=== PATIENT | male | born 1965 | race Caucasian/White ===

== ENCOUNTER → 2020-04-10 15:09 | Outpatient (CLI) | payer OTHER, SELFPAY ==
[2017-02-12 18:17] VITALS: BMI 32.8
--- NOTE | 2020-04-10 15:14 | RAD_ITS ---
STUDY: X-RAY - ABDOMEN/PELVIS REASON FOR EXAM: Male, 54 years old. abd discomfort, bloody stool TECHNIQUE: AP supine and upright views of the abdomen and pelvis. COMPARISON: None. FINDINGS: Normal visualized lung bases. There is an unremarkable bowel gas pattern. There is no demonstrated free abdominal air. The visualized liver, spleen and kidneys are grossly normal in size and morphology. Normal soft tissue structures. Normal visualized osseous structures. RAD/Abd Inc Decub and/or Erect IMPRESSION: Normal x-ray examination of the abdomen and pelvis. Electronically Signed: Michael Armendariz MD at 16:57 EST Tel , Service support ,
== END ==
LOC: MTLAB 15:12 → MTRAD 15:13
PROVIDERS: PCP Family Medicine; Referring Provider Family Medicine; Visit Provider Family Medicine
DX: K92.1 Melena (principal)
CPT/HCPCS: 74019

== ENCOUNTER → 2020-04-16 09:31 | Outpatient (CLI) | payer OTHER, SELFPAY ==
[2020-04-16 08:55] VITALS: BMI 32.9
[2020-04-16 10:36] LABS: Erythrocyte Sedimentation Rate 7 mm/hr (0-20)
[2020-04-16 10:39] LABS: Absolute Lymphocyte Count 1.46 X10^3/uL (0.83-4.51); Absolute Neutrophil Count 2.7 X10^3/uL (2.0-7.7); Basophil# 0.09 X10^3/uL; Basophil% 1.8 % (0-1); Eosinophils% 4.1 % (0-5); Hematocrit 46.7 % (40-54); Hemoglobin 15.2 g/dL (13.0-16.5); Lymphocyte # 1.46 X10^3/ul (4.0); Lymphocyte % 29.9 % (19-41); Mean Corp Hgb Conc 32.5 g/dL (32-36); Mean Corpuscular Volume 82.9 fL (80-94); Mean Platelet Vol. 10.2 fl (6.2-12.0); Monocyte# 0.45 X10^3/uL; Monocyte% 9.2 % (0-10); NRBC Flagged by Analyzer 0 % (0-5); Neutrophil # 2.66 X10^3/uL (2.7-7.7); Neutrophil % 54.4 % (47-70); Platelet Count 396 K/mm3 (150-450); RBC Distribution Width CV 12.8 % (11.6-14.6); RBC Distribution Width SD 38.7 fl (35.1-43.9); Red Blood Count 5.63 M/mm3 (4.6-6.2); White Blood Count 4.9 K/mm3 (4.4-11.0)
[2020-04-16 11:06] LABS: AST(SGOT) 23 U/L (15-37); Alanine Aminotransfer ALT/SGPT 46 U/L (16-61); Albumin, Serum 3.7 g/dL (3.2-5.0); Alkaline Phosphatase 87 U/L (45-117); Anion Gap 7 (5-15); BUN 11 mg/dL (7-18); BUN/Creat Ratio 9.5 RATIO (10-20); CRP < 2.90 mg/L (0.0-3.0); Chloride 103 mmol/L (98-107); Creatinine, Serum 1.16 mg/dL (0.70-1.30); EST Glomerular Filtration Rate 70 mL/min (>60); Est Glom Filt Rate - Afr Amer 84 mL/min (>60); Globulin 3.8 g/dL (2.2-4.2); Glucose 104 mg/dL (74-106); Protein, Total 7.5 g/dL (6.4-8.2); Sodium Level 138 mmol/L (136-145)
--- NOTE | 2020-04-16 14:38 | CT_ITS ---
STUDY: CT ABDOMEN AND PELVIS WITH CONTRAST REASON FOR EXAM: Male, 54 years old. PRESSURE BELOW UMBILICUS, ABD PAIN LT and gt; RT. RADIATION DOSAGE (If Supplied By Facility): CTDIvol = ( 17.07 ) mGy, DLP = ( 2251.06 ) mGycm TECHNIQUE: Transaxial images were obtained from the dome of the diaphragm to the symphysis pubis with oral contrast. Oral and amp; IV Gastrografin and amp; 100mL Isovue-300 was administered. Sagittal and coronal images were reconstructed. Individualized dose optimization techniques were used for this CT. COMPARISON: None. FINDINGS: Limited views of the lower chest show mild diffuse decreased density of the lung trevizo which could be subsegmental atelectasis or mild pulmonary edema. No gross effusions. There is decreased attenuation of the liver consistent with steatosis. Normal gallbladder and extrahepatic biliary system. Normal spleen. Normal pancreas. Normal bilateral adrenal glands. Normal right kidney. Left kidney has a 3 mm nonobstructing mid renal stone, otherwise normal left kidney. Normal visualized stomach. Normal small intestine. Nondistended colon. Sigmoid diverticulosis without diverticulitis. There is a 5 cm length of circumferential wall thickening in the distal sigmoid colon for which neoplasm cannot be excluded. This can be seen on axial image 109 and sagittal image 89. Colonoscopy is recommended. The appendix is visualized and appears normal. Normal abdominal aorta. Normal inferior vena cava. Normal retroperitoneum. Normal urinary bladder. There is enlargement of the prostate gland. There is a small umbilical hernia containing fat. Normal osseous structures. CT/Abdomen/Pelvis WITH Contrast IMPRESSION: 5 cm circumferentially thickened segment of distal sigmoid colon for which neoplasm is possible. Colonoscopy is recommended. Nonobstructing stone of the mid left kidney. Electronically Signed: Ruiz Lara MD at 18:08 EST , Service support ,
== END ==
PROVIDERS: PCP Family Medicine; Referring Provider Surgery; Visit Provider Surgery
DX: K56.609 Unspecified intestinal obstruction, unspecified as to partial versus complete obstruction (principal); R10.9 Unspecified abdominal pain
CPT/HCPCS: 36415; 74177; 80053; 85025; 85652; 86140; Q9967

== ENCOUNTER 2020-04-20 05:29 | Day surgery (SDC) | payer OTHER, SELFPAY ==
[2020-04-16 08:55] VITALS: BMI 32.9
[2020-04-20 05:49] VITALS: BP 143/80; PULSE 53; RESP 16; TEMP 36.5; O2SAT 97; BMI 31.8
[2020-04-20] MEDS: Lactated Ringers 1,000 ML 100 ML IV (05:55)
--- NOTE | 2020-04-20 06:19 | PCM.HP.BLA ---
Problem List (1) Abdominal pain Status: Acute Qualifiers: (2) Diarrhea Status: Acute Qualifiers: (3) Blood in stool Status: Acute History and Physical Date of Admission: 04/20/20 Intake Visit Reasons: CSCOPE/ BLOODY STOOL Chief Complaint: Blood in stool/diarrhea/abdominal pain Physicist Nuclear Required: No Accompanied by: Is patient in pain?: No Allergies lisinopril Allergy (Verified 04/16/20 08:58) Hives Medications Aspirin [Aspirin, Baby] 81 mg PO DAILY@0800 06/25/16 [History Confirmed 04/16/20] Hydrochlorothiazide [Hctz] 25 mg PO DAILY 06/25/16 [History Confirmed 04/16/20] amlodipine 5 mg tablet 10 mg PO DAILY tab 04/16/20 [History Confirmed 04/16/20] [facility] Medical History (Updated 04/16/20 @ 16:[address] Colten Rizvi MD) Blood in stool (Acute) Diarrhea (Acute) Abdominal pain (Acute) Hypertension (Chronic) Hemorrhoids (Acute) Surgical History (Updated 04/16/20 @ 08:54 by Daija Carrera) No history of previous surgery (Acute) Family History (Updated 04/16/20 @ 08:55 by Daija Carrera) Mother Hypertension High cholesterol Father High cholesterol Hypertension Social History (Updated 04/16/20 @ 16:[address] Colten Rizvi MD) Smoking Status: Never smoker HPI HPI HPI: EZ CARLISLE, is a 54 M who presents to the office today for surgical consultation regarding problems with diarrhea some intermittent blood per rectum and clots bloating crampy abdominal pain and left lower quadrant pain. The patient is referred by Dr. Ronnell Moss and a written copy my surgical consult recommendations will return to him. The patient thinks he had fever just on one occasion. He has been eating a normal diet. He has not lost weight. Both he and his Daxa have had COVID-19. That was several months ago. He does not believe that the current symptoms mimic that. He has had hypertension since age 28. His mother has had colon polyps. At the [facility] on June 25, 2016 I performed a colonoscopy for him. There was a diminutive sessile polyp in the mid sigmoid colon measuring only 5 mm. Mild sigmoid diverticulosis was identified. There is no active disease at that time. 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 He denies any previous hernia repairs. He has never had a cardiac stress test. He is able to climb a flight of stairs but does become dyspneic but he blames that upon his body weight. No history of myocardial infarction stroke diabetes or DVT HPI HPI HPI: EZ CARLISLE, is a 54 M who presents to the office today for ROS General General: Yes weight change; no appetite, fatigue, colon cancer, breast cancer or weakness HEENT HEENT: No difficulty swallowing, eye injury, eye surgery, swollen glands or hoarseness Endo Endocrine: No thyroid disease, diabetes mellitus, thyroid cancer, Hair loss, heat intolerance or cold intolerance Skin Skin: No rash or changing moles Breast Breast: No left breast lump, right breast lump, nipple discharge, breast pain, abnormal mammogram, abnormal US or breast enlargement Musc Musculoskeletal: No back problems, arthritis, rheumatoid arthritis, gout or joint pain Cardio Cardiovascular: Yes high blood pressure; no murmur, pacemaker, heart disease, atrial fibrillation, heart attack, heart stent, palpitations, shortness of breat with exertion or chest pain Psych Psychiatric: No depression, anxiety or hearing voices Resp Respiratory: No shortness of breath, No sleep apnea, No cough, No COPD, No asthma, No emphysema, No wheezing Gastro Gastrointestinal: Yes abdominal pain, No nausea or vomiting, Yes diarrhea, No constipation, Yes blood in stool, No acid reflux, Yes hemorrhoids, No ulcers, No gallbladder problem, No black,tarry stools Jorje Hematologic: No blood thinners, No blood disorders, No bleeding, No anemia, No blood clots Neuro Neurologic: No system reviewed and no additional complaints, except as docu, No as per HPI, No abnormal walking, No abnormal hearing, No abnormal movements, No abnormal speech, No behavioral changes, No burning sensations, No confusion, No seizure-like activity, No unsteadiness, No dizziness, No localized weakness, No frequent falls, No headache(s), No lack of coordination, No loss of vision, No memory loss, No numbness, No other visual disturbances, No radiating pain, No restless legs, No sensory deficit, No fainting, No tingling, No tremor(s), No weakness, No other Exam Const General: cooperative, healthy appearing, comfortable, no acute distress Nutritional Appearance: obese Orientation: alert, awake [facility] Head: normal to inspection Eyes General: appearance normal, both eyes and all related structures Neck Neck: normal visual inspection Carotids: normal carotid upstroke, no bruits Chest Breast Palpation: No nipple discharge Resp Effort & Inspection: normal respiratory effort Auscultation: clear to auscultation bilaterally Cardio Rate: regular rate Rhythm: regular rhythm Heart Sounds: no murmurs GI Inspection: normal to inspection Palpation: soft, no hepatosplenomegaly Auscultation: normal bowel sounds Other: Mild tenderness palpation left lower quadrant without mass rebound or guarding. Not pulsatile or expansile in the mid abdomen. Musc Cervical Spine: normal cervical lordosis Skin General: no rashes or lesions noted Neuro Cognition: normal cognition Extrem General: no calf tenderness Psych Affect: normal affect Assessment & Plan Problems 1. Generalized abdominal pain R10.84 2. Diarrhea, unspecified type R19.7 3. Blood in stool K92.1 Plan 54-year-old gentleman abdominal pain, change of bowel habits and diarrhea. Occasional blood per rectum. Bloating and cramping. June 2016 colonoscopy demonstrated a diminutive descending colon polyp and diverticulosis. His current presentation could represent low-grade diverticular disease. I recommend that we obtain laboratory analysis and a CT of the abdomen and pelvis. Pending that information the patient may very well require a diagnostic colonoscopy. He has had an opportunity to ask and have questions answered. He did have laboratory obtained today. It was not remarkable. There is no leukocytosis or anemia. No acute inflammation seen. The results of the CT are pending. I appreciate the opportunity of assisting with surgical care Copy: Dr. Ronnell Rizvi M.D., F.A.C.S. Orders Orders: Comprehensive Metabolic Profil Today R10.9 CRP Today R10.9 CBC W/Diff, Automated Today R10.9 Erythrocyte Sed Rate Today R10.9 Abdomen/Pelvis WITH Contrast Today K56.609, R10.9 Coding Level of Care Code 61316 Diagnoses Generalized abdominal pain R10.84 ??Abdominal location: generalized Diarrhea, unspecified type R19.7 ??Diarrhea type: unspecified type Blood in stool K92.[address] scan demonstrated apparent wall thickening of the very distal sigmoid colon. Laboratory was not remarkable. No evidence of leukocytosis or anemia. The patient presents for colonoscopy today with possible biopsy or polypectomy is indicated. Colten Rizvi M.D., F.A.C.S. Procedure Criteria Procedure Type: Elective COVID Risk Discussion: The surgeon/proceduralist and patient have discussed in detail the risk of exposure to and/or potential harm posed by the COVID-19 virus with having a surgery/procedure at this time versus the risk of delaying the surgery/procedure. It is not possible to know either the risk of delaying the surgery or procedure or chance of getting an infection with perfect accuracy, but a joint decision was made between the patient and the surgeon/proceduralist to proceed at this time with the scheduled surgery/procedure as indicated on the consent form.
--- NOTE | 2020-04-20 06:30 | COLBX_PTH ---
PATIENT: EZ CARLISLE LOC: EN U#:[id number] AGE/SX: 54/M ROOM: RE04/20/[address]: Dr. Colten Rizvi MD : 1965 BED: DIS: 04/20/2020 SPEC #: [id number] RECD: 04/20/20 09:59 STATUS: TRISTA ZARCO #: [id number] NICK: 04/20/20 06:[address]: Colten Rizvi DEPT: SURGICAL PATHOLOGY RECD BY: Kervin Hollingsworth ENTERED: 04/20/20 11:11 SP TYPE: COLON BX OTHR DR: Dr. Ronnell Moss MD Tissues: COLON BIOPSY Procedures: Surgery Specimen Level IV HEADER OPERATION: Colonoscopy PRE-OP DIAGNOSIS: Abdominal pain, diarrhea, blood in stool TISSUE SUBMITTED: Biopsy of colon mass at 12 cm MICROSCOPIC DIAGNOSIS Colonic mass at 12 cm, biopsy: Invasive adenocarcinoma. AM:alfredo 04/23/2020 MICROSCOPIC DESCRIPTION Slides are reviewed. GROSS DESCRIPTION Received in fixative is one container labeled with the patient's name and designated right colon mass at 12 cm, biopsy. The specimen consists of multiple irregular fragments of light nicole soft tissue that in aggregate measure 1 x 0.5 x 0.1 cm. The specimen is totally submitted in one cassette. / AM:alfredo 04/20/20 TC:0 CPT: 26609 ADDENDUM ADDENDUM ADDENDUM ADDENDUM ADDENDUM ADDENDUM ADDENDUM ADDENDUM ADDENDUM ADDENDUM 05/02/2020 10:26 ADDENDUM 05/02/2020 10:26 ADDENDUM 05/02/2020 10:26 ADDENDUM 05/02/2020 10:26 ADDENDUM 05/02/2020 10:26 This addendum is added to incorporate an outside pathology consultation report. The case was examined at [facility] (#[id number]) and the following diagnosis was rendered. Colon, 12 cm, mass, biopsy: Invasive adenocarcinoma. Please see complete above mentioned consultation report in EMR
[2020-04-20 07:03] VITALS: BP 111/86; BP 143/80; PULSE 62; RESP 16; TEMP 36.3; O2SAT 94
--- NOTE | 2020-04-20 07:07 | OP.COLON_ITS ---
Patient Name: Luis Kan Procedure Date: 04/20/2020 6:12 AM Date of : 1965 Age: 54 Procedure: Colonoscopy Indications: Rectal bleeding Providers: Colten Rizvi MD Referring MD: Ronnell Moss Md Medicines: See the Anesthesia note for documentation of the administered medications Patient Profile: Last Colonoscopy: June 2016. Complications: No immediate complications. Procedure: Pre-Anesthesia Assessment: - Prior to the procedure, a History and Physical was performed, and patient medications and allergies were reviewed. The patient's tolerance of previous anesthesia was also reviewed. The risks and benefits of the procedure and the sedation options and risks were discussed with the patient. All questions were answered, and informed consent was obtained. Prior Anticoagulants: The patient has taken no previous anticoagulant or antiplatelet agents. ASA Grade Assessment: II - A patient with mild systemic disease. After reviewing the risks and benefits, the patient was deemed in satisfactory condition to undergo the procedure. After I obtained informed consent, the scope was passed under direct vision. Throughout the procedure, the patient's blood pressure, pulse, and oxygen saturations were monitored continuously. The colonoscope was introduced through the anus and advanced to the cecum, identified by appendiceal orifice and ileocecal valve. The colonoscopy was performed without difficulty. The patient tolerated the procedure well. The quality of the bowel preparation was adequate to identify polyps. The ileocecal valve and the appendiceal orifice were photographed. Scope In: 6:30:40 AM Scope Withdrawal Time 0 hours 14 minutes 10 seconds Scope Out: 6:57:17 AM Total Procedure Duration Time 0 hours 26 minutes 37 seconds Findings: The digital rectal exam findings include non-thrombosed internal hemorrhoids and internal hemorrhoids that prolapse with straining, but spontaneously regress to the resting position (Grade II). Pertinent negatives include normal prostate (size, shape, and consistency). Multiple diverticula were found in the sigmoid colon and descending colon. A fungating partially obstructing large mass was found in the recto-sigmoid colon. The mass was partially circumferential (involving one-half of the lumen circumference). The mass measured five cm in length. Oozing was present. This was biopsied with a cold forceps for histology. The exam was otherwise without abnormality. Impression: - Non-thrombosed internal hemorrhoids and internal hemorrhoids that prolapse with straining, but spontaneously regress to the resting position (Grade II) found on digital rectal exam. - Diverticulosis in the sigmoid colon and in the descending colon. - Malignant partially obstructing tumor in the recto-sigmoid colon. 12cm measured from anorectal verge. Biopsied. Recommendation: - Discharge patient to home. - Resume previous diet. - Continue present medications. - Repeat colonoscopy in 1 year for surveillance. - Refer to a colo-rectal surgeon in 1 week. Procedure Code(s): --- Professional --- 08283, Colonoscopy, flexible; with biopsy, single or multiple Diagnosis Code(s): --- Professional --- K64.1, Second degree hemorrhoids C19, Malignant neoplasm of rectosigmoid junction K56.690, Other partial intestinal obstruction K62.5, Hemorrhage of anus and rectum K57.30, Diverticulosis of large intestine without perforation or abscess without bleeding CPT copyright 2017 [employer]. All rights reserved. The codes documented in this report are preliminary and upon automatic brine mixer operator review may be revised to meet current compliance requirements. Colten Rizvi MD 04/20/2020 7:05:50 AM This report has been signed electronically. Number of Addenda: 0 Note Initiated On: 04/20/2020 6:12 AM
--- NOTE | 2020-04-20 07:07 | OP.CCLET_ITS ---
04/20/2020 Ronnell Moss Md Re : Colonoscopy procedure for Luis Kan Dear Ajay This procedure was performed on Monday, April 20, 2020. My impressions and recommendations are as follows: Impressions : - Non-thrombosed internal hemorrhoids and internal hemorrhoids that prolapse with straining, but spontaneously regress to the resting position (Grade II) found on digital rectal exam. - Diverticulosis in the sigmoid colon and in the descending colon. - Malignant partially obstructing tumor in the recto-sigmoid colon. 12cm measured from anorectal verge. Biopsied. Recommendations : - Discharge patient to home. - Resume previous diet. - Continue present medications. - Repeat colonoscopy in 1 year for surveillance. - Refer to a colo-rectal surgeon in 1 week. My findings are described in the full procedure note, which is enclosed. If I can be of further assistance, please feel free to contact me at Doctor phone number(s): Work: . Sincerely, Colten Rizvi MD 04/20/2020 7:05:50 AM This report has been signed electronically.
[2020-04-20 07:08] VITALS: BP 111/83; BP 143/80; PULSE 57; RESP 16; O2SAT 93
[2020-04-20 07:13] VITALS: BP 108/86; BP 143/80; PULSE 55; RESP 16; O2SAT 94
[2020-04-20 07:18] VITALS: BP 114/84; BP 143/80; PULSE 50; RESP 16; TEMP 36.7; O2SAT 97
[2020-04-20 08:17] VITALS: BP 143/80
[2020-04-21 10:48] LABS: Carcinoembryonic Antigen 6.8 ng/mL (0.0-4.7)
== END 2020-04-20 08:18 | disposition home or self-care (01) ==
LOC: EN 05:29 → AC 05:30
PROVIDERS: PCP Family Medicine; Referring Provider Family Medicine; Visit Provider Surgery
PROC: 0DJD8ZZ Inspection of Lower Intestinal Tract, Via Natural or Artificial Opening Endoscopic (ICD-10-PCS; CPT 45378; principal; 2020-04-20 06:25)
DX: K64.1 Second degree hemorrhoids (principal); C19 Malignant neoplasm of rectosigmoid junction; K56.690 Other partial intestinal obstruction; K57.30 Diverticulosis of large intestine without perforation or abscess without bleeding; I10 Essential (primary) hypertension; Z79.82 Long term (current) use of aspirin; Z88.8 Allergy status to other drugs, medicaments and biological substances
CPT/HCPCS: 45380; 82378; 87426; 88305; J7120; J2405

== ENCOUNTER → 2020-05-03 16:37 | Outpatient (CLI) | payer OTHER, SELFPAY ==
[2020-04-26 09:24] VITALS: BMI 32.8
--- NOTE | 2020-05-03 16:51 | CT_ITS ---
STUDY: CT CHEST WITH CONTRAST REASON FOR EXAM: Male, 55 years old. RECTAL CANCER STAGING. NEW DX. HTN RADIATION DOSAGE (If Supplied By Facility): CTDIvol = ( 17.29 ) mGy, DLP = ( 672.69 ) mGycm TECHNIQUE: Transaxial imaging was performed following intravenous administration of IV 100mL Isovue-300. Individualized dose optimization techniques were used for this CT. COMPARISON: None. FINDINGS: There is mild diffuse interstitial thickening with some is changes and diffuse groundglass opacity consistent with COPD.. There is no demonstrated pleural abnormality. Heart is upper normal size and there appears to be coronary artery calcification Normal mediastinum. Normal hilar regions. Normal enhanced pulmonary arteries. Atherosclerotic changes of the aorta with borderline aneurysmal dilatation of the proximal ascending aorta measuring approximately 3.97 x 3.85 cm Dorsal spine demonstrates mild degenerative change. Mild nonspecific fatty infiltration of liver. CT/Chest WITH Contrast IMPRESSION: COPD and ASHD. No evidence for pulmonary metastasis or metastatic adenopathy. Findings as above Electronically Signed: Jimy Peres MD at 18:58 EST , Service support ,
== END ==
PROVIDERS: PCP Family Medicine; Referring Provider Internal Medicine Medical Oncology; Visit Provider Internal Medicine Medical Oncology
DX: C20 Malignant neoplasm of rectum (principal)
CPT/HCPCS: 71260; Q9967

== ENCOUNTER 2020-05-09 07:22 | Day surgery (SDC) | payer OTHER, SELFPAY ==
[2020-04-26 09:24] VITALS: BMI 32.8
[2020-05-07 08:21] VITALS: BMI 31.8
[2020-05-09] VITALS (8 sets, daily range): BP systolic 112–150; BP diastolic 82–94; PULSE 38–54; RESP 14–16; TEMP 36.3–36.6; O2SAT 93–100; BMI 30.9
--- NOTE | 2020-05-09 07:25 | EKG12_ITS ---
Test Reason : PRE-OP Blood Pressure : / mmHG Vent. Rate : 045 BPM Atrial Rate : 045 BPM P-R Int : 206 ms QRS Dur : 166 ms QT Int : 522 ms P-R-T Axes : 021 -33 -15 degrees QTc Int : 451 ms Sinus bradycardia Left axis deviation Right bundle branch block Abnormal ECG Confirmed by DAPHNEY WILKINSON, PRESTON ([id number]), avid editor JUAN MANUEL WEEKS ([id number]) on 05/11/2020 8:16:51 AM Referred By: Colten Rizvi Confirmed By:PRESTON SHELLEY MD
[2020-05-09] MEDS: Lactated Ringers 1,000 ML 100 ML IV (08:09)
--- NOTE | 2020-05-09 09:14 | PCM.HP.STD ---
Problem List (1) Rectal adenocarcinoma Status: Acute History of Present Illness Date of Admission: 05/09/20 The patient is a 55 year old M for port placement to assist with neoadjuvant therapy for recently diagnosed rectal cancer. Patient was having abdominal cramping and obstructive symptoms. CT scan and colonoscopy demonstrated biopsy-proven rectal cancer at 12 cm. He has been seen by Dr. Victoriano Lima at [facility] and he is also been seen locally by Dr. Elieser Dang. Neoadjuvant therapy is recommended and a port will facilitate that care. Past Medical History Past Medical History (Chronic Problems): Chronic Problems (Last Reviewed 05/07/20 @ 08:22 by Laura Rodriguez RN) Hypertension (Chronic) Medical History: Medical History (Last Reviewed 05/07/20 @ 08:22 by Laura Rodriguez RN) Blood in stool (Acute) K92.1 Diarrhea (Acute) R19.7 Abdominal pain (Acute) R10.9 Hypertension (Chronic) I10 Hemorrhoids K64.9 Allergies lisinopril Allergy (Severe, Verified 05/07/20 08:20) Hives Home Medications: Ambulatory Orders Medication Instructions Recorded Aspirin [Aspirin, Baby] 81 mg PO DAILY@0800 06/25/16 Hydrochlorothiazide [Hctz] 25 mg PO DAILY 06/25/16 amlodipine 5 mg tablet 10 mg PO DAILY tab 04/16/20 Magnesium Oxide [Magnesium] 500 mg PO DAILY 04/18/20 Surgical History: Surgical History (Last Reviewed 05/07/20 @ 08:22 by Laura Rodriguez RN) History of vasectomy Z98.52 Smoking Status: Never smoker Tobacco Use: Non-smoker Review of Systems Constitutional: Denies: Fever Cardiovascular: Denies: Chest Pain Gastrointestinal: Denies: Abdominal Pain VTE Information - Inpt Only VTE Present on Admission: No - Physical Exam Vitals/I&O's: Vital Signs Temp Pulse Resp BP Pulse Ox 97.5 F L 45 L 16 150/87 H 97 05/09/20 07:41 05/09/20 07:41 05/09/20 07:41 05/09/20 07:41 05/09/20 07:41 Oxygen Delivery Method Room Air Weight: 221 lb 12.56 oz Body Mass Index (BMI) 30.9 General: Alert, Oriented x3, Cooperative Oral: Moist Mucosa Neck: Supple Lungs: Clear to auscultation, Normal air movement Cardiovascular: Regular rate, Regular Rhythm Abdomen: Soft Extremities: No Calf Tenderness Psych/Mental Status: Normal Affect Microbiology Past 72 Hours 05/07/20 09:35 Interface Orders SARS-CoV-2 Antigen (Rapid) - Final Current Medications Lactated Ringer's () 1,000 mls @ 100 mls/hr IV .Q10H TAMIKO Last Admin: 05/09/20 08:09 Dose: 100 mls/hr Documented by: Assessment/Plan All Active Problems (Last Reviewed 05/07/20 @ 08:22 by Laura Rodriguez RN) Rectal adenocarcinoma (Acute) Blood in stool (Acute) Diarrhea (Acute) Abdominal pain (Acute) I plan to proceed with placement of a internal jugular port. I will attempt the right side and if not possible than the left. He is aware of the technique, benefit, risk and alternatives. We will proceed as noted. Colten Rizvi M.D., F.A.C.S. Procedure Criteria Procedure Type: Elective COVID Risk Discussion: The surgeon/proceduralist and patient have discussed in detail the risk of exposure to and/or potential harm posed by the COVID-19 virus with having a surgery/procedure at this time versus the risk of delaying the surgery/procedure. It is not possible to know either the risk of delaying the surgery or procedure or chance of getting an infection with perfect accuracy, but a joint decision was made between the patient and the surgeon/proceduralist to proceed at this time with the scheduled surgery/procedure as indicated on the consent form.
[2020-05-09] MEDS: Cefazolin 2 GM in 0.9% Normal Saline 100 ML IV (09:19)
--- NOTE | 2020-05-09 09:23 | DCINST_ITS ---
Discharge Diet: No Restrictions - P Discharge Activity: Return to Normal Activity, May Shower - Leave the bandage on for 2-3 days. When you remove the bandage, leave the steri-strips intact until they fall off. May shower in (days): 1 Additional Dressing/Incision Instructions:: Leave the bandage on for 2-3 days. When you remove the bandage, leave the steri-strips intact until they fall off. Allergies/Adverse Reactions: Allergies lisinopril Allergy (Severe, Verified 05/07/20 08:20) Hives Medications to take at Discharge Aspirin [Aspirin, Baby] 81 mg PO DAILY@0800 06/25/16 Hydrochlorothiazide [Hctz] 25 mg PO DAILY 06/25/16 amlodipine 5 mg tablet 10 mg PO DAILY tab 04/16/20 Magnesium Oxide [Magnesium] 500 mg PO DAILY 04/18/20 Primary Care Physician: Ronnell Moss MD [Primary Care Provider] - Test Results: Test results from this visit will be discussed in further detail at your follow- up appointment, if applicable. Please Follow Up With: Colten Rizvi MD - [phone] When: Office appt. if needed, please call
[2020-05-09] MEDS: Bupivacaine Mpf 0.5% 30 ML VIAL (09:50)
[2020-05-09] MEDS: Lidocaine 1% (30 ml sdv) 30 ML Vial (09:50)
--- NOTE | 2020-05-09 10:02 | OP.PCM_ITS ---
Problem List (1) Rectal adenocarcinoma Status: Acute Report of Operation Date of Procedure: 05/09/20 Pre-Operative Diagnosis: Adenocarcinoma of the rectum Post-Operative Diagnosis: Same Surgery/Procedure Performed:: Right internal jugular 6 German port placement. Reference [id number]. Lot number [id number]. Expiry date 02/19/2021 Description of Surgical Findings:: Timeout and informed consent was obtained. 55-year-old gentleman was taken to the operating room. He was placed supine on the table. He underwent monitored anesthesia care. Ancef 2 g were given intravenously. The right neck and chest were sterilely prepped and draped. Under ultrasound guidance 1% lidocaine mixed 50-50 with 0.5% Marcaine was used as a local anesthetic. Total 25 cc was used. Local was instilled. Under ultrasound guidance micropuncture needle was inserted in the right internal jugular vein followed by Seldinger wire. Local was instilled down upon the chest wall. Mid clavicular line second intercostal space local was instilled. A transverse incision was created. Electrocautery was used to make a subcutaneous pocket. The tubing was tunneled from the neck to the chest site. Then using 3 cc of Isovue contrast to help illuminate the tubing I position the tubing to be very close to the SVC atrial junction. The tubing was then irrigated. It was amputated secured to the port and then sec ured there with the attachment device. The port was placed in the pocket secured there with 2-0 silk. The port site was closed interrupted 3-0 Vicryl subdermal stitches. The neck was closed with interrupted 5-0 Vicryl subdermal stitch. The port was accessed. It aspirated easily. It was flushed with saline and then 2 cc of heparinized saline. Steri-Strips Telfa and OpSite dressings applied. Sponge and instrument and needle counts were reported to the surgeon to be correct. Specimens none. Drains none. Blood loss minimal. Colten Rizvi M.D., F.A.C.S. Type of Anesthesia:: Local MAC Anesthesiologist: Carlos Batista
--- NOTE | 2020-05-09 10:15 | RAD_ITS ---
STUDY: X-RAY CHEST REASON FOR EXAM: Male, 55 years old. POST OP PORT PLACEMENT TECHNIQUE: Single AP portable view of the chest. COMPARISON: Comparison is made with prior study dated 05/06/2014. FINDINGS: A right-sided portacatheter has been placed. The tip is in the proximal portion of the superior vena cava. The lungs are clear and expanded. There is no demonstrated pleural abnormality. Normal size heart. Normal mediastinum and willa. Normal visualized pulmonary arteries. There is atherosclerotic tortuosity of the aortic arch and descending thoracic aorta. Normal visualized thoracic spine. Normal visualized ribs, clavicles, and shoulders. There is no demonstrated abnormality of the visualized soft tissue structures of the upper abdomen. RAD/CXR for Line Placement IMPRESSION: The tip of the right portacatheter is in the proximal portion of the superior vena cava. Electronically Signed: Salty Montero MD at 10:33 EST , Service support ,
== END 2020-05-09 11:42 | disposition home or self-care (01) ==
LOC: SDC 07:22 → AC 07:23
PROVIDERS: PCP Family Medicine; Referring Provider Surgery; Visit Provider Surgery
PROC: (CPT 36561; principal; 2020-05-09 09:15)
DX: C20 Malignant neoplasm of rectum (principal); I10 Essential (primary) hypertension; Z79.82 Long term (current) use of aspirin; Z87.19 Personal history of other diseases of the digestive system; Z88.8 Allergy status to other drugs, medicaments and biological substances; Z98.52 Vasectomy status
CPT/HCPCS: 00532; 36561; 71045; 77001; 77295; 77300; 77307; 87426; 93005; C9803; J7120; J2405

== ENCOUNTER 2020-08-10 11:14 | Emergency (ER) | payer OTHER, SELFPAY ==
[2020-05-07 08:21] VITALS: BMI 31.8
[2020-08-08 09:48] VITALS: BMI 30.8
[2020-08-10 11:16] VITALS: BP 149/93; PULSE 75; RESP 16; TEMP 36.8; O2SAT 97; BMI 30.8
[2020-08-10 11:18] VITALS: BP 149/93; PULSE 75; RESP 16; TEMP 36.8; O2SAT 97
--- NOTE | 2020-08-10 11:32 | CT_ITS ---
STUDY: CT ABDOMEN AND PELVIS WITH CONTRAST REASON FOR EXAM: Male, 55 years old. Diffuse abdominal pain, nausea RADIATION DOSAGE (If Supplied By Facility): CTDIvol = ( 14.205 ) mGy, DLP = ( 1045.97 ) mGycm TECHNIQUE: Transaxial images were obtained from the dome of the diaphragm to the symphysis pubis with oral contrast. Oral and amp; IV Gastrografin and amp; 100mL Isovue-300 was administered. Sagittal and coronal images were reconstructed. Individualized dose optimization techniques were used for this CT. COMPARISON: None. FINDINGS: Lung bases show chronic interstitial changes with superimposed interstitial edema. The visualized portions of the heart are within normal limits. Normal liver. Normal gallbladder and extrahepatic biliary system. Normal spleen. Normal pancreas. Normal bilateral adrenal glands. Normal right kidney. Normal left kidney. There is a small hiatal hernia. Normal small intestine. There are multiple colonic diverticula consistent with diverticulosis. The appendix is visualized and appears normal. Appendix best seen on coronal recon images 63 through 71 Normal abdominal aorta. Normal inferior vena cava. Normal retroperitoneum. Normal urinary bladder. There are prostatic calcifications. Normal abdominal wall. Normal osseous structures. CT/Abdomen/Pelvis WITH Contrast IMPRESSION: Chronic interstitial changes in both lung bases with superimposed interstitial edema No suspicious solid organ abnormality Small hiatal hernia Diverticulosis Electronically Signed: Tyler Rasheed MD at 14:10 EDT , Service support ,
--- NOTE | 2020-08-10 11:33 | EX.ED.DYSGE1 ---
HPI History of Present Illness Chief Complaint: Abd Pain Informant: patient and spouse/S.O. Onset/Context/Timing Onset: Days (3 days) Context: Gradual Onset Timing: Waxes and wanes Current Severity: Moderate Maximum Severity: Moderate Narrative Narrative: Patient presents with a 3-day history of mid upper abdominal pain. Patient is currently on oral chemotherapy secondary to rectal cancer. His last dose was taken Thursday morning, august 06. He developed pain on the . Pain has been constant in the center portion of his abdomen. Pain is worse with eating or drinking. He is still having bowel movements. He denies any prior abdominal surgeries. [facility] Medical History Abdominal pain Blood in stool Diarrhea Hemorrhoids Hypertension Palmar plantar erythrodysaesthesia Home Medications aspirin 81 mg PO DAILY 06/25/16 [History Last Taken Unknown] hydrochlorothiazide 25 mg PO DAILY 06/25/16 [History Last Taken Unknown] amlodipine 5 mg tablet 10 mg PO DAILY tab 04/16/20 [History Last Taken Unknown] magnesium oxide 500 mg PO DAILY 04/18/20 [History Last Taken Unknown] lidocaine-prilocaine 1 applicatio TP DAILY PRN PRN 30 Days #1 tube 05/14/20 [Rx Last Taken Unknown] ondansetron 8 mg PO Q8H PRN PRN 10 Days #30 tab.rapdis 05/14/20 [Rx Last Taken Unknown] capecitabine [Xeloda] 2,000 mg PO BID 05/22/20 [History Last Taken Unknown] acetaminophen 500 mg PO DAILY 05/29/20 [History Last Taken Unknown] famotidine [Pepcid] 40 mg PO DAILY #30 tab 08/10/20 [Rx Last Taken Unknown] oxaliplatin 100 mg IV BOLUS 08/10/20 [History Last Taken Unknown] sucralfate [Carafate] 10 ml PO BID #200 ml 08/10/20 [Rx Last Taken Unknown] Allergy/AdvReac Type Severity Reaction Status Date / Time lisinopril Allergy Severe Hives Verified 08/08/20 09:43 Family History Mother High cholesterol Hypertension CVA (cerebral vascular accident) Colon polyps Father High cholesterol Hypertension Heart failure Afib Surgical History History of vasectomy Social History Smoking Status: Never smoker ROS ROS ED Constitutional Constitutional ED: Denies chills or fever(s) Eyes Eyes: Denies change in vision ENT ENT ED: Denies sore throat Cardiovascular Cardiovascular: Denies chest pain Respiratory/Chest Respiratory/Chest: Denies cough or dyspnea Gastrointestinal Gastrointestinal: Reports abdominal pain and nausea; Denies diarrhea or vomiting Genitourinary Genitourinary ED: Denies dysuria Musculoskeletal Musculoskeletal: Denies back pain Integumentary Denies rash Neurologic Neurologic: Denies headache(s) or weakness Psychiatric Psychiatric: Denies anxiety or depression Endocrine Endocrinology: Denies polydipsia or polyuria Allergic/Immunologic Allergic/Immunologic ED: Denies urticaria EXAM Physical Exam Const Vital Signs: 08/10/20 11:16 08/10/20 11:18 08/10/20 14:18 Temperature 98.2 F 98.2 F 98.3 F Temperature Source Temporal Temporal Oral Pulse Rate 75 75 55 L Respiratory Rate 16 16 16 Blood Pressure 149/93 H 149/93 H 151/96 H Blood Pressure Mean 111 111 114 Pulse Ox 97 97 97 Oxygen Delivery Method Room Air Room Air Room Air Positive well nourished and well developed General Appearance ED: well developed HEENT Reports normocephalic and head/scalp atraumatic Eyes PERRL and EOMs intact bilaterally Neck supple Chest Wall inspection of chest normal and palpation of chest normal Resp normal respiratory effort and clear to auscultation bilaterally Cardio regular rate and regular rhythm GI Auscultation: normoactive bowel sounds Palpation: soft and tender epigastric; Negative for guarding or rebound tenderness present Extremity normal to inspection Neuro oriented x3 and no sensory deficits noted Sensorium / Orientation: alert Motor Exam: strength 5/5 throughout Psych mental status grossly normal Skin no rashes or lesions noted MDM MDM MDM Narrative Medical decision making narrative: Patient initially given morphine and Zofran for pain. He is given IV fluids. Lab Data Attestation: I reviewed the patient's lab results. Labs: Laboratory Results - last 24 hr 08/10/20 08/10/20 12:10 12:10 WBC 2.6 L RBC 4.20 L Hgb 12.5 L Hct 36.1 L MCV 86.0 MCH 29.8 MCHC 34.6 RDW Std Deviation 48.7 H RDW Coeff of Jennie 16.7 H Plt Count 253 MPV 9.3 Immature Gran % (Auto) 0.800 Neut % (Auto) 58.1 Lymph % (Auto) 9.7 L [place] % (Auto) 28.7 H Eos % (Auto) 1.9 Baso % (Auto) 0.8 Absolute Neuts (auto) 1.5 L Absolute Lymphs (auto) 0.25 L Nucleated RBC % 0 Differential Comment Diff Path Review May foll Platelet Estimate ADEQUATE RBC Morphology NORM C+C Sodium 137 Potassium 3.2 L Chloride 106 Carbon Dioxide 25.0 Anion Gap 6 BUN 17 Creatinine 1.06 Estim Creat Clear Calc 81.30 Est GFR (MDRD) Af Amer 93 Est GFR (MDRD) Non-Af 77 BUN/Creatinine Ratio 16.0 Glucose 105 Calcium 8.5 Total Bilirubin 0.70 Direct Bilirubin 0.16 AST 15 ALT 26 Alkaline Phosphatase 61 Total Protein 6.4 Albumin 3.2 Globulin 3.2 Lipase 204 Radiography Diagnostic Testing: Radiology Impression Abdomen/Pelvis CT 08/10/20 11:32 IMPRESSION: Chronic interstitial changes in both lung bases with superimposed interstitial edema No suspicious solid organ abnormality Small hiatal hernia Diverticulosis Electronically Signed: Tyler Rasheed MD at 14:10 EDT , Service support , Treatment and Re-Evaluation Comments:: Patient did require second dose of Dilaudid for pain control. Test results discussed with patient and at bedside. He was given p.o. potassium replacement. I spoke with Dr. Dang, the patient's oncologist. He is also concerned that at this time we do not have a definitive cause of his pain. Patient has been seen by Dr. Colten Rizvi from surgery in the past. Dr. Dang recommended I speak with him about possibly setting up an EGD. Dr. Rizvi is out of town but I was able to speak Dr. Denney. He will see the patient in the office on Thursday. Patient will be discharged with a prescription for Carafate and Protonix. Return instructions have been provided. Discharge Plan Triage Chief Complaint: Abd Pain ED Provider: Mayela Pelayo Dx/Rx/DC Orders Clinical Impression: Abdominal pain Instructions: ED Unknown Causes of Abdominal ... Prescriptions: New famotidine [Pepcid] 40 mg tablet 40 mg PO DAILY Qty: 30 RF: 0 sucralfate [Carafate] 100 mg/mL suspension 10 ml PO BID Qty: 200 RF: 0 No Action aspirin 81 MG tablet,chewable 81 mg PO DAILY RF: 0 hydrochlorothiazide 25 MG tablet 25 mg PO DAILY RF: 0 amlodipine 5 mg tablet 10 mg PO DAILY RF: 0 magnesium oxide 500 MG capsule 500 mg PO DAILY RF: 0 ondansetron 8 MG tablet,disintegrating 8 mg PO Q8H PRN PRN (Reason: Nausea) 10 Days Qty: 30 RF: 3 lidocaine-prilocaine 30 GM cream 1 applicatio TP DAILY PRN PRN (Reason: Not Specified) 30 Days Qty: 1 RF: 2 capecitabine [Xeloda] 500 MG tablet 2,000 mg PO BID RF: 0 acetaminophen 500 MG tablet 500 mg PO DAILY RF: 0 oxaliplatin 100 mg IV BOLUS RF: 0 Primary Care Provider: Ronnell Moss Referrals: Nahun Denney MD [STAFF PHYSICIAN] - 3-5 Days Ronnell Moss MD [Primary Care Provider] - Disposition Disposition: Home, self care
[2020-08-10] MEDS: 0.9% Normal Saline 1,000 ML 1000 ML IV (12:16)
[2020-08-10] MEDS: Ondansetron 4 MG/2 ML Vial IV (12:18)
[2020-08-10] MEDS: Morphine 4 MG/ML Syringe IV (12:18)
[2020-08-10 12:28] LABS: Absolute Lymphocyte Count 0.25 X10^3/uL (0.83-4.51); Absolute Neutrophil Count 1.5 X10^3/uL (2.0-7.7); Basophil# 0.02 X10^3/uL; Basophil% 0.8 % (0-1); Eosinophil# 0.05 X10^3/uL; Eosinophils% 1.9 % (0-5); Hematocrit 36.1 % (40-54); Hemoglobin 12.5 g/dL (13.0-16.5); Lymphocyte # 0.25 X10^3/ul (0.83-4.51); Lymphocyte % 9.7 % (19-41); Mean Corp Hgb Conc 34.6 g/dL (32-36); Mean Corpuscular Hgb 29.8 pg (27.0-32.0); Mean Platelet Vol. 9.3 fl (6.2-12.0); Monocyte# 0.74 X10^3/uL; Monocyte% 28.7 % (0-10); NRBC Flagged by Analyzer 0 % (0-5); Neutrophil % 58.1 % (47-70); POSITIVE DIFFERENTIAL YES; Platelet Count 253 K/mm3 (150-450); RBC Distribution Width CV 16.7 % (11.6-14.6); RBC Distribution Width SD 48.7 fl (35.1-43.9); White Blood Count 2.6 K/mm3 (4.4-11.0)
[2020-08-10 12:35] LABS: Differential Indicated SCAN CRITERIA MET
[2020-08-10 12:41] LABS: AST(SGOT) 15 U/L (15-37); Alanine Aminotransfer ALT/SGPT 26 U/L (16-61); Albumin, Serum 3.2 g/dL (3.2-5.0); Alkaline Phosphatase 61 U/L (45-117); Anion Gap 6 (5-15); BUN 17 mg/dL (7-18); Bilirubin, Direct 0.16 mg/dL (0.00-0.30); Calcium,Total 8.5 mg/dL (8.5-10.1); Chloride 106 mmol/L (98-107); Creatinine, Serum 1.06 mg/dL (0.70-1.30); EST Glomerular Filtration Rate 77 mL/min (>60); Est Glom Filt Rate - Afr Amer 93 mL/min (>60); Globulin 3.2 g/dL (2.2-4.2); Glucose 105 mg/dL (74-106); Lipase 204 U/L (73-393); Potassium 3.2 mmol/L (3.5-5.1); Protein, Total 6.4 g/dL (6.4-8.2); Sodium Level 137 mmol/L (136-145)
[2020-08-10 12:58] LABS: Platelet Estimate ADEQUATE (ADEQ)
[2020-08-10 12:59] LABS: Red Cell Morphology NORM C+C NORMAL (NORM C&C)
[2020-08-10] MEDS: HYDROmorphone 0.5 MG/0.5 ML SYRINGE IV (14:13)
[2020-08-10 14:18] VITALS: BP 151/96; PULSE 55; PULSE 56; RESP 14; RESP 16; TEMP 36.8; O2SAT 97; O2SAT 98
[2020-08-10] MEDS: 0.9% Normal Saline 1,000 ML 150 ML IV (14:27)
[2020-08-10] MEDS: Potassium Chloride Oral Tablet 20 MEQ 40 MEQ PO (14:56)
[2020-08-10 15:56] VITALS: BP 137/97; PULSE 62; RESP 15; O2SAT 92
[2020-08-13 13:25] LABS: Pathologist Review Reviewed
== END 2020-08-10 15:59 | disposition home or self-care (01) ==
PROVIDERS: Emergency Provider Emergency Medicine; PCP Family Medicine
DX: R10.9 Unspecified abdominal pain (principal); K44.9 Diaphragmatic hernia without obstruction or gangrene; I10 Essential (primary) hypertension; C20 Malignant neoplasm of rectum; Z79.82 Long term (current) use of aspirin; Z79.899 Other long term (current) drug therapy
CPT/HCPCS: 36591; 74177; 80048; 80076; 83690; 85025; 96361; 96374; 96375; 99282; J7030; Q9967; A4216; J2405

== ENCOUNTER → 2020-09-21 14:31 | Outpatient (CLI) | payer OTHER, SELFPAY ==
[2020-05-07 08:21] VITALS: BMI 31.8
[2020-09-10 10:28] VITALS: BMI 31.5
== END ==
PROVIDERS: PCP Family Medicine; Visit Provider Nurse Practitioner Family
DX: Z00.00 Encounter for general adult medical examination without abnormal findings (principal)

== ENCOUNTER 2020-09-21 23:13 | Inpatient (IN) | payer OTHER, SELFPAY ==
[2020-05-07 08:21] VITALS: BMI 31.8
[2020-09-10 10:28] VITALS: BMI 31.5
[2020-09-21 23:13] VITALS: BP 134/85; PULSE 97; RESP 18; TEMP 36.1; O2SAT 99; BMI 30.8
--- NOTE | 2020-09-21 23:25 | EX.ED.DYSGE1 ---
HPI History of Present Illness Chief Complaint: General Illness Informant: patient and spouse/S.O. Onset/Context/Timing Onset: Days (3 days) Context: Gradual Onset Maximum Severity: Moderate Narrative Narrative: Patient presents with nausea and diarrhea for the past 3 days. This afternoon he developed cough and congestion. He had temperature up to 102.2 at home. Patient is currently on chemotherapy for rectal cancer. Last chemo was on September 10. At that time he was neutropenic. Patient was seen in the oncology office today for fluids. Stool sample revealed evidence of leuks but C. difficile was negative. [facility] Medical History Abdominal pain Blood in stool Constipation Diarrhea Hemorrhoids Hypertension Hypokalemia Neutropenia Palmar plantar erythrodysaesthesia Skin cancer of nose Home Medications aspirin 81 mg PO DAILY 06/25/16 [History Last Taken Unknown] hydrochlorothiazide 25 mg PO DAILY 06/25/16 [History Last Taken Unknown] amlodipine 5 mg tablet 10 mg PO DAILY tab 04/16/20 [History Last Taken Unknown] magnesium oxide 500 mg PO DAILY 04/18/20 [History Last Taken Unknown] lidocaine-prilocaine 1 applicatio TP DAILY PRN PRN 30 Days #1 tube 05/14/20 [Rx Last Taken Unknown] ondansetron 8 mg PO Q8H PRN PRN 10 Days #30 tab.rapdis 05/14/20 [Rx Last Taken Unknown] capecitabine [Xeloda] 2,000 mg PO BID 05/22/20 [History Last Taken Unknown] acetaminophen 500 mg PO DAILY 05/29/20 [History Last Taken Unknown] oxaliplatin 100 mg IV BOLUS 08/10/20 [History Last Taken Unknown] Allergy/AdvReac Type Severity Reaction Status Date / Time lisinopril Allergy Severe Hives Verified 09/21/20 23:19 Family History Mother High cholesterol Hypertension CVA (cerebral vascular accident) Colon polyps Father High cholesterol Hypertension Heart failure Afib Surgical History History of vasectomy Social History Smoking Status: Never smoker ROS ROS ED Constitutional Constitutional ED: Reports fever(s); Denies chills Eyes Eyes: Denies change in vision ENT ENT ED: Denies sore throat Cardiovascular Cardiovascular: Denies chest pain Respiratory/Chest Respiratory/Chest: Reports cough; Denies dyspnea or sputum Gastrointestinal Gastrointestinal: Reports abdominal pain, diarrhea, nausea and vomiting Genitourinary Genitourinary ED: Denies dysuria Musculoskeletal Musculoskeletal: Denies back pain Integumentary Denies rash Neurologic Neurologic: Denies headache(s) or weakness Psychiatric Psychiatric: Denies anxiety or depression Endocrine Endocrinology: Denies polydipsia or polyuria Allergic/Immunologic Allergic/Immunologic ED: Denies urticaria EXAM Physical Exam Const Vital Signs: 09/21/20 23:13 09/21/20 23:55 09/22/20 00:18 Temperature 97.0 F L 99.3 F H Temperature Source Temporal Oral Pulse Rate 97 84 Respiratory Rate 18 17 Respiratory Pattern Normal Blood Pressure 134/85 H 115/80 Blood Pressure Mean 101 91 Pulse Ox 99 99 Oxygen Delivery Method Room Air Room Air 09/22/20 01:01 Temperature 99.7 F H Temperature Source Oral Pulse Rate 64 Respiratory Rate 18 Respiratory Pattern Blood Pressure 135/85 H Blood Pressure Mean 101 Pulse Ox 97 Oxygen Delivery Method Room Air Positive well nourished and well developed General Appearance ED: well developed HEENT Reports normocephalic and head/scalp atraumatic Eyes PERRL and EOMs intact bilaterally Neck supple Chest Wall inspection of chest normal and palpation of chest normal Resp normal respiratory effort and clear to auscultation bilaterally Cardio regular rate and regular rhythm GI Auscultation: hyperactive bowel sounds Palpation: soft and tender other (Mild diffuse tenderness to palpation.); Negative for guarding or rebound tenderness present Back/Spine no CVA tenderness Extremity normal to inspection Neuro oriented x3 and no sensory deficits noted Sensorium / Orientation: alert Motor Exam: strength 5/5 throughout Psych mental status grossly normal Skin no rashes or lesions noted MDM MDM MDM Narrative Medical decision making narrative: Labs and cultures were obtained. Urinalysis obtained. Covid swab and chest x-ray are obtained. Patient is given a liter IV fluid. Lab Data Attestation: I reviewed the patient's lab results. Labs: Laboratory Results - last 24 hr 09/21/20 09/21/20 09/21/20 23:45 23:45 23:45 WBC 4.6 RBC 4.20 L Hgb 13.0 Hct 36.0 L MCV 85.7 MCH 31.0 MCHC 36.1 H RDW Std Deviation 47.7 H RDW Coeff of Jennie 15.9 H Plt Count 232 MPV 9.8 Immature Gran % (Auto) 0.200 Neut % (Auto) 61.4 Lymph % (Auto) 6.9 L [place] % (Auto) 29.8 H Eos % (Auto) 1.1 Baso % (Auto) 0.6 Absolute Neuts (auto) 2.8 Absolute Lymphs (auto) 0.32 L Nucleated RBC % 0 Sodium 134 L Potassium 2.5 L* Chloride 101 Carbon Dioxide 23.0 Anion Gap 10 BUN 12 Creatinine 1.04 Estim Creat Clear Calc 82.87 Est GFR (MDRD) Af Amer 95 Est GFR (MDRD) Non-Af 79 BUN/Creatinine Ratio 11.5 Glucose 123 H Lactic Acid 1.4 Calcium 7.6 L Total Bilirubin 0.80 AST 35 ALT 39 Alkaline Phosphatase 65 Total Protein 5.3 L Albumin 2.5 L Globulin 2.8 Albumin/Globulin Ratio 0.9 Urine Color Urine Clarity Urine pH Ur Specific [place] Urine Protein Urine Glucose (UA) Urine Ketones Urine Occult Blood Urine Nitrite Urine Bilirubin Urine Urobilinogen Ur Leukocyte Esterase Urine RBC Urine WBC Ur Squamous Epith Cells Amorphous Sediment Urine Bacteria Fine Granular Casts Urine Mucus 09/22/20 00:00 WBC RBC Hgb Hct MCV MCH MCHC RDW Std Deviation RDW Coeff of Jennie Plt Count MPV Immature Gran % (Auto) Neut % (Auto) Lymph % (Auto) [place] % (Auto) Eos % (Auto) Baso % (Auto) Absolute Neuts (auto) Absolute Lymphs (auto) Nucleated RBC % Sodium Potassium Chloride Carbon Dioxide Anion Gap BUN Creatinine Estim Creat Clear Calc Est GFR (MDRD) Af Amer Est GFR (MDRD) Non-Af BUN/Creatinine Ratio Glucose Lactic Acid Calcium Total Bilirubin AST ALT Alkaline Phosphatase Total Protein Albumin Globulin Albumin/Globulin Ratio Urine Color Yellow Urine Clarity Clear Urine pH 6.0 Ur Specific [place] 1.020 Urine Protein 15 H Urine Glucose (UA) Normal Urine Ketones Negative Urine Occult Blood 10 H Urine Nitrite Negative Urine Bilirubin Negative Urine Urobilinogen Normal Ur Leukocyte Esterase Negative Urine RBC 0-5 SEEN Urine WBC 0-5 SEEN Ur Squamous Epith Cells 0 SEEN Amorphous Sediment RARE Urine Bacteria RARE Fine Granular Casts 0-5 SEEN Urine Mucus 0 SEEN Radiography Chest X-Ray - ED: 1 View, Read by ED Physician, Normal, Heart, Lungs and Mediastinum Diagnostic Testing: Radiology Impression Chest X-Ray 09/22/20 00:00 IMPRESSION: No acute cardiopulmonary disease. No significant interval change. Electronically Signed: Reyna Garcia MD at 0:30 EDT , Service support , EKG Initial EKG: Attestation: I personally reviewed and interpreted this EKG as follows: Interpretation: Sinus Rhythm (Sinus at 64 with right bundle branch block.) Treatment and Re-Evaluation Comments:: Patient's chest x-ray is unremarkable per my interpretation. Radiology interpretation is reviewed. Lab work does not indicate evidence of neutropenia at this time. Potassium is low at 2.5. Renal function is otherwise normal. Patient is ordered 40 mEq of IV potassium replacement. He is discussed with hospitalist for admission. We will add magnesium and phosphorus levels as well as enteric stool pathogens as it does not appear this was done previously with the stool studies. Discharge Plan Triage Chief Complaint: General Illness ED Provider: Mayela Pelayo Dx/Rx/DC Orders Clinical Impression: Hypokalemia Primary Care Provider: Ronnell Moss Disposition Disposition: Acute Care Hospital [facility]
[2020-09-21] MEDS: 0.9% Normal Saline 1,000 ML 999 ML IV (23:54)
[2020-09-21 23:55] LABS: Absolute Lymphocyte Count 0.32 X10^3/uL (0.83-4.51); Absolute Neutrophil Count 2.8 X10^3/uL (2.0-7.7); Basophil# 0.03 X10^3/uL; Basophil% 0.6 % (0-1); Eosinophil# 0.05 X10^3/uL; Eosinophils% 1.1 % (0-5); Lymphocyte # 0.32 X10^3/ul (0.83-4.51); Lymphocyte % 6.9 % (19-41); Mean Corp Hgb Conc 36.1 g/dL (32-36); Mean Corpuscular Volume 85.7 fL (80-94); Mean Platelet Vol. 9.8 fl (6.2-12.0); Monocyte# 1.38 X10^3/uL; Monocyte% 29.8 % (0-10); NRBC Flagged by Analyzer 0 % (0-5); Neutrophil # 2.84 X10^3/uL (2.7-7.7); Neutrophil % 61.4 % (47-70); POSITIVE DIFFERENTIAL YES; Platelet Count 232 K/mm3 (150-450); RBC Distribution Width CV 15.9 % (11.6-14.6); RBC Distribution Width SD 47.7 fl (35.1-43.9); White Blood Count 4.6 K/mm3 (4.4-11.0)
[2020-09-21 23:58] LABS: Differential Indicated SCAN CRITERIA MET
[2020-09-22] VITALS (13 sets, daily range): BP systolic 115–135; BP diastolic 76–85; PULSE 60–84; RESP 14–18; TEMP 36.2–37.6; O2SAT 91–99; BMI 30.9
--- NOTE | 2020-09-22 | RAD_ITS ---
STUDY: X-RAY CHEST REASON FOR EXAM: Male, 55 years old. fever, cough TECHNIQUE: Single AP portable view of the chest. COMPARISON: 05/09/2020 FINDINGS: Right internal jugular approach port in stable position. There are superimposed monitor leads. The lungs are clear and expanded. There is no demonstrated pleural abnormality. Normal size heart. Normal mediastinum and willa. Normal visualized pulmonary arteries. Normal visualized aortic arch and descending thoracic aorta. Obscured thoracic spine. Normal visualized ribs, clavicles, and shoulders. There is no demonstrated abnormality of the visualized soft tissue structures of the upper abdomen. RAD/Chest 1 View (Portable) IMPRESSION: No acute cardiopulmonary disease. No significant interval change. Electronically Signed: Reyna Garcia MD at 0:30 EDT , Service support ,
[2020-09-22 00:07] LABS: Mucous, Urine 0 SEEN /hpf (<or=2+); Squamous Epithelial Cells - UA 0 SEEN /hpf (0-5)
[2020-09-22 00:09] LABS: Color, Urine Yellow (Yellow); Glucose, Dipstick Normal (Normal); Ketone-Dipstick Negative (Negative); Leukocyte Esterase-Dipstick Negative /ul (Negative); Nitrite-Dipstick Negative (Negative); Occult Blood-Urine 10 /ul (Negative); Protein-Dipstick 15 mg/dl (Negative); Urine Bilirubin Dipstick Negative (Negative); Urine Clarity Clear (Clear); Urine Urobilinogen Normal (Normal)
[2020-09-22 00:14] LABS: Lactic Acid 1.4 mmol/L (0.4-1.9)
[2020-09-22 00:40] LABS: Amorphous Sediment RARE; Bacteria RARE /hpf (None Seen); Fine Granular Cast- Urine 0-5 SEEN /lpf (0-5); Red Blood Cells-Urine 0-5 SEEN /hpf (0-5); White Blood Cells 0-5 SEEN /hpf (0-5)
[2020-09-22 00:53] LABS: ALB/GLOB Ratio 0.9 RATIO (0.9-2.4); AST(SGOT) 35 U/L (15-37); Alanine Aminotransfer ALT/SGPT 39 U/L (16-61); Albumin, Serum 2.5 g/dL (3.2-5.0); Alkaline Phosphatase 65 U/L (45-117); Anion Gap 10 (5-15); BUN 12 mg/dL (7-18); BUN/Creat Ratio 11.5 RATIO (10-20); Calcium,Total 7.6 mg/dL (8.5-10.1); Chloride 101 mmol/L (98-107); Creatinine, Serum 1.04 mg/dL (0.70-1.30); EST Glomerular Filtration Rate 79 mL/min (>60); Est Glom Filt Rate - Afr Amer 95 mL/min (>60); Estimated Creatinine Clearance 82.87 ml/min; Globulin 2.8 g/dL (2.2-4.2); Glucose 123 mg/dL (74-106); Potassium 2.5 mmol/L (3.5-5.1); Protein, Total 5.3 g/dL (6.4-8.2); Sodium Level 134 mmol/L (136-145)
--- NOTE | 2020-09-22 00:53 | EKG12_ITS ---
Test Reason : ABNORMAL LABS Blood Pressure : / mmHG Vent. Rate : 064 BPM Atrial Rate : 064 BPM P-R Int : 198 ms QRS Dur : 176 ms QT Int : 520 ms P-R-T Axes : 062 -26 -14 degrees QTc Int : 536 ms Normal sinus rhythm Right bundle branch block T wave abnormality, consider lateral ischemia Inferior LA, age undetermined, cannot be excluded Abnormal ECG Confirmed by DAPHNEY WILKINSON, PRESTON ([id number]), international editorial producer BARTOLO COLLAZO ([id number]) on 09/26/2020 1:36:53 PM Referred By: MARY LOU Confirmed By:PRESTON SHELLEY MD
--- NOTE | 2020-09-22 01:03 | HP.PCM.HOS_ITS ---
HPI - General General Date of Admission: 09/22/20 Date of Service: 09/22/20 Chief Complaint: Diarrhea, abdominal pain, F/Cough, recent chemotherapy HPI Narrative The patient is a 55 y/o M w/ PMHx: Rectal adenocarcinoma with ongoing chemoth erapy following w/ Dr. Dang (last chemotherapy on 09/10/20), HTN who presents to the [facility] ED on 09/22/20 with history of ongoing loose stools, described as pudding like nearly every 2 hours since his last chemotherapy even with maximum usage of antidiarrheal regimen with notable abdominal diffuse cramping with evaluation outpatient with stool leuk +, negative c-diff and currently pending ova and parasite but given ongoing diffuse diarrhea patient presented for evaluation. Upon evaluation he also had onset of fever, mild dry cough as well as congestion. He has had his COVID vaccinations and has no recent ill contacts. Work-up in the ED included T 99.7, heart rate 66, BP 127/84, respiratory rate 1 8, 97% on room air, CBC with WC 4.6, hemoglobin 13, platelet 232 with lymphopenia, CMP with sodium 134, potassium 2.5, glucose 123, lactic acid 1.4, urinalysis with elevated specific gravity 1.020 otherwise no obvious evidence of UTI, chest x-ray with no acute cardiopulmonary findings. In the ED patient ministered potassium supplementation as well as IV fluids. [facility] Medical History (Updated 09/22/20 @ 02:[address] Sandy Vu MD) Abdominal pain Blood in stool Constipation Diarrhea Hemorrhoids Hypertension Hypokalemia Neutropenia Palmar plantar erythrodysaesthesia Skin cancer of nose Home Medications aspirin 81 mg PO DAILY 06/25/16 [History Last Taken Unknown] hydrochlorothiazide 25 mg PO DAILY 06/25/16 [History Last Taken Unknown] amlodipine 5 mg tablet 10 mg PO DAILY tab 04/16/20 [History Last Taken Unknown] magnesium oxide 500 mg PO DAILY 04/18/20 [History Last Taken Unknown] lidocaine-prilocaine 1 applicatio TP DAILY PRN PRN 30 Days #1 tube 05/14/20 [Rx Last Taken Unknown] ondansetron 8 mg PO Q8H PRN PRN 10 Days #30 tab.rapdis 05/14/20 [Rx Last Taken Unknown] capecitabine [Xeloda] 2,000 mg PO BID 05/22/20 [History Last Taken Unknown] acetaminophen 500 mg PO DAILY 05/29/20 [History Last Taken Unknown] oxaliplatin 100 mg IV BOLUS 08/10/20 [History Last Taken Unknown] Allergy/AdvReac Type Severity Reaction Status Date / Time lisinopril Allergy Severe Hives Verified 09/21/20 23:19 Family History Mother High cholesterol Hypertension CVA (cerebral vascular accident) Colon polyps Father High cholesterol Hypertension Heart failure Afib Surgical History (Updated 09/22/20 @ 02:[address] Sandy Vu MD) History of vasectomy unable to obtain (ADDITIONAL Surgery: Port placement.) Social History (Updated 09/22/20 @ 02:[address] Sandy Vu MD) household members: spouse and family Smoking Status: Never smoker alcohol intake: current alcohol intake frequency: holidays/special occasions only substance use type: does not use ROS ROS Narrative Admission Review of Systems: CONSTITUTIONAL: No weight loss, chills, + fever, weakness or fatigue. HEENT: + Congestion. Eyes: No visual loss, blurred vision, double vision or yellow sclerae. Ears, Nose, Throat: No hearing loss, sneezing, runny nose or sore throat. SKIN: No rash or itching, lesions, wounds. CARDIOVASCULAR: No chest pain, chest pressure or chest discomfort, palpitations, edema, orthopnea, syncopal events. RESPIRATORY: + Cough. No shortness of breath, sputum, wheezing, hemoptysis. GASTROINTESTINAL: + Abdominal cramping/pain, diarrhea. No anorexia, nausea, vomiting, melena, BRBPR. GENITOURINARY: No dysuria, frequency, urgency or retention. NEUROLOGICAL: No headache, dizziness, syncope, paralysis, ataxia, numbness or tingling in the extremities, focal weakness, change in bowel or bladder control, seizure. MUSCULOSKELETAL: No muscle, back pain, joint pain or stiffness. HEMATOLOGIC: + anemia, bleeding or bruising. LYMPHATICS: No enlarged nodes. No history of splenectomy. PSYCHIATRIC: No history of depression or anxiety. ENDOCRINOLOGIC: No reports of sweating, cold or heat intolerance. No polyuria or polydipsia. ALLERGIES: No history of asthma, hives, eczema or rhinitis. Vital Signs Vital Signs Vital Signs: 09/21/20 23:13 09/21/20 23:55 09/22/20 00:18 Temperature 97.0 F L 99.3 F H Temperature Source Temporal Oral Pulse Rate 97 84 Respiratory Rate 18 17 Respiratory Pattern Normal Blood Pressure 134/85 H 115/80 Blood Pressure Mean 101 91 Pulse Ox 99 99 Oxygen Delivery Method Room Air Room Air Weight Weight: 215 lb Body Mass Index (BMI) 30.8 Physical Exam Narrative Physical Examination: General: Awake, alert, oriented x 3 and cooperative, seated upright in the ED bed in no apparent distress. Skin: Normal color, normal turgor, no icterus, no cyanosis. HEENT: AT/NC, EOMI, PERRLA, MMM, no carotid bruits or JVD noted. Lungs: Diminished bases, moderate effort, no evidence of any distress, no rales, ronchi or wheezing. Heart: Regular rate and rhythm; no gallop, rub audible. Abdomen: Soft, generalized tenderness to palpation with no specific rebound or guarding, mildly distended, significantly hyperactive diffuse bowel sounds, no obvious HSM. Extremities: No cyanosis, clubbing, or edema. Neurological: Patient awake, alert, oriented as noted, cognitive function intact; pupils equally reactive to light and accommodation, cranial nerves II- XII grossly normal, moving all 4 extremities, no focal deficits, strength mildly global decreased. Psychiatric: Affect appears fatigued, otherwise normal, no acute evidence of depressive or anxiety feelings. Results Lab / Micro Data Result Diagrams: 09/21/20 23:45 09/21/20 23:45 Labs: Laboratory Results - last 24 hr 09/21/20 09/21/20 09/21/20 23:45 23:45 23:45 WBC 4.6 RBC 4.20 L Hgb 13.0 Hct 36.0 L MCV 85.7 MCH 31.0 MCHC 36.1 H RDW Std Deviation 47.7 H RDW Coeff of Jennie 15.9 H Plt Count 232 MPV 9.8 Immature Gran % (Auto) 0.200 Neut % (Auto) 61.4 Lymph % (Auto) 6.9 L [place] % (Auto) 29.8 H Eos % (Auto) 1.1 Baso % (Auto) 0.6 Absolute Neuts (auto) 2.8 Absolute Lymphs (auto) 0.32 L Nucleated RBC % 0 Sodium 134 L Potassium 2.5 L* Chloride 101 Carbon Dioxide 23.0 Anion Gap 10 BUN 12 Creatinine 1.04 Estim Creat Clear Calc 82.87 Est GFR (MDRD) Af Amer 95 Est GFR (MDRD) Non-Af 79 BUN/Creatinine Ratio 11.5 Glucose 123 H Lactic Acid 1.4 Calcium 7.6 L Total Bilirubin 0.80 AST 35 ALT 39 Alkaline Phosphatase 65 Total Protein 5.3 L Albumin 2.5 L Globulin 2.8 Albumin/Globulin Ratio 0.9 Urine Color Urine Clarity Urine pH Ur Specific [place] Urine Protein Urine Glucose (UA) Urine Ketones Urine Occult Blood Urine Nitrite Urine Bilirubin Urine Urobilinogen Ur Leukocyte Esterase Urine RBC Urine WBC Ur Squamous Epith Cells Amorphous Sediment Urine Bacteria Fine Granular Casts Urine Mucus 09/22/20 00:00 WBC RBC Hgb Hct MCV MCH MCHC RDW Std Deviation RDW Coeff of Jennie Plt Count MPV Immature Gran % (Auto) Neut % (Auto) Lymph % (Auto) [place] % (Auto) Eos % (Auto) Baso % (Auto) Absolute Neuts (auto) Absolute Lymphs (auto) Nucleated RBC % Sodium Potassium Chloride Carbon Dioxide Anion Gap BUN Creatinine Estim Creat Clear Calc Est GFR (MDRD) Af Amer Est GFR (MDRD) Non-Af BUN/Creatinine Ratio Glucose Lactic Acid Calcium Total Bilirubin AST ALT Alkaline Phosphatase Total Protein Albumin Globulin Albumin/Globulin Ratio Urine Color Yellow Urine Clarity Clear Urine pH 6.0 Ur Specific [place] 1.020 Urine Protein 15 H Urine Glucose (UA) Normal Urine Ketones Negative Urine Occult Blood 10 H Urine Nitrite Negative Urine Bilirubin Negative Urine Urobilinogen Normal Ur Leukocyte Esterase Negative Urine RBC 0-5 SEEN Urine WBC 0-5 SEEN Ur Squamous Epith Cells 0 SEEN Amorphous Sediment RARE Urine Bacteria RARE Fine Granular Casts 0-5 SEEN Urine Mucus 0 SEEN Micro: Microbiology 09/22/20 00:24 SARS-CoV-2 Antigen (Rapid) - Final Mucosa - Nose Radiology Impression Chest X-Ray 09/22/20 00:00 IMPRESSION: No acute cardiopulmonary disease. No significant interval change. Electronically Signed: Reyna Garcia MD at 0:30 EDT , Service support , Assessment & Plan Assessment/Plan (1) Diarrhea: QUALIFIERS: Diarrhea type: unspecified type Qualified Code(s): R19.7 - Diarrhea, unspecified (2) Abdominal pain: QUALIFIERS: Abdominal location: generalized Qualified Code(s): R1 0.84 - Generalized abdominal pain (3) Hypokalemia: PLAN: The patient is a 55 y/o M w/ PMHx: Rectal adenocarcinoma with ongoing chemotherapy following w/ Dr. Dang (last chemotherapy on 09/10/20), HTN who presents to the [facility] ED on 09/22/20 with history of ongoing loose stools, described as pudding like nearly every 2 hours since his last chemotherapy even with maximum usage of antidiarrheal regimen with notable abdominal diffuse cramping with evaluation outpatient with stool leuk +, negative c-diff and currently pending ova and parasite but given ongoing diffuse diarrhea patient presented for evaluation. 1. Diarrhea, Abdominal Cramping/Pain, Cough, Congestion secondary to Possible Acute Viral Syndrome in the setting of chemotherapy: Will admit to PCU given notable electrolyte disturbances, continue hydration, recent negative c-diff, recent pending O+P, will obtain enteric pathogens, will obtain CT A/P with contrast oral and IV given history with repeat AM CBC. Will not start antibiotics at this time given unclear source pending stool studies as may be viral with no marked WBC elevation or L shift noted. Anti-emetics, pain regimen PRN. CXR without acute findings as noted, requested respiratory viral panel. 2. Hypokalemia: Admission K+ 2.5, magnesium level requested, supplementation IV given in the ED, repeat level in AM. 3. Rectal adenocarcinoma: CT scan and colonoscopy demonstrated biopsy-proven rectal cancer at 12 cm. Patient with ongoing chemotherapy, following with Dr. Dang, will obtain magnesium and phosphorus levels and replete if necessary. Discussed plan follow-up with Dr. Dang and patient and family members would prefer to follow-up with them outpatient. 4. Hypertension: Continue home regimen including Norvasc, holding lisinopril given notable hypokalemia, PRN hydralazine. 5. DVT prophylaxis: SCDs, Lovenox. Charges/Coding Visit Charges OBSV E&M: 82315 Initial observation care L3
[2020-09-22 01:18] LABS: Magnesium 1.7 mg/dL (1.6-2.6); Phosphorus 3.1 mg/dL (2.5-4.9)
--- NOTE | 2020-09-22 01:54 | CT_ITS ---
HISTORY: Abdominal pain, diarrhea, rectal cancer -- With IV and oral contrast EXAMINATION: CT Abdomen And Pelvis W/ Contrast Injection TECHNIQUE: Helically acquired images were obtained of the abdomen and pelvis following IV, oral and rectal contrast. A radiation dose optimization technique was used for this scan. IV Contrast dosage and agent: 100 mL [id number] Enteric contrast: Yes COMPARISON: Contrast-enhanced CT abdomen and pelvis from 08/10/20 FINDINGS: LOWER CHEST: Minimal basilar atelectasis. Cephalic approach central line tip at right atrium. Heart size within normal limits. LIVER: Mild fatty infiltration with no concerning lesion. GALLBLADDER AND BILIARY TREE: No calcified gallstones identified. There is no pericholecystic edema. No significant biliary ductal dilation. KIDNEYS AND URETERS: Normal renal size. No concerning lesion. Tiny 2 mm stone remains within interpolar left kidney. No ureteral stones identified. There is no perinephric inflammation or hydronephrosis. ADRENAL GLANDS: Non-enlarged. SPLEEN: Normal size without discrete mass. PANCREAS: No discrete mass or peripancreatic inflammation. BOWEL: Normal appendix inferior to cecum within right lower quadrant. No bowel obstruction. Several thickened loops of distal small bowel again noted within lower abdomen. There is also mild thickening of rectum and sigmoid colon. No bulky rectal mass appreciated. LYMPH NODES: No enlarged mesenteric or retroperitoneal lymph nodes. PERITONEUM: No abscess, free air or significant free fluid. VESSELS: Minimal atherosclerosis. URINARY BLADDER: Underdistended urinary bladder with possible mild circumferential wall thickening. REPRODUCTIVE ORGANS: Bilateral tubal ligation clips. ABDOMINAL WALL: No acute findings or significant hernia defect. BONES: Intact with no suspicious osseous lesion. CT/Abdomen/Pelvis WITH Contrast IMPRESSION: 1. Thickened distal large bowel and distal small bowel. Possible nonspecific enterocolitis, with or without tumor involvement. 2. Tiny nonobstructing left renal stone. 3. Mild hepatic steatosis. 4. Mild urinary bladder wall thickening versus underdistention. Correlate clinically and with urinalysis. Individualized dose optimization techniques were used for this CT. at 0739 Reported and signed by: Flavio Glover MD Electronically Signed: Flavio Glover MD at 7:37 EDT Tel , Service support ,
[2020-09-22] MEDS: Ondansetron 4 MG/2 ML Vial IV (02:39)
[2020-09-22] MEDS: 0.9% Normal Saline 1,000 ML 125 ML IV ×3 (03:15→18:14)
[2020-09-22 03:47] LABS: Lipase 406 U/L (73-393)
[2020-09-22 08:08] LABS: Absolute Lymphocyte Count 0.28 X10^3/uL (0.83-4.51); Absolute Neutrophil Count 1.9 X10^3/uL (2.0-7.7); Basophil# 0.02 X10^3/uL; Basophil% 0.6 % (0-1); Eosinophils% 2.9 % (0-5); Hematocrit 31.6 % (40-54); Hemoglobin 11.3 g/dL (13.0-16.5); Lymphocyte # 0.28 X10^3/ul (0.83-4.51); Mean Corp Hgb Conc 35.8 g/dL (32-36); Mean Corpuscular Volume 86.8 fL (80-94); Mean Platelet Vol. 10.4 fl (6.2-12.0); Monocyte# 1.16 X10^3/uL; Monocyte% 33.3 % (0-10); NRBC Flagged by Analyzer 0 % (0-5); Neutrophil # 1.91 X10^3/uL (2.7-7.7); Neutrophil % 54.9 % (47-70); POSITIVE DIFFERENTIAL YES; Platelet Count 193 K/mm3 (150-450); RBC Distribution Width CV 15.8 % (11.6-14.6); RBC Distribution Width SD 48.3 fl (35.1-43.9); Red Blood Count 3.64 M/mm3 (4.6-6.2); White Blood Count 3.5 K/mm3 (4.4-11.0)
[2020-09-22 08:13] LABS: Differential Indicated SCAN CRITERIA MET
[2020-09-22 08:39] LABS: AST(SGOT) 29 U/L (15-37); Alanine Aminotransfer ALT/SGPT 34 U/L (16-61); Albumin, Serum 2.1 g/dL (3.2-5.0); Alkaline Phosphatase 56 U/L (45-117); Anion Gap 8 (5-15); BUN 10 mg/dL (7-18); BUN/Creat Ratio 11.4 RATIO (10-20); Calcium,Total 7.1 mg/dL (8.5-10.1); Chloride 104 mmol/L (98-107); Creatinine, Serum 0.88 mg/dL (0.70-1.30); EST Glomerular Filtration Rate 96 mL/min (>60); Est Glom Filt Rate - Afr Amer 116 mL/min (>60); Estimated Creatinine Clearance 97.93 ml/min; Globulin 2.2 g/dL (2.2-4.2); Glucose 107 mg/dL (74-106); Potassium 2.6 mmol/L (3.5-5.1); Protein, Total 4.3 g/dL (6.4-8.2); Sodium Level 136 mmol/L (136-145)
[2020-09-22] MEDS: Famotidine 20 MG Tablet PO ×2 (10:08→23:04)
[2020-09-22] MEDS: Aspirin 81 MG TAB.CHEW PO (10:09)
[2020-09-22] MEDS: amLODIPine 10 MG Tablet PO (10:09)
[2020-09-22] MEDS: Enoxaparin 40 MG/0.4 ML Syringe SC (10:09)
[2020-09-22] MEDS: Potassium Chloride 10mEq/100mL 10 MEQ/100 ML IV.SOLN. 100 MEQ IV BOLUS ×4 (10:14→13:21)
--- NOTE | 2020-09-22 12:33 | CASEMGMT ---
YAHIR GONCALVES assessment: Face to Face with patient for initial transition planning/care coordination assessment. RN IVANNA introduced self and role at [facility], pt voices understanding and consents to assessment. Pt is sitting up in bed in no distress. Pt is A/Ox4 and answers all questions appropriately. Care providers, pharmacy, and demographics verified. Presentation: Pt received chemo 09/10, today c/o cough, fever, N/V/D Admitting dx: Hypokalemia, diarrhea PCP: Ajay Specialists: [place], onc Preferred Pharmacy: [facility] [place] Insurance: [employer] Prescription Benefit: [employer] Living Will/HPOA: Pt states does not have LW/HPOA and is aware that can be completed at [facility] during oncology treatments/appt's, voices understanding. LNOK: Daxa Beegle, Living Arrangements: Pt states lives with in 1 story home and states no concerns at home. Pt states is independent with ADL's. Transportation: Pt states drives self and states no transportation concerns. DME/HHC: Pt states no current DME and no need for any further DME. Pt states no hx of SNF or HHC in the past. Pt states no concerns with going home at time of discharge. 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 Pt states does not smoke cigarettes but does occasionally drink ETOH. Pt states no further concerns/needs. CM to follow for any further discharge planning/needs. Advised pt to ask for CM if any further questions/concerns/needs arise, voices understanding. Pt Goal: Home Plan[place] YAHIR GONCALVES
[2020-09-22] MEDS: Diphenoxylate/Atrop 1 Tablet 2 TABLET PO ×3 (13:24→23:04)
--- NOTE | 2020-09-22 18:04 | PN.HOSP_ITS ---
Subjective Subjective Patient was seen and examined today, he is still having liquid diarrhea, I talked with his who is in the room at the time my examination, I also talked with oncology today who stated that his oral chemotherapeutic medication was probably causing the diarrhea. He is no longer taking this medication. It was recommended that the patient be placed on Imodium-he had been taken Imodium at home so I placed him on Lomotil and also a low-dose of Bentyl. Patient's potassium was also low, he received supplemental potassium today and I will recheck his BMP in the morning. Objective Data Objective Data Vital Signs: Vital Signs Temp Pulse Resp BP Pulse Ox 98.1 F 67 14 121/78 H 92 09/22/20 16:18 09/22/20 16:18 09/22/20 16:18 09/22/20 16:18 09/22/20 16:18 Oxygen Delivery Method Room Air Weight: 97.6 kg Body Mass Index (BMI) 30.9 Intake & Output: Intake and Output for Last 24 Hours 09/20/20 09/21/20 09/22/20 23:59 23:59 23:59 Intake Total 2805.00 / 2805.00 Balance 2805.00 / 2805.00 Lab / Micro Data Result Diagrams: 09/22/20 07:55 09/22/20 07:55 Labs: Laboratory Results - last 24 hr 09/21/20 09/21/20 09/21/20 23:45 23:45 23:45 WBC 4.6 RBC 4.20 L Hgb 13.0 Hct 36.0 L MCV 85.7 MCH 31.0 MCHC 36.1 H RDW Std Deviation 47.7 H RDW Coeff of Jennie 15.9 H Plt Count 232 MPV 9.8 Immature Gran % (Auto) 0.200 Neut % (Auto) 61.4 Lymph % (Auto) 6.9 L [place] % (Auto) 29.8 H Eos % (Auto) 1.1 Baso % (Auto) 0.6 Absolute Neuts (auto) 2.8 Absolute Lymphs (auto) 0.32 L Nucleated RBC % [address] Review Sodium 134 L Potassium 2.5 L* Chloride 101 Carbon Dioxide 23.0 Anion Gap 10 BUN 12 Creatinine 1.04 Estim Creat Clear Calc 82.87 Est GFR (MDRD) Af Amer 95 Est GFR (MDRD) Non-Af 79 BUN/Creatinine Ratio 11.5 Glucose 123 H Lactic Acid 1.4 Calcium 7.6 L Phosphorus Magnesium Total Bilirubin 0.80 AST 35 ALT 39 Alkaline Phosphatase 65 Total Protein 5.3 L Albumin 2.5 L Globulin 2.8 Albumin/Globulin Ratio 0.9 Lipase Urine Color Urine Clarity Urine pH Ur Specific [place] Urine Protein Urine Glucose (UA) Urine Ketones Urine Occult Blood Urine Nitrite Urine Bilirubin Urine Urobilinogen Ur Leukocyte Esterase Urine RBC Urine WBC Ur Squamous Epith Cells Amorphous Sediment Urine Bacteria Fine Granular Casts Urine Mucus 09/21/20 09/22/20 09/22/20 23:45 00:00 00:00 WBC RBC Hgb Hct MCV MCH MCHC RDW Std Deviation RDW Coeff of Jennie Plt Count MPV Immature Gran % (Auto) Neut % (Auto) Lymph % (Auto) [place] % (Auto) Eos % (Auto) Baso % (Auto) Absolute Neuts (auto) Absolute Lymphs (auto) Nucleated RBC % Diff Path Review Sodium Potassium Chloride Carbon Dioxide Anion Gap BUN Creatinine Estim Creat Clear Calc Est GFR (MDRD) Af Amer Est GFR (MDRD) Non-Af BUN/Creatinine Ratio Glucose Lactic Acid Calcium Phosphorus 3.1 Magnesium 1.7 Total Bilirubin AST ALT Alkaline Phosphatase Total Protein Albumin Globulin Albumin/Globulin Ratio Lipase 406 H Urine Color Yellow Urine Clarity Clear Urine pH 6.0 Ur Specific [place] 1.020 Urine Protein 15 H Urine Glucose (UA) Normal Urine Ketones Negative Urine Occult Blood 10 H Urine Nitrite Negative Urine Bilirubin Negative Urine Urobilinogen Normal Ur Leukocyte Esterase Negative Urine RBC 0-5 SEEN Urine WBC 0-5 SEEN Ur Squamous Epith Cells 0 SEEN Amorphous Sediment RARE Urine Bacteria RARE Fine Granular Casts 0-5 SEEN Urine Mucus 0 SEEN 09/22/20 09/22/20 07:55 07:55 WBC 3.5 L RBC 3.64 L Hgb 11.3 L Hct 31.6 L MCV 86.8 MCH 31.0 MCHC 35.8 RDW Std Deviation 48.3 H RDW Coeff of Jennie 15.8 H Plt Count 193 MPV 10.4 Immature Gran % (Auto) 0.300 Neut % (Auto) 54.9 Lymph % (Auto) 8.0 L [place] % (Auto) 33.3 H Eos % (Auto) 2.9 Baso % (Auto) 0.6 Absolute Neuts (auto) 1.9 L Absolute Lymphs (auto) 0.28 L Nucleated RBC % 0 [address] Review May foll Sodium 136 Potassium 2.6 L* Chloride 104 Carbon Dioxide 24.0 Anion Gap 8 BUN 10 Creatinine 0.88 Estim Creat Clear Calc 97.93 Est GFR (MDRD) Af Amer 116 Est GFR (MDRD) Non-Af 96 BUN/Creatinine Ratio 11.4 Glucose 107 H Lactic Acid Calcium 7.1 L Phosphorus Magnesium Total Bilirubin 0.80 AST 29 ALT 34 Alkaline Phosphatase 56 Total Protein 4.3 L Albumin 2.1 L Globulin 2.2 Albumin/Globulin Ratio 1.0 Lipase Urine Color Urine Clarity Urine pH Ur Specific [place] Urine Protein Urine Glucose (UA) Urine Ketones Urine Occult Blood Urine Nitrite Urine Bilirubin Urine Urobilinogen Ur Leukocyte Esterase Urine RBC Urine WBC Ur Squamous Epith Cells Amorphous Sediment Urine Bacteria Fine Granular Casts Urine Mucus Micro: Microbiology 09/22/20 07:37 Mucosa - Nasopharyngeal Respiratory Panel (PCR) - Final 09/22/20 Unknown Stool Enteric Bacteriology - Final 09/22/20 00:24 Mucosa - Nose SARS-CoV-2 Antigen (Rapid) - Final Radiography Diagnostic Testing: Radiology Impression Chest X-Ray 09/22/20 00:00 IMPRESSION: No acute cardiopulmonary disease. No significant interval change. Electronically Signed: Reyna Garcia MD at 0:30 EDT , Service support , Abdomen/Pelvis CT 09/22/20 01:54 IMPRESSION: 1. Thickened distal large bowel and distal small bowel. Possible nonspecific enterocolitis, with or without tumor involvement. 2. Tiny nonobstructing left renal stone. 3. Mild hepatic steatosis. 4. Mild urinary bladder wall thickening versus underdistention. Correlate clinically and with urinalysis. Individualized dose optimization techniques were used for this CT. at 0739 Reported and signed by: Flavio Glover MD Electronically Signed: Flavio Glover MD at 7:37 EDT Tel , Service support , Physical Exam Const alert, oriented x3, no apparent distress and average body habitus HEENT head/scalp atraumatic and moist oral mucous membranes Head and Scalp: normocephalic Eyes PERRL, EOMs intact bilaterally and conjunctivae normal Neck no lymphadenopathy, supple and no JVD Resp normal respiratory effort, no retractions, no use of accessory muscles and clear to auscultation bilaterally Cardio regular rate, regular rhythm, S1 normal heart sound, S2 normal heart sound, no gallops and no clicks GI normal to inspection, nondistended, normoactive bowel sounds, soft to palpation, non-tender and non-distended Extremity normal to inspection and full ROM Neuro oriented x3, CN's II-XII intact bilaterally and no focal motor deficits Sensorium / Orientation: awake and alert Speech: speech normal Psych affect normal Assessment & Plan Assessment/Plan (1) Hypokalemia: PLAN: 1. Hypokalemia-secondary to diarrhea associated with chemotherapy- patient will receive potassium supplementation IV, BMP will be rechecked tomorrow #2 diarrhea-probably secondary to chemotherapy-patient will be given Lomotil and Bentyl #3 rectal carcinoma #4 leukopenia-secondary to chemotherapy #5 essential hypertension Charges/Coding Visit Charges Inpatient E&M: 33162 Init Hosp L3
[2020-09-22] MEDS: Dicyclomine 10 MG Capsule PO ×2 (18:12→23:04)
[2020-09-23] VITALS (9 sets, daily range): BP systolic 113–126; BP diastolic 61–82; PULSE 60–71; RESP 14–18; TEMP 36.7–37.3; O2SAT 92–97; BMI 30.9
[2020-09-23] MEDS: 0.9% Normal Saline 1,000 ML 125 ML IV ×3 (01:56→17:34)
[2020-09-23] MEDS: 0.9% Saline Lock 10 ML Syringe IV (04:57)
[2020-09-23 05:06] LABS: Absolute Lymphocyte Count 0.29 X10^3/uL (0.83-4.51); Absolute Neutrophil Count 1.3 X10^3/uL (2.0-7.7); Basophil# 0.02 X10^3/uL; Basophil% 0.7 % (0-1); Eosinophil# 0.14 X10^3/uL; Eosinophils% 5.2 % (0-5); Hematocrit 29.6 % (40-54); Hemoglobin 10.6 g/dL (13.0-16.5); Lymphocyte # 0.29 X10^3/ul (0.83-4.51); Lymphocyte % 10.8 % (19-41); Mean Corp Hgb Conc 35.8 g/dL (32-36); Mean Corpuscular Hgb 31.5 pg (27.0-32.0); Mean Corpuscular Volume 87.8 fL (80-94); Mean Platelet Vol. 8.9 fl (6.2-12.0); Monocyte# 0.89 X10^3/uL; Monocyte% 33.1 % (0-10); NRBC Flagged by Analyzer 0.7 % (0-5); Neutrophil # 1.32 X10^3/uL (2.7-7.7); Neutrophil % 49.1 % (47-70); POSITIVE DIFFERENTIAL YES; POSITIVE MORPHOLOGY YES; Platelet Count 190 K/mm3 (150-450); RBC Distribution Width CV 16.1 % (11.6-14.6); RBC Distribution Width SD 49.5 fl (35.1-43.9); Red Blood Count 3.37 M/mm3 (4.6-6.2); White Blood Count 2.7 K/mm3 (4.4-11.0)
[2020-09-23 05:15] LABS: Differential Indicated SCAN CRITERIA MET
[2020-09-23 05:33] LABS: ALB/GLOB Ratio 0.9 RATIO (0.9-2.4); AST(SGOT) 24 U/L (15-37); Alanine Aminotransfer ALT/SGPT 28 U/L (16-61); Albumin, Serum 1.8 g/dL (3.2-5.0); Alkaline Phosphatase 52 U/L (45-117); Anion Gap 7 (5-15); BUN 9 mg/dL (7-18); BUN/Creat Ratio 10.1 RATIO (10-20); Calcium,Total 6.8 mg/dL (8.5-10.1); Chloride 105 mmol/L (98-107); Creatinine, Serum 0.89 mg/dL (0.70-1.30); EST Glomerular Filtration Rate 94 mL/min (>60); Est Glom Filt Rate - Afr Amer 114 mL/min (>60); Estimated Creatinine Clearance 96.83 ml/min; Globulin 2.1 g/dL (2.2-4.2); Glucose 106 mg/dL (74-106); Potassium 2.6 mmol/L (3.5-5.1); Protein, Total 3.9 g/dL (6.4-8.2); Sodium Level 137 mmol/L (136-145)
[2020-09-23 05:37] LABS: Atypical Lymphocyte 1+ %
[2020-09-23] MEDS: Potassium Chloride 10mEq/100mL 10 MEQ/100 ML IV.SOLN. 100 MEQ IV BOLUS ×2 (06:33→07:38)
[2020-09-23] MEDS: Potassium Chloride Oral Tablet 20 MEQ 40 MEQ PO (06:34)
[2020-09-23] MEDS: Dicyclomine 10 MG Capsule PO (06:34)
[2020-09-23] MEDS: Acetaminophen 325 MG Tablet 650 MG PO ×3 (08:10→22:36)
[2020-09-23] MEDS: Famotidine 20 MG Tablet PO ×2 (09:28→22:37)
[2020-09-23] MEDS: Aspirin 81 MG TAB.CHEW PO (09:29)
[2020-09-23] MEDS: amLODIPine 10 MG Tablet PO (09:29)
[2020-09-23] MEDS: Diphenoxylate/Atrop 1 Tablet 2 TABLET PO ×4 (09:33→22:39)
--- NOTE | 2020-09-23 10:55 | EX.NTREPO ---
Medical Nutrition Therapy - History Nutrition Services has been consulted to:: Manage nutrient details of diet order Current diet/nutrition support order:: regular. ensure enlive 120mL 4x/day - Anthropometric Measurements Height:: 5 ft 10 in Weight:: 97.6 kg Body Mass Index (BMI):: 30.9 - Relevant Labs Relevant Labs:: WBC 2.7 K/mm3 (4.4-11.0) L 09/23/20 04:55 RBC 3.37 M/mm3 (4.6-6.2) L 09/23/20 04:55 Hgb 10.6 g/dL (13.0-16.5) L 09/23/20 04:55 Hct 29.6 % (40-54) L 09/23/20 04:55 MCHC 36.1 g/dL (32-36) H 09/21/20 23:45 RDW Std Deviation 49.5 fl (35.1-43.9) H 09/23/20 04:55 RDW Coeff of Jennie 16.1 % (11.6-14.6) H 09/23/20 04:55 Immature Gran % (Auto) 1.100 % (0.0-0.9) H 09/23/20 04:55 Lymph % (Auto) 10.8 % (19-41) L 09/23/20 04:55 [place] % (Auto) 33.1 % (0-10) H 09/23/20 04:55 Eos % (Auto) 5.2 % (0-5) H 09/23/20 04:55 Absolute Neuts (auto) 1.3 X10^3/uL (2.0-7.7) L 09/23/20 04:55 Absolute Lymphs (auto) 0.29 X10^3/uL (0.83-4.51) L 09/23/20 04:55 Sodium 134 mmol/L (136-145) L 09/21/20 23:45 Potassium 2.6 mmol/L (3.5-5.1) L* 09/23/20 04:55 Glucose 107 mg/dL (74-106) H 09/22/20 07:55 Calcium 6.8 mg/dL (8.5-10.1) L 09/23/20 04:55 Total Protein 3.9 g/dL (6.4-8.2) L 09/23/20 04:55 Albumin 1.8 g/dL (3.2-5.0) L 09/23/20 04:55 Globulin 2.1 g/dL (2.2-4.2) L 09/23/20 04:55 Lipase 406 U/L (73-393) H 09/22/20 00:00 - Assessment Food and Nutrient Intake: Pt w/ minimal PO intake since admission. States he had bites of toast this AM. Pt reports decreased appetite/limited PO intake since last chemotherapy treatment on 09/10/20. Reports unintentional wt loss over past ~2 weeks. States UBW ~215# and notes that wt was down to 210# at home- 5#/2.3% wt loss x 2 weeks is significant for acute malnutrition. - Nutrition Diagnosis: Intake Problem Inadequate Oral Intake Intake Problem - Etiology: related to decreased appetite and diarrhea after chemotherapy Intake Problem - Signs/Symptoms: as evidenced by estimated PO intake meeting <50% of nutritional needs x 2 weeks Status: Active Problem - Nutrition Diagnosis: Clinical Problem Acute Disease or Injury Related Malnutrition Clinical Problem - Etiology: severe, acute malnutrition r/t inadequate energy intake w/ decreased appetite and diarrhea after chemotherapy Clinical Problem - Signs/Symptoms: as evidenced by estimated PO intake meeting <50% of nutritional needs x 2 weeks, unintentional wt loss of 5#/2.3% x 2 weeks Status: Active Problem - Protein Calorie Malnutrition Evidence of Malnutrition Exists: Yes Severe Protein Calorie Malnutrition:: Acute Illness/Injury - Nutrition Intervention Nutrition Prescription: 9002-7155 calories/day (RMR x 1.2-1.3). 97-116 g protein/day (1-1.2 gm/kg). 2910mL fluid/day (30mL/kg) - Food / Nutrient Delivery Interventions Summary of nutrition intervention:: Provide oral nutrition supplement Nutrition support ordered as / adjusted to:: Continue regular diet as tolerated; will switch ONS from Ensure Enlive to Ensure Clear per pt preference. - MNT Monitoring Active Nutrition Patient: Yes Nutrition Status: Requires Follow Up 3-5 Days
--- NOTE | 2020-09-23 11:34 | PN.HOSP_ITS ---
Subjective Subjective Patient was seen and examined today, his potassium is still low, I wrote for oral supplementation today. Patient is still having diarrhea, he has had 4 episodes this morning which were liquid. I have changed his Lomotil to every 4 hours and placed him on an increased dose of Bentyl. Objective Data Objective Data Vital Signs: Vital Signs Temp Pulse Resp BP Pulse Ox 98.1 F 61 16 126/82 H 96 09/23/20 09:21 09/23/20 09:21 09/23/20 09:21 09/23/20 09:21 09/23/20 09:21 Oxygen Delivery Method Room Air Weight: 97.6 kg Body Mass Index (BMI) 30.9 Intake & Output: Intake and Output for Last 24 Hours 09/21/20 09/22/20 09/23/20 23:59 23:59 23:59 Intake Total 3886.25 / 3886.25 2218.75 / 2218.75 Balance 3886.25 / 3886.25 2218.75 / 2218.75 Lab / Micro Data Result Diagrams: 09/23/20 04:55 09/23/20 04:55 Labs: Laboratory Results - last 24 hr 09/23/20 09/23/20 04:55 04:55 WBC 2.7 L RBC 3.37 L Hgb 10.6 L Hct 29.6 L MCV 87.8 MCH 31.5 MCHC 35.8 RDW Std Deviation 49.5 H RDW Coeff of Jennie 16.1 H Plt Count 190 MPV 8.9 Immature Gran % (Auto) 1.100 H Neut % (Auto) 49.1 Lymph % (Auto) 10.8 L [place] % (Auto) 33.1 H Eos % (Auto) 5.2 H Baso % (Auto) 0.7 Absolute Neuts (auto) 1.3 L Absolute Lymphs (auto) 0.29 L Nucleated RBC % 0.7 Diff Path Review May foll Atypical Lymphocytes 1+ Sodium 137 Potassium 2.6 L* Chloride 105 Carbon Dioxide 25.0 Anion Gap 7 BUN 9 Creatinine 0.89 Estim Creat Clear Calc 96.83 Est GFR (MDRD) Af Amer 114 Est GFR (MDRD) Non-Af 94 BUN/Creatinine Ratio 10.1 Glucose 106 Calcium 6.8 L Total Bilirubin 0.60 AST 24 ALT 28 Alkaline Phosphatase 52 Total Protein 3.9 L Albumin 1.8 L Globulin 2.1 L Albumin/Globulin Ratio 0.9 Micro: Microbiology 09/22/20 00:00 Urine, Clean Catch Urine Culture - Preliminary Culture exhibits no growth. 09/22/20 07:37 Mucosa - Nasopharyngeal Respiratory Panel (PCR) - Final 09/22/20 Unknown Stool Enteric Bacteriology - Final 09/22/20 00:24 Mucosa - Nose SARS-CoV-2 Antigen (Rapid) - Final Physical Exam Const alert, oriented x3, no apparent distress and average body habitus Exam Limitations: no limitations HEENT head/scalp atraumatic, moist oral mucous membranes and oropharynx normal Head and Scalp: normocephalic Eyes PERRL and EOMs intact bilaterally Neck no lymphadenopathy and no JVD Resp normal respiratory effort, no retractions, no use of accessory muscles and clear to auscultation bilaterally Cardio regular rate, regular rhythm, S1 normal heart sound, S2 normal heart sound and no gallops GI normal to inspection, nondistended, normoactive bowel sounds, soft to palpation and non-tender Extremity normal to inspection Neuro oriented x3, CN's II-XII intact bilaterally and no sensory deficits noted Sensorium / Orientation: awake and alert Psych affect normal Assessment & Plan Assessment/Plan (1) Hypokalemia: PLAN: 1. Hypokalemia secondary to diarrhea from chemotherapy-patient will be given supplemental potassium orally today #2 chemotherapy associated diarrhea-patient will remain on IV fluids #3 rectal adenocarcinoma #4 leukopenia secondary to chemotherapy for rectal adenocarcinoma #5 essential hypertension Charges/Coding Visit Charges Inpatient E&M: 28881 Subs Hosp L2
[2020-09-23] MEDS: Potassium Chloride Oral Tablet 20 MEQ 60 MEQ PO (11:39)
[2020-09-23] MEDS: Ensure Clear 120 ML Liquid PO ×2 (11:41→22:36)
[2020-09-23] MEDS: Dicyclomine 10 MG Capsule 20 MG PO ×3 (11:44→23:11)
[2020-09-23 13:46] LABS: Anion Gap 8 (5-15); BUN 8 mg/dL (7-18); BUN/Creat Ratio 10.3 RATIO (10-20); Calcium,Total 6.9 mg/dL (8.5-10.1); Chloride 107 mmol/L (98-107); Creatinine, Serum 0.78 mg/dL (0.70-1.30); EST Glomerular Filtration Rate 110 mL/min (>60); Est Glom Filt Rate - Afr Amer 133 mL/min (>60); Estimated Creatinine Clearance 110.49 ml/min; Glucose 102 mg/dL (74-106); Potassium 2.7 mmol/L (3.5-5.1); Sodium Level 137 mmol/L (136-145)
[2020-09-23 21:16] LABS: Anion Gap 8 (5-15); BUN 9 mg/dL (7-18); BUN/Creat Ratio 11.5 RATIO (10-20); Calcium,Total 6.8 mg/dL (8.5-10.1); Chloride 108 mmol/L (98-107); Creatinine, Serum 0.78 mg/dL (0.70-1.30); EST Glomerular Filtration Rate 110 mL/min (>60); Est Glom Filt Rate - Afr Amer 133 mL/min (>60); Estimated Creatinine Clearance 110.49 ml/min; Glucose 115 mg/dL (74-106); Sodium Level 136 mmol/L (136-145)
[2020-09-24] VITALS (10 sets, daily range): BP systolic 111–125; BP diastolic 69–78; PULSE 62–92; RESP 16–18; TEMP 37.3–37.7; O2SAT 94–96
[2020-09-24] MEDS: Diphenoxylate/Atrop 1 Tablet 2 TABLET PO ×6 (02:43→21:15)
[2020-09-24] MEDS: Dicyclomine 10 MG Capsule 20 MG PO ×4 (05:58→23:28)
[2020-09-24] MEDS: 0.9% Saline Lock 10 ML Syringe IV (06:07)
[2020-09-24 07:12] LABS: Anion Gap 7 (5-15); BUN 8 mg/dL (7-18); BUN/Creat Ratio 10.6 RATIO (10-20); Calcium,Total 6.8 mg/dL (8.5-10.1); Chloride 108 mmol/L (98-107); Creatinine, Serum 0.75 mg/dL (0.70-1.30); EST Glomerular Filtration Rate 114 mL/min (>60); Est Glom Filt Rate - Afr Amer 138 mL/min (>60); Estimated Creatinine Clearance 114.91 ml/min; Glucose 102 mg/dL (74-106); Potassium 2.9 mmol/L (3.5-5.1); Sodium Level 136 mmol/L (136-145)
[2020-09-24] MEDS: Aspirin 81 MG TAB.CHEW PO (07:34)
[2020-09-24] MEDS: Acetaminophen 325 MG Tablet 650 MG PO ×4 (07:34→23:36)
[2020-09-24] MEDS: Ensure Clear 120 ML Liquid PO ×2 (09:17→13:34)
[2020-09-24] MEDS: Famotidine 20 MG Tablet PO ×2 (09:23→21:15)
[2020-09-24] MEDS: amLODIPine 10 MG Tablet PO (09:23)
--- NOTE | 2020-09-24 12:54 | PN.HOSP_ITS ---
Hospitalist Note SUbjective Patient seen and examined today. He had no complaints and said diarrhea was improving. He had had only one episode overnight. Review of systems is otherwise negative. O/E: Vitals: T-99.4F, PA-75, RR-18, saturating at 94% on room air O/E: Const alert, oriented x3, no apparent distress and average body habitus Exam Limitations: no limitations HEENT head/scalp atraumatic, moist oral mucous membranes and oropharynx normal Head and Scalp: normocephalic Eyes PERRL and EOMs intact bilaterally Neck no lymphadenopathy and no JVD Resp normal respiratory effort, no retractions, no use of accessory muscles and clear to auscultation bilaterally Cardio regular rate, regular rhythm, S1 normal heart sound, S2 normal heart sound and no gallops GI normal to inspection, nondistended, normoactive bowel sounds, soft to palpation and non-tender Extremity normal to inspection Neuro oriented x3, CN's II-XII intact bilaterally and no sensory deficits noted Sensorium / Orientation: awake and alert Psych affect normal Assessment and plan #Diarrhea * resolving * now on clear liquid diet; will advance as tolerated. * #Hypokalemia * K is 2.9 today. Will replace aggressively and trend * #Rectal adenocarcinoma: to follow up with oncology on outpatient basis. #Hypertension: on amlodipine DVT prophylaxis * lovenox Visit Charges Inpatient E&M: 45498 Subs Hosp L2
[2020-09-24 13:35] LABS: Magnesium 1.7 mg/dL (1.6-2.6)
[2020-09-24] MEDS: Potassium Chloride 10mEq/100mL 10 MEQ/100 ML IV.SOLN. 100 MEQ IV BOLUS ×4 (14:08→17:29)
[2020-09-24] MEDS: Octreotide 0.1 MG/ML ML 0.05 MG SC ×2 (16:45→21:14)
[2020-09-25] VITALS (11 sets, daily range): BP systolic 116–127; BP diastolic 68–78; PULSE 56–70; RESP 16; TEMP 36.8–37.9; O2SAT 94–98
[2020-09-25] MEDS: Diphenoxylate/Atrop 1 Tablet 2 TABLET PO ×6 (02:35→21:15)
[2020-09-25] MEDS: Octreotide 0.1 MG/ML ML 0.05 MG SC (05:35)
[2020-09-25] MEDS: Dicyclomine 10 MG Capsule 20 MG PO ×3 (05:35→18:00)
[2020-09-25] MEDS: 0.9% Saline Lock 10 ML Syringe IV (05:57)
[2020-09-25 06:07] LABS: Hematocrit 32.1 % (40-54); Hemoglobin 11.4 g/dL (13.0-16.5); Mean Corp Hgb Conc 35.5 g/dL (32-36); Mean Corpuscular Hgb 31.1 pg (27.0-32.0); Mean Corpuscular Volume 87.7 fL (80-94); Mean Platelet Vol. 9.7 fl (6.2-12.0); POSITIVE COUNT YES; POSITIVE DIFFERENTIAL YES; POSITIVE MORPHOLOGY YES; Platelet Count 269 K/mm3 (150-450); RBC Distribution Width SD 51.4 fl (35.1-43.9); Red Blood Count 3.66 M/mm3 (4.6-6.2); White Blood Count 4.7 K/mm3 (4.4-11.0)
[2020-09-25 06:10] LABS: Differential Indicated MANUAL DIFF
[2020-09-25 06:37] LABS: Lymphocyte 12 % (19-41); Metamyelocyte 3 % (0-1); Monocyte 22 % (0-10); Myelocyte 2 % (0-0); Neutrophil-Band 15 % (0-5); Neutrophil-Segmented 46 % (47-70)
[2020-09-25 06:39] LABS: Absolute Lymphocyte Count 0.57 X10^3/uL (0.83-4.51); Absolute Neutrophil Count 2.9 X10^3/uL (2.0-7.7); Anion Gap 8 (5-15); BUN 9 mg/dL (7-18); BUN/Creat Ratio 11.4 RATIO (10-20); Calcium,Total 6.9 mg/dL (8.5-10.1); Chloride 109 mmol/L (98-107); Creatinine, Serum 0.79 mg/dL (0.70-1.30); EST Glomerular Filtration Rate 108 mL/min (>60); Est Glom Filt Rate - Afr Amer 131 mL/min (>60); Estimated Creatinine Clearance 109.09 ml/min; Glucose 92 mg/dL (74-106); Platelet Estimate ADEQUATE (ADEQ); Red Cell Morphology NORM C+C NORMAL (NORM C&C); Sodium Level 137 mmol/L (136-145)
[2020-09-25] MEDS: amLODIPine 10 MG Tablet PO (09:25)
[2020-09-25] MEDS: Potassium Chloride 10mEq/100mL 10 MEQ/100 ML IV.SOLN. 100 MEQ IV BOLUS ×3 (09:25→11:53)
[2020-09-25] MEDS: Famotidine 20 MG Tablet PO ×2 (09:25→21:15)
[2020-09-25] MEDS: Aspirin 81 MG TAB.CHEW PO (09:25)
[2020-09-25 12:10] LABS: Pathologist Review Reviewed
[2020-09-25 12:16] LABS: Pathologist Review Reviewed
[2020-09-25 12:25] LABS: Pathologist Review Reviewed
--- NOTE | 2020-09-25 12:57 | PN.HOSP_ITS ---
Subjective Subjective Patient seen and examined. He had an uneventful night but had 1 large episode of diarrhea in the early hours of this morning. He does say he feels like eating today and ordered breakfast. Review of systems otherwise negative. He still remains hypokalemic with potassium of 3. Objective Data Objective Data Vital Signs: Vital Signs Temp Pulse Resp BP Pulse Ox 98.3 F 66 16 124/73 H 96 09/25/20 09:15 09/25/20 11:02 09/25/20 09:15 09/25/20 09:15 09/25/20 09:15 Oxygen Delivery Method Room Air Weight: 215 lb 2.738 oz Body Mass Index (BMI) 30.9 Intake & Output: Intake and Output for Last 24 Hours 09/23/20 09/24/20 09/25/20 23:59 23:59 23:59 Intake Total 4061.67 / 4061.67 4114.83 / 4354.83 2133.75 / 2133.75 Balance 4061.67 / 4061.67 4114.83 / 4354.83 2133.75 / 2133.75 Lab / Micro Data Result Diagrams: 09/25/20 06:00 09/25/20 06:00 Labs: Laboratory Results - last 24 hr 09/22/20 09/23/20 09/24/20 07:55 04:55 06:15 WBC RBC Hgb Hct MCV MCH MCHC RDW Std Deviation RDW Coeff of Jennie Plt Count MPV Neut % (Auto) Absolute Neuts (auto) Absolute Lymphs (auto) Neutrophils % (Manual) Band Neutrophils % Lymphocytes % (Manual) Monocytes % (Manual) Metamyelocytes % Myelocytes % Diff Path Review Reviewed Reviewed Platelet Estimate RBC Morphology Sodium Potassium Chloride Carbon Dioxide Anion Gap BUN Creatinine Estim Creat Clear Calc Est GFR (MDRD) Af Amer Est GFR (MDRD) Non-Af BUN/Creatinine Ratio Glucose Calcium Magnesium 1.7 09/25/20 09/25/20 06:00 06:00 WBC 4.7 RBC 3.66 L Hgb 11.4 L Hct 32.1 L MCV 87.7 MCH 31.1 MCHC 35.5 RDW Std Deviation 51.4 H RDW Coeff of Jennie 17.0 H Plt Count 269 MPV 9.7 Neut % (Auto) Not Reportable Absolute Neuts (auto) 2.9 Absolute Lymphs (auto) 0.57 L Neutrophils % (Manual) 46 L Band Neutrophils % 15 H Lymphocytes % (Manual) 12 L Monocytes % (Manual) 22 H Metamyelocytes % 3 H Myelocytes % 2 H Diff Path Review Reviewed Platelet Estimate ADEQUATE RBC Morphology NORM C+C Sodium 137 Potassium 3.0 L Chloride 109 H Carbon Dioxide 20.0 L Anion Gap 8 BUN 9 Creatinine 0.79 Estim Creat Clear Calc 109.09 Est GFR (MDRD) Af Amer 131 Est GFR (MDRD) Non-Af 108 BUN/Creatinine Ratio 11.4 Glucose 92 Calcium 6.9 L Magnesium 2.0 Micro: Microbiology 09/22/20 00:00 Urine, Clean Catch Urine Culture - Final Culture exhibits no growth. 09/22/20 07:37 Mucosa - Nasopharyngeal Respiratory Panel (PCR) - Final 09/22/20 Unknown Stool Enteric Bacteriology - Final 09/22/20 00:24 Mucosa - Nose SARS-CoV-2 Antigen (Rapid) - Final Physical Exam Const alert, oriented x3, no apparent distress and average body habitus Exam Limitations: no limitations HEENT head/scalp atraumatic and oropharynx normal Head and Scalp: normocephalic Mouth: dry mucous membranes Eyes PERRL, EOMs intact bilaterally and conjunctivae normal Neck no lymphadenopathy, supple and no JVD Resp normal respiratory effort, no retractions, no use of accessory muscles and clear to auscultation bilaterally Cardio regular rate, regular rhythm, S1 normal heart sound, S2 normal heart sound, no gallops and no clicks GI normal to inspection, nondistended, normoactive bowel sounds, soft to palpation, non-tender and non-distended Extremity normal to inspection and full ROM Peripheral Pulses: Yes pulses 2+ throughout Neuro oriented x3, CN's II-XII intact bilaterally, no focal motor deficits and no sensory deficits noted Sensorium / Orientation: awake and alert Speech: speech normal Psych affect normal Assessment & Plan Assessment/Plan (1) Hypokalemia: PLAN: #Diarrhea * appears to be chemotherapy related, namely to xeloda * Did have another episode of diarrhea this morning. I did speak to his oncologist Dr. Wills yesterday about his diarrhea and he agrees that is likely all due to his chemo medication. * Patient was started on octreotide yesterday per oncology recommendations. We will continue today to see if it helps with diarrhea. * on clear liquid diet; advance as tolerated * on lomotil and bentyl. Stool for enteric pathogen and ova and parasites was negative. * #Hypokalemia: K is 3 today. Will replace and monitor #History of rectal adenocarcinoma: * Xeloda currently held as this was thought to be the cause of his diarrhea. * Follow-up with oncology on outpatient basis. * He is s/p radiation. * #Hypertension: on amlodipine DVT prophylaxis; lovenox Charges/Coding Visit Charges Inpatient E&M: 52670 Subs Hosp L2
[2020-09-25] MEDS: Acetaminophen 325 MG Tablet 650 MG PO ×2 (14:53→19:46)
[2020-09-25] MEDS: Octreotide 0.1 MG/ML ML SC ×2 (16:12→21:10)
[2020-09-26] VITALS (9 sets, daily range): BP systolic 111–115; BP diastolic 47–70; PULSE 50–69; RESP 16–18; TEMP 36.4–37.3; O2SAT 92–100
[2020-09-26] MEDS: Dicyclomine 10 MG Capsule 20 MG PO ×4 (00:16→18:31)
[2020-09-26] MEDS: Menthol/Lanolin/Calamine/Znox 113 GM Tube 1 APPLIC TOPICAL (00:20)
[2020-09-26] MEDS: Acetaminophen 325 MG Tablet 650 MG PO ×2 (00:22→06:24)
[2020-09-26] MEDS: Diphenoxylate/Atrop 1 Tablet 2 TABLET PO ×4 (02:27→17:13)
[2020-09-26] MEDS: Octreotide 0.1 MG/ML ML SC ×2 (06:26→15:13)
[2020-09-26] MEDS: 0.9% Saline Lock 10 ML Syringe IV ×2 (06:28→12:48)
[2020-09-26 06:41] LABS: Absolute Lymphocyte Count 0.33 X10^3/uL (0.83-4.51); Basophil# 0.04 X10^3/uL; Eosinophil# 0.24 X10^3/uL; Eosinophils% 6.2 % (0-5); Hematocrit 30.5 % (40-54); Hemoglobin 10.6 g/dL (13.0-16.5); Lymphocyte # 0.33 X10^3/ul (0.83-4.51); Lymphocyte % 8.6 % (19-41); Mean Corp Hgb Conc 34.8 g/dL (32-36); Mean Corpuscular Hgb 30.5 pg (27.0-32.0); Mean Corpuscular Volume 87.6 fL (80-94); Mean Platelet Vol. 9.6 fl (6.2-12.0); Monocyte# 1.16 X10^3/uL; Monocyte% 30.1 % (0-10); NRBC Flagged by Analyzer 0.5 % (0-5); Neutrophil # 1.99 X10^3/uL (2.7-7.7); Neutrophil % 51.8 % (47-70); POSITIVE DIFFERENTIAL YES; POSITIVE MORPHOLOGY YES; Platelet Count 299 K/mm3 (150-450); RBC Distribution Width CV 17.4 % (11.6-14.6); RBC Distribution Width SD 52.7 fl (35.1-43.9); Red Blood Count 3.48 M/mm3 (4.6-6.2); White Blood Count 3.9 K/mm3 (4.4-11.0)
[2020-09-26 06:46] LABS: Differential Indicated SCAN CRITERIA MET
[2020-09-26 07:02] LABS: Anisocytosis 1+; Differential Comment SCANNED; Macrocytosis RARE; Microcytosis 1+; Polychromasia RARE
[2020-09-26 07:40] LABS: Anion Gap 8 (5-15); BUN 7 mg/dL (7-18); BUN/Creat Ratio 9.9 RATIO (10-20); Calcium,Total 6.9 mg/dL (8.5-10.1); Chloride 110 mmol/L (98-107); EST Glomerular Filtration Rate 123 mL/min (>60); Est Glom Filt Rate - Afr Amer 149 mL/min (>60); Estimated Creatinine Clearance 123.12 ml/min; Glucose 93 mg/dL (74-106); Sodium Level 139 mmol/L (136-145)
--- NOTE | 2020-09-26 09:19 | EKG12_ITS ---
Test Reason : Blood Pressure : / mmHG Vent. Rate : 052 BPM Atrial Rate : 052 BPM P-R Int : 198 ms QRS Dur : 116 ms QT Int : 466 ms P-R-T Axes : 015 -24 -31 degrees QTc Int : 433 ms Sinus bradycardia with occasional Premature ventricular complexes with ventricular escape complexes Low voltage QRS Nonspecific ST and T wave abnormality Abnormal ECG When compared with ECG of 22-SEP-2020 01:08, MANUAL COMPARISON REQUIRED, DATA IS UNCONFIRMED Confirmed by EILEEN WILKINSON, SAUL ([id number]), continuity editor JUAN MANUEL WEEKS ([id number]) on 10/02/2020 7:45:12 AM Referred By: NICHOLAS Confirmed By:SAUL ARELLANO MD
[2020-09-26 09:36] LABS: Magnesium 2.2 mg/dL (1.6-2.6)
--- NOTE | 2020-09-26 10:01 | ECHOCS_ITS ---
Reason For Study: ABNORMAL EKG Procedure This was a 2D Doppler, Color Flow transthoracic echocardiogram. The study was technically difficult. Exam performed portable in patient room. Left Ventricle Normal LV size. Left ventricular systolic function is normal. The estimated ejection fraction is 60 %. Stage 2 diastolic dysfunction. No regional wall motion abnormalities noted. Right Ventricle Normal RV size. Normal systolic function. Atria Normal left atrium. Normal right atrium. Mitral Valve Normal mitral valve. Tricuspid Valve Normal tricuspid valve. Mild (1+) tricuspid valve insufficiency. Pulmonary artery systolic pressure is 25 mmHg. Aortic Valve Normal aortic valve. Trisinus/trileaflet aortic valve. Pulmonic Valve Normal pulmonic valve. Trivial pulmonic valve insufficiency. Great Vessels Normal aortic root. The pulmonary artery is normal size. Normal inferior vena cava. Pericardium/Pleural No pericardial effusion. Medication Performed a rapid injection of agitated mix of 9 cc saline and 1cc air to assess for atrial septal defect. Diluted definity 3ml given slow IV push to enhance endocardial definition. MMode/2D Measurements & Calculations LVIDd: 5.3 cm IVSd: 1.0 cm Ao root diam: 3.8 cm LVIDs: 3.5 cm LVPWd: 1.0 cm RVDd: 3.8 cm FS: 33.2 % LAV(MOD-bp): 67.0 ml LVAd ap4: 40.7 cm2 SV(MOD-sp4): 94.0 ml LAV(MOD-bp) Indexed: 31.1 ml/m2 LVLd ap4: 9.0 cm LAV(MOD-sp2): 70.9 ml EDV(MOD-sp4): 148.9 ml LAV(MOD-sp4): 58.2 ml EDV(sp4-el): 156.5 ml LVAs ap4: 20.3 cm2 LVLs ap4: 6.8 cm ESV(MOD-sp4): 54.9 ml ESV(sp4-el): 51.7 ml EF(MOD-sp4): 63.2 % EF(sp4-el): 67.0 % SV(sp4-el): 104.8 ml LA A4 area: 21.7 cm2 LA dimension(2D): 4.1 cm RA A4 area: 19.1 cm2 Time Measurements MV dec time: 0.16 sec Doppler Measurements & Calculations MV E max eliazar: 82.2 cm/sec Lat Peak E' Eliazar: 16.4 cm/sec Med Peak E' Eliazar: 10.9 cm/sec MV A max eliazar: 54.5 cm/sec E/E' lat: 5.0 E/E' med: 7.6 MV E/A: 1.5 Ao V2 max: 146.3 cm/sec LV V1 max: 137.6 cm/sec PA V2 max: 118.5 cm/sec Ao max P.6 mmHg LV V1 max P.6 mmHg TR max eliazar: 224.6 cm/sec TR max P.2 mmHg ECHO/Echo Complete W/ Contrast Interpretation Summary Normal LV size. Left ventricular systolic function is normal. The estimated ejection fraction is 60 %. Stage 2 diastolic dysfunction. Pulmonary artery systolic pressure is 25 mmHg. Contrast injection was performed. Ordering Physician: Taryn Cervantes Referring Physician: SOPHIE MCLAIN Performed By: Josefina Miller RDCS
[2020-09-26 10:27] LABS: Troponin-I HS 5.6 pg/mL (3.0-78.5)
[2020-09-26] MEDS: Potassium Chloride 10mEq/100mL 10 MEQ/100 ML IV.SOLN. 100 MEQ IV BOLUS ×4 (10:32→15:03)
[2020-09-26] MEDS: Potassium Chloride Oral Tablet 20 MEQ 60 MEQ PO (10:34)
[2020-09-26] MEDS: Famotidine 20 MG Tablet PO (12:13)
[2020-09-26] MEDS: Aspirin 81 MG TAB.CHEW PO (12:13)
[2020-09-26] MEDS: amLODIPine 10 MG Tablet PO (12:13)
[2020-09-26 12:16] LABS: Pathologist Review Reviewed
[2020-09-26 13:16] LABS: Troponin-I HS 5.5 pg/mL (3.0-78.5)
--- NOTE | 2020-09-26 14:17 | PCM.DC.SUM ---
Providers Date of Admission: 09/22/20 Primary Care Physician: Dr. Ronnell Moss MD Reason For Visit: HYPOKALEMIA, FUO, DIARRHEA Diagnosis Discharge Diagnosis (1) Hypokalemia: Status: Acute Code(s): E87.6 - Hypokalemia Medications at Discharge Home Medications aspirin 81 mg PO DAILY 06/25/16 hydrochlorothiazide 25 mg PO DAILY 06/25/16 amlodipine 5 mg tablet 10 mg PO DAILY tab 04/16/20 magnesium oxide 500 mg PO DAILY 04/18/20 lidocaine-prilocaine 1 applicatio TP DAILY PRN PRN 30 Days #1 tube 05/14/20 ondansetron 8 mg PO Q8H PRN PRN 10 Days #30 tab.rapdis 05/14/20 acetaminophen 500 mg PO DAILY 05/29/20 oxaliplatin 100 mg IV BOLUS 08/10/20 bismuth subsalicylate [Pepto-Bismol] 2 tab PO Q30M PRN #30 tab 09/26/20 dicyclomine 20 mg PO Q6 #30 cap 09/26/20 diphenoxylate-atropine 2 tab PO Q4 #30 tab 09/26/20 octreotide acetate [Sandostatin] 50 mcg SUBCUT Q8H #10 ml 09/26/20 Hospital Course Operations None Procedures 2-D Echocardiogram Summary of Care Provided Minutes Spent on Discharge: 45 Hospital Course: Patient is a 55-year-old male with a past medical history as outlined which includes rectal adenocarcinoma undergoing chemotherapy with his last chemotherapy being 09/10/2020. He was admitted through the ED on 09/22/2020 with a complaint of diarrhea. He had been using his antidiarrheal medication at home. Stool done on outpatient basis showed positive leukocytes and C. difficile was negative and ova and parasites were pending at time he came in. He had associated diffuse abdominal cramping. He also complained of some mild fever and cough as well as congestion. He had had his Covid shots done. He was also found to be hypokalemic. He was admitted and managed for diarrhea which was thought to be due to his chemotherapy namely Xeloda as well as hypokalemia. Patient was hydrated with IV fluids and potassium was replaced aggressively. Stool for enteric pathogen was negative. Patient kept on having diarrhea so I did speak to his oncologist who thought was also due to Xeloda and recommended use of Sandostatin to help with the diarrhea. Patient gradually improved and diarrhea improved to about once or twice daily. Potassium still remains low and was 3 at time of discharge. On day of discharge, patient was noted to have some PVCs. EKG and 2D echo was ordered. EKG done showed sinus bradycardia with PVCs a previous EKG done in the record showed left bundle branch block with PVCs. 2D echo was ordered and result was pending at time of discharge. Patienet seen and examined prior to discharge. He had no complaints and felt well. Review of systems otherwise negative. Labs and vitals reviewed. Her medication reviewed and reconciled. Diarrhea had improved. Physical Exam Const alert, oriented x3, no apparent distress and average body habitus General Appearance: cooperative and comfortable Exam Limitations: no limitations HEENT normocephalic, head/scalp atraumatic and oropharynx normal Eyes PERRL, EOMs intact bilaterally and conjunctivae normal Neck no lymphadenopathy, supple and no JVD Resp normal respiratory effort, no retractions, no use of accessory muscles and clear to auscultation bilaterally Cardio regular rate, regular rhythm, S1 normal heart sound, S2 normal heart sound, no gallops and no clicks GI normal to inspection, nondistended, normoactive bowel sounds, soft to palpation, non-tender and non-distended Extremity normal to inspection and full ROM Skin no rashes or lesions noted Neuro oriented x3, CN's II-XII intact bilaterally, no focal motor deficits and no sensory deficits noted Sensorium / Orientation: awake and alert Speech: speech normal Psych affect normal Weight / BMI Weight Weight: 215 lb 2.738 oz Body Mass Index (BMI) 30.9 ABG / Lab / Microbiology Data Result Diagrams: 09/26/20 06:30 09/26/20 06:30 Laboratory: Laboratory Results - last 24 hr 09/26/20 09/26/20 09/26/20 06:30 06:30 06:30 WBC 3.9 L RBC 3.48 L Hgb 10.6 L Hct 30.5 L MCV 87.6 MCH 30.5 MCHC 34.8 RDW Std Deviation 52.7 H RDW Coeff of Jennie 17.4 H Plt Count 299 MPV 9.6 Immature Gran % (Auto) 2.300 H Neut % (Auto) 51.8 Lymph % (Auto) 8.6 L [place] % (Auto) 30.1 H Eos % (Auto) 6.2 H Baso % (Auto) 1.0 Absolute Neuts (auto) 2.0 Absolute Lymphs (auto) 0.33 L Nucleated RBC % 0.5 Differential Comment SCANNED Diff Path Review Reviewed Polychromasia RARE Anisocytosis 1+ Microcytosis 1+ Macrocytosis RARE Sodium 139 Potassium 3.0 L Chloride 110 H Carbon Dioxide 21.0 Anion Gap 8 BUN 7 Creatinine 0.70 Estim Creat Clear Calc 123.12 Est GFR (MDRD) Af Amer 149 Est GFR (MDRD) Non-Af 123 BUN/Creatinine Ratio 9.9 L Glucose 93 Calcium 6.9 L Magnesium 2.2 Troponin I High Sens 09/26/20 09/26/20 09:45 12:40 WBC RBC Hgb Hct MCV MCH MCHC RDW Std Deviation RDW Coeff of Jennie Plt Count MPV Immature Gran % (Auto) Neut % (Auto) Lymph % (Auto) [place] % (Auto) Eos % (Auto) Baso % (Auto) Absolute Neuts (auto) Absolute Lymphs (auto) Nucleated RBC % Differential Comment Diff Path Review Polychromasia Anisocytosis Microcytosis Macrocytosis Sodium Potassium Chloride Carbon Dioxide Anion Gap BUN Creatinine Estim Creat Clear Calc Est GFR (MDRD) Af Amer Est GFR (MDRD) Non-Af BUN/Creatinine Ratio Glucose Calcium Magnesium Troponin I High Sens 5.6 5.5 Microbiology: Microbiology 09/22/20 00:00 Urine, Clean Catch Urine Culture - Final Culture exhibits no growth. 09/22/20 07:37 Mucosa - Nasopharyngeal Respiratory Panel (PCR) - Final 09/22/20 Unknown Stool Enteric Bacteriology - Final 09/22/20 00:24 Mucosa - Nose SARS-CoV-2 Antigen (Rapid) - Final D/C Instructions Discharge Diet: 2000 mg Sodium Diet Discharge Activity: Return to Normal Activity Weight Bearing Status: Weight bearing as tolerated Call your doctor if you observe: Fever of 101 or Higher, Shortness of breath, Swelling in the ankles and - (worsening diarrhea) Meaningful Use Info Meaningful Use Diagnoses (Choose all that apply): None applicable Discharge Plan Admission Admit Date/Time: 09/22/20 10:31 Primary Reason for Your Visit: diarrhea, hypokalemia Attending Provider: Taryn Cervantes Primary Care Provider: Ronnell Moss Instructions Patient Instructions: Treating Diarrhea, Self-Care for Vomiting and Diarrhea Discharge Orders/Prescriptions Prescriptions: New diphenoxylate-atropine 2.5-0.025 mg Tablet 2 tab PO Q4 Qty: 30 RF: 1 dicyclomine 10 mg Capsule 20 mg PO Q6 Qty: 30 RF: 1 Pepto-Bismol 262 mg tablet 2 tab PO Q30M PRN (Reason: diarrhea) Qty: 30 RF: 0 octreotide acetate [Sandostatin] 50 mcg/mL solution 50 mcg subcut Q8H Qty: 10 RF: 0 Continued aspirin 81 MG tablet,chewable 81 mg PO DAILY RF: 0 hydrochlorothiazide 25 MG tablet 25 mg PO DAILY RF: 0 amlodipine 5 mg tablet 10 mg PO DAILY RF: 0 magnesium oxide 500 MG capsule 500 mg PO DAILY RF: 0 ondansetron 8 MG tablet,disintegrating 8 mg PO Q8H PRN PRN (Reason: Nausea) 10 Days Qty: 30 RF: 3 lidocaine-prilocaine 30 GM cream 1 applicatio TP DAILY PRN PRN (Reason: Not Specified) 30 Days Qty: 1 RF: 2 acetaminophen 500 MG tablet 500 mg PO DAILY RF: 0 oxaliplatin 100 mg IV BOLUS RF: 0 Discontinued capecitabine [Xeloda] 500 MG tablet 2,000 mg PO BID RF: 0 Referrals / Follow Up: Elieser Dang MD [NON-STAFF] - 10/01/20 9:00 am Ronnell Moss MD [Primary Care Provider] - 09/28/20 4:00 pm (Appointment is with Felicia Montero N.P) Disposition Disposition (needs filled in before D/C Order can be placed): Home, Self Care Charges/Coding Visit Charges Inpatient E&M: 97698 Disch Hosp
--- NOTE | 2020-09-26 15:42 | PHA.DC.MR ---
Pharmacy Service has performed discharge medication reconciliation for this patient. The patient's discharge medication list was reviewed for discrepancies and discrepancies were resolved. Home Medications aspirin 81 mg PO DAILY 06/25/16 hydrochlorothiazide 25 mg PO DAILY 06/25/16 amlodipine 5 mg tablet 10 mg PO DAILY tab 04/16/20 magnesium oxide 500 mg PO DAILY 04/18/20 lidocaine-prilocaine 1 applicatio TP DAILY PRN PRN 30 Days #1 tube 05/14/20 ondansetron 8 mg PO Q8H PRN PRN 10 Days #30 tab.rapdis 05/14/20 acetaminophen 500 mg PO DAILY 05/29/20 oxaliplatin 100 mg IV BOLUS 08/10/20 bismuth subsalicylate [Pepto-Bismol] 2 tab PO Q30M PRN #30 tab 09/26/20 dicyclomine 20 mg PO Q6 #30 cap 09/26/20 diphenoxylate-atropine 2 tab PO Q4 #30 tab 09/26/20 octreotide acetate [Sandostatin] 50 mcg SUBCUT Q8H #10 ml 09/26/20
--- NOTE | 2020-09-26 15:54 | CASEMGMT ---
Per Barrie in [facility] pharmacy, Octreotide needs a prior auth or it is $42. This YAHIR GONCALVES attempted to get prior auth and it was over-ridden by Sandy for a month's supply but can only be dispensed thru a contracted pharmacy, [facility] or [facility], but then pt would not get med for several days so pt/ decide to just pay the $42. Pt/ voice no further questions/concerns/needs. SStaten YAHIR GONCALVES
--- NOTE | 2020-09-27 13:38 | CASEMGMT ---
RN CM Discharge F/U Phone Call LACE: 13 Strata: 3 Discharge date: 09/26/20 Call date: 09/27/20 Call time: [phone] Attempted to reach pt without success, message left for pt to call this RN CM if/when able. SStaten RN CM Admission dx: Hypokalemia, diarrhea
== END 2020-09-26 19:07 | disposition home or self-care (01) | DRG 394 ==
LOC: ED 23:41 → PCU 09-22 01:13
PROVIDERS: Internal Medicine; Admitting Provider Family Medicine; Emergency Provider Emergency Medicine; PCP Family Medicine; Visit Provider Student in an Organized Health Care Education/Training Program
DX: K52.1 Toxic gastroenteritis and colitis (principal); C20 Malignant neoplasm of rectum; E87.6 Hypokalemia; I10 Essential (primary) hypertension; Z79.899 Other long term (current) drug therapy; T45.1X5A Adverse effect of antineoplastic and immunosuppressive drugs, initial encounter; D70.1 Agranulocytosis secondary to cancer chemotherapy
CPT/HCPCS: 71045; 74177; 80048; 80053; 81001; 83605; 83690; 83735; 84100; 84484; 85025; 87040; 87086; 87426; 87506; 87633; 93005; 93306; 97803; 99284; J7030; Q9957; Q9967; A4216; C8929; J0610; J2354; J2405; J3490

== ENCOUNTER → 2021-02-25 08:24 | Outpatient (CLI) | payer OTHER, SELFPAY ==
[2020-05-07 08:21] VITALS: BMI 31.8
--- NOTE | 2021-02-25 08:28 | CT_ITS ---
STUDY: CT ABDOMEN AND PELVIS WITH CONTRAST REASON FOR EXAM: Male, 55 years old. SURVEILLANCE OF RECTAL CANCER. Prior radiation and chemotherapy. Surgical intervention. RADIATION DOSAGE (If Supplied By Facility): CTDIvol = ( 13.72 ) mGy, DLP = ( 1083.64 ) mGycm TECHNIQUE: Transaxial images were obtained from the dome of the diaphragm to the symphysis pubis with oral contrast. Oral and amp; IV Readi-CAT and amp; 100mL Isovue-300 was administered. Sagittal and coronal images were reconstructed. Individualized dose optimization techniques were used for this CT. COMPARISON: Comparison is made with prior study dated 09/22/2020. FINDINGS: Stable mild increased markings at the lung bases suggestive of linear atelectasis and/or scarring. A dual-chamber pacemaker is seen. There is decreased attenuation of the liver consistent with steatosis. Normal gallbladder and extrahepatic biliary system. Normal spleen. Normal pancreas. Normal bilateral adrenal glands. Normal right kidney. Normal left kidney. Normal visualized stomach. Normal small intestine. There are multiple colonic diverticula consistent with diverticulosis. Surgical anastomosis seen at the level of the rectum. Fecal material is seen throughout the colon. The appendix is visualized and appears normal. Normal abdominal aorta. Normal inferior vena cava. Normal retroperitoneum. Diffuse bladder wall thickening. Prostatic enlargement. Post surgical changes are seen at the level of the umbilicus. There are degenerative changes of the visualized lumbar spine. CT/Abdomen/Pelvis WITH Contrast IMPRESSION: Anastomosis seen in the region of the rectum. Moderate amount of fecal material is seen in the colon. Diffuse fatty infiltration of the liver. Diffuse bladder wall thickening. Electronically Signed: Salty Montero MD at 14:36 EST , Service support ,
[2021-02-25 08:40] LABS: EGFR FINGERSTICK > 60.0000 mL/min (>60)
[2021-02-25] MEDS: 0.9% Saline Lock 10 ML Syringe IV (08:52)
== END ==
PROVIDERS: PCP Family Medicine; Referring Provider Internal Medicine Medical Oncology; Visit Provider Internal Medicine Medical Oncology
DX: C20 Malignant neoplasm of rectum (principal)
CPT/HCPCS: 74177; Q9967; A4216

== ENCOUNTER 2021-04-19 07:07 | Day surgery (SDC) | payer OTHER, SELFPAY ==
[2020-05-07 08:21] VITALS: BMI 31.8
[2021-04-19 07:31] VITALS: BP 134/78; PULSE 53; RESP 16; TEMP 36.6; O2SAT 98; BMI 32.9
--- NOTE | 2021-04-19 07:37 | HP.PCM_ITS ---
History and Physical Date of Admission: 04/19/21 Intake Visit Reasons: COLONOSCOPY, DUE ONCE A YEAR Chief Complaint: c-scope Form Carpenter Required: No Is patient in pain?: No Allergies lisinopril Allergy (Severe, Verified 04/09/21 14:49) Hives Medications aspirin 81 mg PO DAILY 06/25/16 [History Confirmed 04/09/21] hydrochlorothiazide 25 mg PO DAILY 06/25/16 [History Confirmed 04/09/21] amlodipine 5 mg tablet 10 mg PO DAILY tab 04/16/20 [History Confirmed 04/09/21] magnesium oxide 500 mg PO DAILY 04/18/20 [History Confirmed 04/09/21] lidocaine-prilocaine 1 applicatio TP DAILY PRN PRN 30 Days #1 tube 05/14/20 [Rx Confirmed 04/09/21] ondansetron 8 mg PO Q8H PRN PRN 10 Days #30 tab.rapdis 05/14/20 [Rx Confirmed 04/09/21] oxaliplatin 100 mg IV BOLUS 08/10/20 [History Confirmed 04/09/21] bismuth subsalicylate [Pepto-Bismol] 2 tab PO Q30M PRN #30 tab 09/26/20 [Rx Confirmed 04/09/21] dicyclomine 20 mg PO Q6 #30 cap 09/26/20 [Rx Confirmed 04/09/21] diphenoxylate-atropine 2 tab PO Q4 #30 tab 09/26/20 [Rx Confirmed 04/09/21] octreotide acetate [Sandostatin] 50 mcg SUBCUT Q8H #10 ml 09/26/20 [Rx Confirmed 04/09/21] acetaminophen 500 mg tablet 500 mg PO DAILY PRN 02/28/21 [History Confirmed 04/09/21] lactobacillus combo no.11 15 billion cell sprinkle capsule 1 cap PO DAILY 02/28/21 [History Confirmed 04/09/21] psyllium seed (sugar) oral powder 1 tbsp PO DAILY 02/28/21 [History Confirmed 04/09/21] PFSH Medical History Abdominal pain Blood in stool Constipation Diarrhea Hemorrhoids Hypertension Hypokalemia Neutropenia Palmar plantar erythrodysaesthesia Skin cancer of nose Surgical History History of low anterior resection of rectum History of vasectomy Family History Mother High cholesterol Hypertension CVA (cerebral vascular accident) Colon polyps Father High cholesterol Hypertension Heart failure Afib Social History household members: spouse and family Smoking Status: Never smoker alcohol intake: current alcohol intake frequency: holidays/special occasions only substance use type: does not use HPI HPI HPI: EZ CARLISLE, is a 55 M who presents to the office today for surgical follow-up regarding a previous history of rectal cancer. The patient had definitive resection performed by Dr. Victoriano Lima in the patient's local weed burner oncologist as Dr. Elieser Dang. Dr. Chandler Richey is the local radiation oncologist. Received DANIELA-currently getting CAPOX, C3 was on 09/10/2020. Had persistent diarrhea due to enterocolitis so C4 was abandoned. Needed Octreotide to stop diarrhea. Had LAR and ileostomy on 10/24/2020 at [facility]. Reversal of ileostomy was done at [facility]. As of February 28, 2021 white blood cell count 4.2 with a hemoglobin 13.5 and hematocrit 39.7 and platelet count of 358,000. BUN 17 creatinine 1.08. CEA levels. April 20, 2020 6.8 and May 22, 2020 8.8 in July 24, 1999 2110 and November 27, 2020 5.8 and on February 28, 2021 6.9 02/25/2021 CT a/p reviewed. CT/Abdomen/Pelvis WITH Contrast IMPRESSION: Anastomosis seen in the region of the rectum. Moderate amount of fecal material is seen in the colon. Diffuse fatty infiltration of the liver. Diffuse bladder wall thickening. Electronically Signed: Salty Montero MD at 14:36 EST I have personally reviewed the CT scan. The patient has history of a right lower quadrant diverting ileostomy. That fascial site appears to be intact. The extraction site based upon the umbilicus through a vertical incision however demonstrates a ventral incisional hernia on the CT imaging. The patient states that he has been having some intermittent discomfort and firmness in the right periumbilical area. ROS General General: No weight change, appetite, fatigue, colon cancer or breast cancer HEENT HEENT: No difficulty swallowing, eye injury, eye surgery, swollen glands or hoarseness Endo Endocrine: No thyroid disease, diabetes mellitus, thyroid cancer, Hair loss, heat intolerance or cold intolerance Skin Skin: No rash or changing moles Breast Breast: No left breast lump, right breast lump, nipple discharge, breast pain, abnormal mammogram, abnormal US or breast enlargement [facility] [place]culoskeletal: No back problems, arthritis, rheumatoid arthritis, gout or joint pain Cardio Cardiovascular: Yes high blood pressure; No murmur, pacemaker, heart disease, atrial fibrillation, heart attack, heart stent, palpitations, shortness of breat with exertion or chest pain Psych Psychiatric: No depression, anxiety or hearing voices Resp Respiratory: No shortness of breath, No sleep apnea, No cough, No COPD, No asthma, No emphysema and No wheezing Gastro Gastrointestinal: No abdominal pain, No nausea or vomiting, No diarrhea, Yes constipation, No blood in stool, No acid reflux, No hemorrhoids, No ulcers, No gallbladder problem and No black,tarry stools Jorje Hematologic: No blood thinners, No blood disorders, No bleeding, No anemia and Yes blood clots Exam Const General: cooperative, comfortable and no acute distress Nutritional Appearance: overweight Orientation: alert and awake HENAZ Head: normal to inspection Eyes General: appearance normal, both eyes and all related structures Neck Neck: normal visual inspection Resp Effort & Inspection: normal respiratory effort Auscultation: clear to auscultation bilaterally Cardio Rate: regular rate Rhythm: regular rhythm GI Palpation: soft and no hepatosplenomegaly Other: Slightly hypertrophic scar right lower quadrant diverting ileostomy site. Otherwise well-healed laparoscopic port sites. Vertical incision based upon the umbilicus with a ventral incisional hernia and bulging tissue based upon the superior aspect of that vertical incision. Currently reducible[place] [facility] [place]ervical Spine: normal cervical lordosis Skin General: no rashes or lesions noted Neuro General: patient alert and patient awake Extrem General: no calf tenderness Psych Appearance: grossly normal Assessment and Plan Assessment and Plan (1) History of rectal cancer: Status: Acute (2) Ventral incisional hernia without obstruction or gangrene: Status: Acute Plan - Dr. Colten Rizvi MD: 55-year-old gentleman. He has some variable CEA levels with repeat testing next month prior to his appointment with Dr. Victoriano Lima. I propose for the patient colonoscopy with possible biopsy or polypectomy as indicated. He is aware of technique, benefit, risk and alternatives. We will try to accomplish so this information can be available to Dr. Victoriano Lima as well. The patient has a ventral incisional hernia that is currently reducible based at the umbilicus. On CT imaging there is small bowel that is not Herb into that area. If the patient passes his colorectal surgery and hematologic oncologic care April 2021 then I would propose for the patient an elective repair of th is area. I would anticipate an open with possible conversion to a laparoscopic hybrid approach. He has had an opportunity to ask and have questions answered. He appears to have made very nice recovery from his chemoradiation and surgical intervention. Copy: Dr. Victoriano Lima and Dr. Johann Ramirez and Dr. Elieser Dang I have re-examined the patient. There are no clinical changes since date of herb lara
[2021-04-19] MEDS: Lactated Ringers 1,000 ML 15 ML IV (07:39)
[2021-04-19 08:25] VITALS: BP 134/78; BP 85/46; PULSE 65; RESP 16; TEMP 36.4; O2SAT 95
--- NOTE | 2021-04-19 08:28 | OP.COLON_ITS ---
Patient Name: Luis Kan Procedure Date: 04/19/2021 7:40 AM Date of : 1965 Age: 55 Procedure: Colonoscopy Indications: High risk colon cancer surveillance: Personal history of colon cancer Providers: Colten Rizvi MD Referring MD: Colten Rizvi MD Medicines: See the Anesthesia note for documentation of the administered medications Patient Profile: Last Colonoscopy: 1 year ago. Complications: No immediate complications. Procedure: Pre-Anesthesia Assessment: - Prior to the procedure, a History and Physical was performed, and patient medications and allergies were reviewed. The patient's tolerance of previous anesthesia was also reviewed. The risks and benefits of the procedure and the sedation options and risks were discussed with the patient. All questions were answered, and informed consent was obtained. Prior Anticoagulants: The patient has taken no previous anticoagulant or antiplatelet agents. ASA Grade Assessment: II - A patient with mild systemic disease. After reviewing the risks and benefits, the patient was deemed in satisfactory condition to undergo the procedure. After I obtained informed consent, the scope was passed under direct vision. Throughout the procedure, the patient's blood pressure, pulse, and oxygen saturations were monitored continuously. The colonoscope was introduced through the anus and advanced to the cecum, identified by appendiceal orifice and ileocecal valve. The colonoscopy was performed without difficulty. The patient tolerated the procedure well. The quality of the bowel preparation was good. The ileocecal valve and the appendiceal orifice were photographed. Scope In: 8:01:20 AM Scope Withdrawal Time 0 hours 10 minutes 1 second Scope Out: 8:19:20 AM Total Procedure Duration Time 0 hours 18 minutes 0 seconds Findings: The digital rectal exam findings include non-thrombosed internal hemorrhoids, internal hemorrhoids that prolapse with straining, but spontaneously regress to the resting position (Grade II) and enlarged prostate. There was evidence of a prior end-to-side colo-rectal anastomosis in the distal rectum. This was patent and was characterized by congestion and an intact staple line. The exam was otherwise without abnormality. Impression: - Non-thrombosed internal hemorrhoids, internal hemorrhoids that prolapse with straining, but spontaneously regress to the resting position (Grade II) and enlarged prostate found on digital rectal exam. - Patent end-to-side colo-rectal anastomosis, characterized by congestion and an intact staple line. - The examination was otherwise normal. - No specimens collected. Recommendation: - Discharge patient to home. - Resume previous diet. - Continue present medications. - Repeat colonoscopy in 1 year for surveillance. Procedure Code(s): --- Professional --- 82745, Colonoscopy, flexible; diagnostic, including collection of specimen(s) by brushing or washing, when performed (separate procedure) Diagnosis Code(s): --- Professional --- Z85.038, Personal history of other malignant neoplasm of large intestine Z98.0, Intestinal bypass and anastomosis status K64.1, Second degree hemorrhoids N40.0, Benign prostatic hyperplasia without lower urinary tract symptoms CPT copyright 2017 [employer]. All rights reserved. The codes documented in this report are preliminary and upon sales engineering manager review may be revised to meet current compliance requirements. Colten Rizvi MD 04/19/2021 8:26:34 AM This report has been signed electronically. Number of Addenda: 0 Note Initiated On: 04/19/2021 7:40 AM
--- NOTE | 2021-04-19 08:28 | OP.CCLET_ITS ---
04/19/2021 Elieser Dang MD [address] [place] [address] Re : Colonoscopy procedure for Luis Kan Dear Dr. Dang This procedure was performed on Monday, April 19, 2021. My impressions and recommendations are as follows: Impressions : - Non-thrombosed internal hemorrhoids, internal hemorrhoids that prolapse with straining, but spontaneously regress to the resting position (Grade II) and enlarged prostate found on digital rectal exam. - Patent end-to-side colo-rectal anastomosis, characterized by congestion and an intact staple line. - The examination was otherwise normal. - No specimens collected. Recommendations : - Discharge patient to home. - Resume previous diet. - Continue present medications. - Repeat colonoscopy in 1 year for surveillance. My findings are described in the full procedure note, which is enclosed. If I can be of further assistance, please feel free to contact me at Doctor phone number(s): Work: . Sincerely, Colten Rizvi MD 04/19/2021 8:26:34 AM This report has been signed electronically.
[2021-04-19 08:30] VITALS: BP 111/75; BP 134/78; PULSE 60; RESP 16; O2SAT 91
[2021-04-19 08:35] VITALS: BP 112/76; BP 134/78; PULSE 56; RESP 15; O2SAT 93
[2021-04-19 08:40] VITALS: BP 112/82; BP 134/78; PULSE 53; RESP 15; TEMP 36.5; O2SAT 94
[2021-04-19 08:58] VITALS: BP 134/78
== END 2021-04-19 23:59 | disposition home or self-care (01) ==
LOC: EN 07:08 → AC 07:08
PROVIDERS: PCP Family Medicine; Referring Provider Surgery; Visit Provider Surgery
PROC: 0DJD8ZZ Inspection of Lower Intestinal Tract, Via Natural or Artificial Opening Endoscopic (ICD-10-PCS; CPT 45378; principal; 2021-04-19 07:55)
DX: Z12.11 Encounter for screening for malignant neoplasm of colon (principal); K64.1 Second degree hemorrhoids; K43.2 Incisional hernia without obstruction or gangrene; N40.0 Benign prostatic hyperplasia without lower urinary tract symptoms; I10 Essential (primary) hypertension; F17.220 Nicotine dependence, chewing tobacco, uncomplicated; Z79.82 Long term (current) use of aspirin; Z79.899 Other long term (current) drug therapy; Z85.038 Personal history of other malignant neoplasm of large intestine; Z98.0 Intestinal bypass and anastomosis status; Z20.822 Contact with and (suspected) exposure to COVID-19
CPT/HCPCS: 45378; 87426; C9803; J7120; J2405

== ENCOUNTER 2021-07-08 11:02 | Observation (INO) | payer OTHER, SELFPAY ==
[2020-05-07 08:21] VITALS: BMI 31.8
--- NOTE | 2021-07-05 12:32 | EKG12_ITS ---
Test Reason : PREOP Blood Pressure : / mmHG Vent. Rate : 052 BPM Atrial Rate : 052 BPM P-R Int : 196 ms QRS Dur : 162 ms QT Int : 502 ms P-R-T Axes : 032 -42 006 degrees QTc Int : 466 ms Sinus bradycardia with occasional Premature ventricular complexes Left axis deviation Right bundle branch block Abnormal ECG Confirmed by LUACS WILKINSON, MIRANDA ([id number]), news editor JUAN MANUEL WEEKS ([id number]) on 07/08/2021 1:44:37 PM Referred By: Colten Rizvi Confirmed By:CHIN ZAVALA MD
[2021-07-05 13:19] LABS: Hemoglobin 13.8 g/dL (13.0-16.5); Mean Corp Hgb Conc 34.5 g/dL (32-36); Mean Corpuscular Hgb 28.6 pg (27.0-32.0); Mean Corpuscular Volume 82.8 fL (80-94); Mean Platelet Vol. 9.7 fl (6.2-12.0); Platelet Count 293 K/mm3 (150-450); RBC Distribution Width CV 13.2 % (11.6-14.6); RBC Distribution Width SD 39.8 fl (35.1-43.9); Red Blood Count 4.83 M/mm3 (4.6-6.2); White Blood Count 3.6 K/mm3 (4.4-11.0)
[2021-07-05 13:36] LABS: Anion Gap 7 (5-15); BUN 13 mg/dL (7-18); BUN/Creat Ratio 11.6 RATIO (10-20); Calcium,Total 8.9 mg/dL (8.5-10.1); Chloride 107 mmol/L (98-107); Creatinine, Serum 1.12 mg/dL (0.70-1.30); EST Glomerular Filtration Rate 72 mL/min (>60); Est Glom Filt Rate - Afr Amer 87 mL/min (>60); Glucose 106 mg/dL (74-106); Potassium 3.7 mmol/L (3.5-5.1); Sodium Level 139 mmol/L (136-145)
[2021-07-08] VITALS (17 sets, daily range): BP systolic 118–147; BP diastolic 85–103; PULSE 44–66; RESP 14–18; TEMP 36.4–37.3; O2SAT 91–97; BMI 32.1
--- NOTE | 2021-07-08 | HERN_PTH ---
PATIENT: EZ CARLISLE LOC: [facility] U#:[id number] AGE/SX: 56/M ROOM: AZ315 RE07/08/[address]: Dr. Colten Rizvi MD : 1965 BED: 1 DIS: 07/10/2021 SPEC #: [id number] RECD: 07/08/21 13:07 STATUS: TRISTA ZARCO #: [id number] NICK: 07/08/21 00:[address]: Colten Rizvi DEPT: SURGICAL PATHOLOGY RECD BY: Larry Taylor ENTERED: 07/08/21 13:08 SP TYPE: Hernia OTHR DR: Dr. Johann Ramirez MD Tissues: HERNIA Procedures: Surgery Specimen Level II HEADER OPERATION: Hybrid open and laparoscopic ventral incisional hernia repair PRE-OP DIAGNOSIS: Ventral incisional hernia TISSUE SUBMITTED: Hernia sac MICROSCOPIC DIAGNOSIS Hernia sac: A piece of fibroadipose and fibroconnective tissue, consistent with hernia sac with chronic inflammation and reactive changes. LUC:alfredo 07/09/2021 MICROSCOPIC DESCRIPTION Slides are reviewed. GROSS DESCRIPTION Received in fixative is one container labeled with the patient's name and designated hernia sac. The specimen consists of a piece of nicole soft tissue measuring 9 x 3 x 0.5 cm. No mass lesion is identified. Oval Or Circular Glass Cutter sections are submitted in one cassette. / LUC:alfredo 07/08/2021 TC:5 CPT: 31678
--- NOTE | 2021-07-08 06:11 | HP.PCM_ITS ---
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: No Is patient in pain?: No Allergies lisinopril Allergy (Severe, Verified 06/13/21 08:32) Hives Medications aspirin 81 mg PO DAILY 06/25/16 [History Confirmed 06/13/21] hydrochlorothiazide 25 mg PO DAILY 06/25/16 [History Confirmed 06/13/21] amlodipine 5 mg tablet 10 mg PO DAILY tab 04/16/20 [History Confirmed 06/13/21] magnesium oxide 500 mg PO DAILY 04/18/20 [History Confirmed 06/13/21] acetaminophen 500 mg tablet 500 mg PO DAILY PRN 02/28/21 [History Confirmed 06/13/21] lactobacillus combo no.11 15 billion cell sprinkle capsule 1 cap PO DAILY 02/28/21 [History Confirmed 06/13/21] PFSH Medical History (Updated 06/13/21 @ 08:41 by Nilda Kirkland) Abdominal pain Blood in stool Cancer Constipation Diarrhea Former smoker Hemorrhoids History of echocardiogram Hypertension Hypokalemia Neutropenia Palmar plantar erythrodysaesthesia Restless legs Skin cancer of nose Wears glasses Surgical History (Updated 06/13/21 @ 08:41 by Nilda Kirkland) History of colonoscopy (~03/2021) History of low anterior resection of rectum History of vasectomy Hx of colectomy Hx of colonoscopy Hx of surgical procedure Family History Mother High cholesterol Hypertension CVA (cerebral vascular accident) Colon polyps Father High cholesterol Hypertension Heart failure Afib Social History household members: spouse and family Smoking Status: Former smoker alcohol intake: current alcohol intake frequency: holidays/special occasions only substance use type: does not use HPI HPI HPI: EZ CARLISLE, is a 56 M who presents to the office today for surgical consultation regarding ventral incisional herniorrhaphy. The patient had a laparoscopic low anterior resection. His incision at the umbilical level has herniated. It is progressively enlarging and becoming uncomfortable. 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 He is interested in proceeding with repair. HPI: EZ CARLISLE, is a 55 M who presents to the office today for surgical follow-up regarding a previous history of rectal cancer. The patient had definitive resection performed by Dr. Victoriano Lima in the patient's local software quality assurance specialist oncologist as Dr. Elieser Dang. Dr. Chandler Richey is the local radiation oncologist. Received DANIELA-currently getting CAPOX, C3 was on 09/10/2020. Had persistent diarrhea due to enterocolitis so C4 was abandoned. Needed Octreotide to stop diarrhea. Had LAR and ileostomy on 10/24/2020 at [facility]. Reversal of ileostomy was done at [facility]. As of February 28, 2021 white blood cell count 4.2 with a hemoglobin 13.5 and hematocrit 39.7 and platelet count of 358,000. BUN 17 creatinine 1.08. CEA levels. April 20, 2020 6.8 and May 22, 2020 8.8 in July 24, 1999 2110 and November 27, 2020 5.8 and on February 28, 2021 6.9 02/25/2021 CT a/p reviewed. CT/Abdomen/Pelvis WITH Contrast IMPRESSION: Anastomosis seen in the region of the rectum. Moderate amount of fecal material is seen in the colon. Diffuse fatty infiltration of the liver. Diffuse bladder wall thickening. Electronically Signed: Salty Montero MD at 14:36 EST I have personally reviewed the CT scan. The patient has history of a right lower quadrant diverting ileostomy. That fascial site appears to be intact. The extraction site based upon the umbilicus through a vertical incision however demonstrates a ventral incisional hernia on the CT imaging. The patient states that he has been having some intermittent discomfort and firmness in the right periumbilical area. Colonoscopy of April 19 2021 performed per myself demonstrated hemorrhoids, patent end-to-end colorectal anastomosis ROS General General: Yes colon cancer; No weight change, appetite, fatigue, breast cancer or weakness HEENT HEENT: No difficulty swallowing, eye injury, eye surgery, swollen glands or hoarseness Endo Endocrine: No thyroid disease, diabetes mellitus, thyroid cancer, Hair loss, heat intolerance or cold intolerance Musc Musculoskeletal: No back problems, arthritis, rheumatoid arthritis, gout or joint pain Cardio Cardiovascular: Yes high blood pressure; No murmur, pacemaker, heart disease, atrial fibrillation, heart attack, heart stent, palpitations, shortness of breat with exertion or chest pain Psych Psychiatric: No depression, anxiety or hearing voices Resp Respiratory: No shortness of breath, No sleep apnea, No cough, No COPD, No asth ma, No emphysema and No wheezing Gastro Gastrointestinal: No abdominal pain, No nausea or vomiting, No diarrhea, No constipation, No blood in stool, No acid reflux, No hemorrhoids, No ulcers, No gallbladder problem and No black,tarry stools Jorje Hematologic: No blood thinners, No blood disorders, No bleeding, No anemia and No blood clots Neuro Neurologic: No weakness Exam Const General: cooperative, healthy appearing, comfortable and no acute distress Nutritional Appearance: average body habitus Orientation: alert and awake [facility] Head: normal to inspection Eyes General: appearance normal, both eyes and all related structures Chest Chest palpation & inspection: normal inspection of the chest Resp Effort & Inspection: normal respiratory effort Auscultation: clear to auscultation bilaterally Cardio Rate: regular rate Rhythm: regular rhythm GI Other: Soft, well-healed ileostomy site right lower quadrant with no palpable defect, notable for fixed fascial defect at the supraumbilical area measuring at least 4 to 5 cm in diameter. Partially reducible. Normal bowel sounds. Musc Cervical Spine: normal cervical lordosis Skin General: no rashes or lesions noted Neuro General: patient alert, patient awake and patient oriented x3 Extrem General: no calf tenderness Psych Appearance: grossly normal Assessment and Plan Assessment and Plan (1) Ventral incisional hernia without obstruction or gangrene: Status: Acute Plan - Dr. Colten Rizvi MD: I recommend to the patient a hybrid open and laparoscopic ventral incisional herniorrhaphy with mesh. I anticipate a bilateral subcostal tap block. I discussed with him technique, benefit, risk of alternatives. He has had a diverting ileostomy in the right lower quadrant. He has had a laparoscopic low anterior resection. He is doing very well from his rectal cancer surgery. He is aware that there are no guarantees of success and I do anticipate postoperative recovery time. He is aware of technique, benefit, risk of alt ernatives. We will schedule procedure at his discretion. I very much appreciate the ongoing opportunity of assisting with his surgical care. Copy: Dr. Johann Ramirez and Dr. Victoriano Rizvi M.D., F.A.C.S. Coding Level of Care Code Off vis,est,level 2 Diagnoses Ventral incisional hernia without obstruction or gangrene K43.2 06/13/21 0859<Electronically signed by Colten Rizvi MD>Date Colten Rizvi MD I have re-examined the patient. There are no clinical changes since date of exam. Colten Rizvi M.D., F.A.C.S.
[2021-07-08] MEDS: Lactated Ringers 1,000 ML 15 ML IV ×2 (06:52→11:22)
[2021-07-08] MEDS: Cefazolin 2 GM in 0.9% Normal Saline 100 ML IV (07:29)
--- NOTE | 2021-07-08 07:36 | PCM.DC ---
Documented by User: Dr. Colten Rizvi MD 07/08/21 07:36 Discharge Instructions Diet Discharge Diet: Light diet - advance as tolerated (if you have questions about your diet instructions, please talk to you doctor.) Activity Discharge Activity: May Not Drive (for 3-5 days or while taking narcotic pain medicine.) May shower in (days): 1 Lifting Restrictions: 10 pounds Dressing / Incision Call your doctor if your incision/area has: Continuous Slow Oozing, Sudden Increased Bleeding, Increased Pain/ Swelling, Increased Redness and Foul Smelling Discharge Call your doctor if you observe: Fever of 101 or Higher Suture Line Care: Avoid Pulling/Pushing and Avoid Pinching/Bending Additional Dressing/Incision Instructions:: Change or remove dressing in 4 days. Leave steri-strips in place for 1 week. Follow Up Care Please Follow Up With: Colten Rizvi MD When: Call [phone] to make an appointment to be seen in about 10 days. Test Results: Test results from this visit will be discussed in further detail at your follow-up appointment, if applicable. Discharge Plan Admission Admit Date/Time: 07/08/21 11:02 Primary Reason for Your Visit: Ventral incisional hernia repair x 2 with lysis of adhesions Attending Provider: Colten Rizvi Primary Care Provider: Johann Ramirez Additional Instructions / Restrictions: If you experience constipation, you may take Miralax daily to assist with bowel movements. You may also take Gas-X or similar product to relieve any gas pain/discomfort you may be experiencing. Recommend a heating pad as needed throughout the day. Be sure not to keep the heating pad in one place for greater than 20 minutes for fear of causing a burn. Discharge Orders/Prescriptions Prescriptions: New oxycodone 5 mg Tablet 5 - 10 mg PO Q4H PRN PRN (Reason: Pain Score 4-10) Qty: 0 RF: 0 Continued Probiotic 15 billion cell capsule, sprinkle 1 cap PO DAILY RF: 0 aspirin 81 MG tablet,chewable 81 mg PO DAILY RF: 0 hydrochlorothiazide 25 MG tablet 25 mg PO DAILY RF: 0 amlodipine 5 mg tablet 10 mg PO DAILY RF: 0 magnesium oxide 500 MG capsule 500 mg PO DAILY RF: 0 acetaminophen 500 mg tablet 500 mg PO DAILY PRN (Reason: pain) RF: 0 Other Ambulatory Orders: 12 Lead EKG (Routine) Timeframe: [id number] Location: None Selected Ordered By: Dr. Luis Lara Referrals / Follow Up: Johann Ramirez MD [Primary Care Provider] - Disposition Disposition (needs filled in before D/C Order can be placed): Home, Self Care Documented by User: Jennyfer NEW PA-C 07/09/21 14:25 Discharge Plan Admission Admit Date/Time: 07/08/21 11:02 Primary Reason for Your Visit: Ventral incisional hernia repair x 2 with lysis of adhesions Attending Provider: Colten Rizvi Primary Care Provider: Johann Ramirez Instructions Additional Instructions / Restrictions: If you experience constipation, you may take Miralax daily to assist with bowel movements. You may also take Gas-X or similar product to relieve any gas pain/discomfort you may be experiencing. Recommend a heating pad as needed throughout the day. Be sure not to keep the heating pad in one place for greater than 20 minutes for fear of causing a burn. Discharge Orders/Prescriptions Prescriptions: New oxycodone 5 mg Tablet 5 - 10 mg PO Q4H PRN PRN (Reason: Pain Score 4-10) Qty: 0 RF: 0 Continued Probiotic 15 billion cell capsule, sprinkle 1 cap PO DAILY RF: 0 aspirin 81 MG tablet,chewable 81 mg PO DAILY RF: 0 hydrochlorothiazide 25 MG tablet 25 mg PO DAILY RF: 0 amlodipine 5 mg tablet 10 mg PO DAILY RF: 0 magnesium oxide 500 MG capsule 500 mg PO DAILY RF: 0 acetaminophen 500 mg tablet 500 mg PO DAILY PRN (Reason: pain) RF: 0 Other Ambulatory Orders: 12 Lead EKG (Routine) Timeframe: [id number] Location: None Selected Ordered By: Dr. Luis Lara Referrals / Follow Up: Johann Ramirez MD [Primary Care Provider] - Disposition Disposition (needs filled in before D/C Order can be placed): Home, Self Care
[2021-07-08] MEDS: BUPIVACAINE LIPOSOME/PF 20 ML VIAL OPERA.SITE (08:00)
[2021-07-08] MEDS: Bupivacaine 0.25% 30 ML Vial (08:00)
[2021-07-08] MEDS: 0.9% Normal Saline (Pres. free 10 ML Vial (08:00)
[2021-07-08] MEDS: Lidocaine 1% (20 ml mdv) 20 ML Vial (08:00)
--- NOTE | 2021-07-08 10:55 | PCM.OPRPT ---
Problems Associated Problem List Diagnoses (1) Ventral incisional hernia without obstruction or gangrene: Report of Operation Date of Procedure: 07/08/21 Pre-Operative Diagnosis: Symptomatic midline supraumbilical ventral incisional hernia Post-Operative Diagnosis: Symptomatic supraumbilical ventral incisional hernia with large hernia sac. Right Patti-rectus ileostomy stomal incisional hernia Surgery/Procedure Performed:: Hybrid open and then laparoscopic ventral incisional herniorrhaphies x2 with extensive lysis of adhesions. Ventral light ST mesh: 20.3 x 25.4 cm Reference [id number], lot [id number], expiry date 12/18/2021 Description of Surgical Findings:: Timeout informed consent was obtained. 56-year-old gentleman was taken to the operating placement table underwent general tracheal intubation esthesia. Ancef 2 g were given intravenously. The abdomen sterilely prepped and draped. Ioban draping was used as well. Local consisting of 20 cc of Exparel with 30 cc of 0.25% Marcaine with 20 cc of 1% lidocaine diluted with saline to 110 cc was used for the tap block and local anesthesia. Local was instilled. There is super umbilical vertical scar was elliptically vertically excised. Sharp dissection carried down through the subcu tissue. A very thick and enlarged hernia sac encountered this was dissected free from the subcutaneous attachments and then amputated. I then got into the retroperitoneal plane circumferentially extent extensive amount of adhesiolysis was required to achieve this. Then partially approximated the fascia with #1 simple sutures of Nurolon inserted and Araujo catheter insufflated the abdomen. Under visualization up with 2 5 Perez ports in the left mid abdomen upper quadrant an additional 5 Perez trocar in the epigastric area and 2 more 5 mm ports in the right mid abdomen. There is evidence of the midline hernia at the site of the umbilicus there was also a hernia at the right perirectal site at the where the terminal small bowel was still adherent. This an additional adhesions to the anterior abdominal wall were inspected they were sharply lysed. I elected to completely free the terminal ileum so that I would not get a torsion and this was very tedious. I then can continue to dissect free and get the peritoneum completely dissected free circumferentially so as to combine the repair of the incisional hernia at the midline ventral site and the right superior rectus hernia at the ileostomy site. The peritoneum dissected free took me an hour of dissection. Then I selected the 2.3 x 25.[address] mesh 4 corner sutures tomorrow Gill was placed the mesh was furled placed within the abdomen the abdomen was reinsufflated the mesh was unfurled one of the sutures had come loose I placed the mesh horizontally lengthwise and a transverse fashion used a grainy needle to help parachute the mesh Added a 0 Prolene suture on the left lateral aspect using a grainy needle secure the mesh. Then used secure strap at approximately 2 cm intervals circumferentially across the mesh some further secure strap was used midline. I removed the son close the fascia remaining with simple sutures of 0 nylon went back into abdominally and then used the peritoneum to secure strap to cover the mesh to the best my ability. I then loaded the mesh with the platform architect. Majority the mesh was covered but not all. I made sure that the greater omentum was overlying the bowel. The terminal ileum was inspected where the ileostomy was that was noted to be completely intact and it appeared to be absolutely no bowel injury. Under laparoscopic visualization a bilateral tap block had been performed. Having now achieved that trochars removed abdomen soft deflate under an antiviral valve. Skin edges recommended running subicular 4-0 Monocryl. Steri-Strips Telfa OpSite dressings applied. Sponge and instrument and needle counts were reported to the surgeon to be correct. Specimens ventral incisional hernia sac. Drains none. Blood loss minimal. The patient was taken to recovery area in satisfactory addition without apparent complication Colten Rizvi M.D., F.A.C.S. Surgeon: Colten Rizvi Type of Anesthesia: General and Local Anesthesiologist: Radha Kovacs
[2021-07-08] MEDS: Acetaminophen 500 MG Tablet 1000 MG PO ×2 (15:38→20:38)
[2021-07-08] MEDS: Cefazolin 1 GM/50 ML BAG IV (15:38)
--- NOTE | 2021-07-08 16:48 | PCM.PN.SRG ---
Subjective Subjective Patient with 3 out of 10 pain. He has been able to urinate. He has been out of bed to go to the bathroom. Objective Data Objective Data Vital Signs: Vital Signs Temp Pulse Resp BP Pulse Ox 98.2 F 65 14 143/87 H 94 07/08/21 16:08 07/08/21 16:08 07/08/21 16:08 07/08/21 16:08 07/08/21 16:08 Oxygen Flow Rate (L/min) 2 Oxygen Delivery Method Nasal Cannula Weight: 224 lb 3.362 oz Body Mass Index (BMI) 32.1 Intake & Output: Intake and Output for Last 24 Hours 07/06/21 07/07/21 07/08/21 23:59 23:59 23:59 Intake Total 2109 Balance 2109 Lab / Micro Data Result Diagrams: 07/05/21 13:05 07/05/21 13:05 Micro: Microbiology 07/05/21 14:06 Interface Orders SARS-CoV-2 Antigen (Rapid) - Final Physical Exam GI GI Narrative: Soft, slightly distended, not focally tender Assessment & Plan Assessment/Plan (1) Ventral incisional hernia without obstruction or gangrene: PLAN: Initial progress appears good. We will hold clear liquids tonight. Patient is encouraged to ambulate. Colten Rizvi M.D., F.A.C.S.
[2021-07-08] MEDS: oxyCODONE 5 MG Tablet PO ×2 (16:58→22:42)
[2021-07-08] MEDS: Lactated Ringers 1,000 ML 40 ML IV (22:41)
[2021-07-08] MEDS: Docusate Sodium 100 MG Capsule PO (22:42)
[2021-07-09 02:33] VITALS: BP 131/73; PULSE 68; RESP 16; TEMP 36.6; O2SAT 94
[2021-07-09] MEDS: Acetaminophen 500 MG Tablet 1000 MG PO ×4 (02:57→20:33)
[2021-07-09 06:08] LABS: Hematocrit 34.5 % (40-54); Hemoglobin 11.4 g/dL (13.0-16.5); Mean Corpuscular Hgb 28.1 pg (27.0-32.0); Mean Corpuscular Volume 85.2 fL (80-94); Mean Platelet Vol. 10.2 fl (6.2-12.0); Platelet Count 251 K/mm3 (150-450); RBC Distribution Width CV 13.7 % (11.6-14.6); RBC Distribution Width SD 42.9 fl (35.1-43.9); Red Blood Count 4.05 M/mm3 (4.6-6.2)
--- NOTE | 2021-07-09 06:08 | PCM.PN.SRG ---
Subjective Subjective Patient has been up and ambulating. He is still on nasal prong oxygen. Burping. No nausea. No flatus. Abdominal soreness noted. This is improved with using the heating pad. Objective Data Objective Data Vital Signs: Vital Signs Temp Pulse Resp BP Pulse Ox 98 F 68 16 131/73 H 94 07/09/21 02:33 07/09/21 02:33 07/09/21 02:33 07/09/21 02:33 07/09/21 02:33 Oxygen Flow Rate (L/min) 2 Oxygen Delivery Method Nasal Cannula Weight: 224 lb 3.362 oz Body Mass Index (BMI) 32.1 Intake & Output: Intake and Output for Last 24 Hours 07/07/21 07/08/21 07/09/21 23:59 23:59 23:59 Intake Total 3620 / 4120 500 / 500 Output Total 500 / 500 Balance 3620 / 3620 0 / 0 Lab / Micro Data Result Diagrams: 07/05/21 13:05 07/05/21 13:05 Micro: Microbiology 07/05/21 14:06 Interface Orders SARS-CoV-2 Antigen (Rapid) - Final Physical Exam Resp clear to auscultation bilaterally Resp Narrative: Slight splinting with deep inspiration GI GI Narrative: Abdomen is softly distended, bowel sounds nonspecific and present, dressings clean and dry Assessment & Plan Assessment/Plan (1) Ventral incisional hernia without obstruction or gangrene: PLAN: Steady progress. The patient is encouraged to continue ambulate and be up out of bed as much as possible. Will hold a clear liquids for the moment. Reassess the patient later today.
[2021-07-09 06:48] LABS: Anion Gap 7 (5-15); BUN 11 mg/dL (7-18); BUN/Creat Ratio 12.7 RATIO (10-20); Chloride 109 mmol/L (98-107); Creatinine, Serum 0.87 mg/dL (0.70-1.30); EST Glomerular Filtration Rate 97 mL/min (>60); Est Glom Filt Rate - Afr Amer 117 mL/min (>60); Estimated Creatinine Clearance 97.89 ml/min; Glucose 133 mg/dL (74-106); Potassium 3.7 mmol/L (3.5-5.1); Sodium Level 140 mmol/L (136-145)
--- NOTE | 2021-07-09 09:18 | PCM.PN.BLA ---
Progress Note Evaluated patient resting comfortably in bed. He notes passing a moderate amount of flatus this morning. No BM. He feels less distended and sore. He is still noting some pressure throughout the abdomen. He is urinating well. Assessment & Plan Assessment/Plan (1) Ventral incisional hernia without obstruction or gangrene: PLAN: We will re-evaluate later this afternoon.
[2021-07-09] MEDS: Magnesium Chloride 64 MG Delay Rel.Tablet 128 MG PO (09:40)
[2021-07-09] MEDS: Docusate Sodium 100 MG Capsule PO ×2 (09:41→22:05)
[2021-07-09] MEDS: Aspirin 81 MG TAB.CHEW PO (09:41)
[2021-07-09] MEDS: Enoxaparin 40 MG/0.4 ML Syringe SC (09:41)
[2021-07-09] MEDS: amLODIPine 10 MG Tablet PO (09:41)
[2021-07-09] MEDS: hydroCHLOROthiazide 25 MG Tablet PO (09:41)
[2021-07-09 10:00] VITALS: BP 129/83; PULSE 50; RESP 18; TEMP 36.7; O2SAT 92
[2021-07-09] MEDS: oxyCODONE 5 MG Tablet PO ×3 (10:02→20:33)
[2021-07-09 14:52] VITALS: BP 122/79; PULSE 55; RESP 17; TEMP 37; O2SAT 91
[2021-07-09 19:46] VITALS: BP 142/90; PULSE 64; RESP 18; TEMP 36.8; O2SAT 92
[2021-07-09] MEDS: 0.9% Saline Lock 10 ML Syringe IV (20:34)
[2021-07-10 02:25] VITALS: BP 149/94; PULSE 74; RESP 18; TEMP 37.2; O2SAT 95
[2021-07-10] MEDS: Acetaminophen 500 MG Tablet 1000 MG PO ×2 (02:35→10:20)
[2021-07-10] MEDS: oxyCODONE 5 MG Tablet PO ×2 (02:36→07:52)
--- NOTE | 2021-07-10 06:21 | PN.SURG_ITS ---
Subjective Subjective Patient is having some abdominal muscular wall spasms. He is passing flatus. No stools. 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 Objective Data Objective Data Vital Signs: Vital Signs Temp Pulse Resp BP Pulse Ox 99 F 74 18 149/94 H 95 07/10/21 02:25 07/10/21 02:25 07/10/21 02:25 07/10/21 02:25 07/10/21 02:25 Oxygen Flow Rate (L/min) 3 Oxygen Delivery Method Nasal Cannula Weight: 224 lb 3.362 oz Body Mass Index (BMI) 32.1 Intake & Output: Intake and Output for Last 24 Hours 07/08/21 07/09/21 07/10/21 23:59 23:59 23:59 Intake Total 3620 / 4120 1560 / 1560 2801.5 / 2801.5 Output Total 2100 / 2100 1500 / 1500 Balance 3620 / 3620 -540 / -540 1301.5 / 1301.5 Lab / Micro Data Result Diagrams: 07/09/21 05:17 07/09/21 05:17 Labs: Laboratory Results - last 24 hr 07/09/21 05:17: Sodium 140, Potassium 3.7, Chloride 109 H, Carbon Dioxide 24.0, Anion Gap 7, BUN 11, Creatinine 0.87, Estim Creat Clear Calc 97.89, Est GFR (MDRD) Af Amer 117, Est GFR (MDRD) Non-Af 97, BUN/Creatinine Ratio 12.7, Glucose 133 H, Calcium 8.0 L Micro: Microbiology 07/05/21 14:06 Interface Orders SARS-CoV-2 Antigen (Rapid) - Final Physical Exam GI GI Narrative: Soft, distended, bowel sounds active Assessment & Plan Assessment/Plan (1) Ventral incisional hernia without obstruction or gangrene: PLAN: The patient notes that subsequent to his previous colon surgery and ileostomy takedown his bowels were slow to return to function. He is passing flatus. Still slightly distended. He is now off his nasal prong oxygen. Continue to encourage him to mobilize and ambulate. Hopefully home later today. He requests no home-going narcotics. Colten Rizvi M.D., F.A.C.S.
[2021-07-10 06:55] VITALS: O2SAT 95
[2021-07-10 07:58] VITALS: BP 153/90; PULSE 70; RESP 14; TEMP 36.9; O2SAT 89
[2021-07-10] MEDS: Aspirin 81 MG TAB.CHEW PO (08:26)
[2021-07-10 08:27] VITALS: BP 159/93; PULSE 78; RESP 18; TEMP 37.2; O2SAT 92
[2021-07-10] MEDS: Enoxaparin 40 MG/0.4 ML Syringe SC (10:21)
[2021-07-10] MEDS: Magnesium Chloride 64 MG Delay Rel.Tablet 128 MG PO (10:21)
[2021-07-10] MEDS: hydroCHLOROthiazide 25 MG Tablet PO (10:21)
[2021-07-10] MEDS: Docusate Sodium 100 MG Capsule PO (10:22)
[2021-07-10] MEDS: amLODIPine 10 MG Tablet PO (10:22)
--- NOTE | 2021-07-10 11:22 | DS.PCM_ITS ---
Providers Date of Admission: 07/08/21 Primary Care Physician: Dr. Johann Ramirez MD Reason For Visit: LAP TO OPEN VENTRAL INCISIONAL HERNIA Diagnosis Discharge Diagnosis (1) Ventral incisional hernia without obstruction or gangrene: Status: Acute Code(s): K43.2 - Incisional hernia without obstruction or gangrene Medications at Discharge Home Medications aspirin 81 mg PO DAILY 06/25/16 hydrochlorothiazide 25 mg PO DAILY 06/25/16 amlodipine 5 mg tablet 10 mg PO DAILY tab 04/16/20 magnesium oxide 500 mg PO DAILY 04/18/20 acetaminophen 500 mg tablet 500 mg PO DAILY PRN 02/28/21 lactobacillus combo no.11 15 billion cell sprinkle capsule 1 cap PO DAILY 02/28/21 oxycodone 5 mg PO Q4H PRN PRN 2 Days #6 tab 07/10/21 Hospital Course Operations - (Hybrid open and then laparoscopic ventral incisional herniorrhaphies x2 with extensive lysis of adhesions. Ventral light ST mesh: 20.3 x 25.4 cm) Summary of Care Provided Minutes Spent on Discharge: 20 Hospital Course: Patient is a 56 y/o M who presents for an elective hybrid open and laparoscopic ventral incisional hernia repair x [address] Rizvi performed Hybrid open and then laparoscopic ventral incisional herniorrhaphies x2 with extensive lysis of adhesions. Ventral light ST mesh: 20.3 x 25.4 cm on 07/08/21. Patient tolerated the procedure well. Post-operatively, patient continued to have abdominal spasms and was not able to complete obtain comfort. Patient was prescribed simethicone which did assist with with gas pains as well. POD #2, patient's abdominal spasms resolved. He has been passing flatus. Negative BM. Upon discharge, patient denies nausea, vomiting. He is tolerating his diet well. He is urinating well. He notes his abdominal spasms have resolved. He is ready to be discharged to home. Physical Exam Const alert, oriented x3 and no apparent distress GI Inspection: abdominal distention Auscultation: normoactive bowel sounds Palpation: soft and tender other (generalized) Weight / BMI Weight Weight: 224 lb 3.362 oz Body Mass Index (BMI) 32.1 ABG / Lab / Microbiology Data Result Diagrams: 07/09/21 05:17 07/09/21 05:17 Microbiology: Microbiology 07/05/21 14:06 Interface Orders SARS-CoV-2 Antigen (Rapid) - Final D/C Instructions Discharge Diet: Light diet - advance as tolerated (if you have questions about your diet instructions, please talk to you doctor.) May shower in (days): 1 Call your doctor if your incision/area has: Continuous Slow Oozing, Sudden Increased Bleeding, Increased Pain/ Swelling, Increased Redness and Foul Smellin g Discharge Call your doctor if you observe: Fever of 101 or Higher Suture Line Care: Avoid Pulling/Pushing and Avoid Pinching/Bending Additional Dressing/Incision Instructions: Change or remove dressing in 4 days. Leave steri-strips in place for 1 week. Please Follow Up With: Colten Rizvi MD When: Call [phone] to make an appointment to be seen in about 10 days. Meaningful Use Info Meaningful Use Diagnoses (Choose all that apply): None applicable Discharge Plan Admission Admit Date/Time: 07/08/21 11:02 Primary Reason for Your Visit: Ventral incisional hernia repair x 2 with lysis of adhesions Attending Provider: Colten Rizvi Primary Care Provider: Johann Ramirez Instructions Additional Instructions / Restrictions: If you experience constipation, you may take Miralax daily to assist with bowel movements. You may also take Gas-X or similar product to relieve any gas pain/discomfort you may be experiencing. Recommend a heating pad as needed throughout the day. Be sure not to keep the h eating pad in one place for greater than 20 minutes for fear of causing a burn. Discharge Orders/Prescriptions Prescriptions: New oxycodone 5 mg tablet 5 mg PO Q4H PRN PRN (Reason: Pain Score 4-10) 2 Days Qty: 6 RF: 0 Continued Probiotic 15 billion cell capsule, sprinkle 1 cap PO DAILY RF: 0 aspirin 81 MG tablet,chewable 81 mg PO DAILY RF: 0 hydrochlorothiazide 25 MG tablet 25 mg PO DAILY RF: 0 amlodipine 5 mg tablet 10 mg PO DAILY RF: 0 magnesium oxide 500 MG capsule 500 mg PO DAILY RF: 0 acetaminophen 500 mg tablet 500 mg PO DAILY PRN (Reason: pain) RF: 0 Other Ambulatory Orders: 12 Lead EKG (Routine) Timeframe: [id number] Location: None Selected Ordered By: Dr. Luis Lara Referrals / Follow Up: Ramirez,Johann, MD [Primary Care Provider] - Disposition Disposition (needs filled in before D/C Order can be placed): Home, Self Care Charges/Coding Visit Charges Inpatient E&M: 19841 Disch Hosp (No charge; post-op)
[2021-07-10] MEDS: 0.9% Saline Lock 10 ML Syringe IV (12:01)
[2021-07-10 12:29] VITALS: BP 119/81; PULSE 57; RESP 16; TEMP 36.9; O2SAT 96
== END 2021-07-10 12:30 | disposition home or self-care (01) ==
LOC: SDC 13:32 → MS3 16:36
PROVIDERS: Anesthesiology; Admitting Provider Surgery; PCP Family Medicine; Referring Provider Surgery; Visit Provider Surgery
PROC: 0WQF4ZZ Repair Abdominal Wall, Percutaneous Endoscopic Approach (ICD-10-PCS; CPT 49560; principal; 2021-07-08 07:10)
DX: K43.2 Incisional hernia without obstruction or gangrene (principal); D70.9 Neutropenia, unspecified; C20 Malignant neoplasm of rectum; K76.0 Fatty (change of) liver, not elsewhere classified; I10 Essential (primary) hypertension; R14.2 Eructation; Z87.891 Personal history of nicotine dependence; Z79.899 Other long term (current) drug therapy; Z79.82 Long term (current) use of aspirin; K59.00 Constipation, unspecified; R19.7 Diarrhea, unspecified; G25.81 Restless legs syndrome; R49.0 Dysphonia; I45.10 Unspecified right bundle-branch block
CPT/HCPCS: 49560; 49568; 00832; 36415; 80048; 85027; 87426; 88302; 93005; 94762; 96365; 96372; 99218; 99251; C9803; J7120; A4216; C1781; G0378; G0463; J2405; J3490

== ENCOUNTER → 2021-09-27 | Outpatient (CLI) | payer OTHER, SELFPAY ==
[2020-05-07 08:21] VITALS: BMI 31.8
--- NOTE | 2021-09-27 14:52 | CT_ITS ---
EXAM: CT ABDOMEN AND PELVIS WITH INTRAVENOUS CONTRAST CLINICAL INDICATION: MONITOR RECTAL CA. REOMOVAL/CHEMO AND RADIATION TECHNIQUE: Helically acquired images were obtained of the abdomen and pelvis with intravenous contrast. This CT exam was performed using one or more of the following dose reduction techniques: automated exposure control, adjustment of the mA and/or kV according to patient size, and/or use of iterative reconstruction technique. This report was created using [employer] report generation technology. CONTRAST: Oral and amp; IV Redi-CAT and amp; 100mL Isovue-300 RADIATION DOSE: CTDIvol = 11.28 mGy, DLP = 875.35 mGy-cm COMPARISON: February 25, 2001. FINDINGS: LOWER THORAX: Unremarkable. Lung bases are clear. No cardiomegaly. No significant pericardial effusion. ABDOMEN: LIVER: Unremarkable. Homogeneous. No focal mass. GALLBLADDER AND BILE DUCTS: Minimally distended gallbladder. No calcified gallstones. No intra- or extrahepatic biliary ductal dilation. PANCREAS: Unremarkable. No focal cystic or solid mass. SPLEEN: Unremarkable. Normal size without focal cystic or solid mass. ADRENALS: Unremarkable. No nodules. KIDNEYS AND URETERS: Unremarkable. Normal renal size and position. No hydronephrosis. STOMACH AND BOWEL: Similar appearance of postoperative changes of the rectum, mild gas in the lower rectum, similar loss of left lateral fat plane adjacent to the postoperative changes but no rachell intrapelvic or retroperitoneal adenopathy. Oral contrast reached the ileocecal junction, no small bowel obstruction. There is moderate stool in the right colon, mild gas and stool in the mid to distal colon. No focal inflammatory change. PELVIS: APPENDIX: Normal appendix is best seen on the sagittal images. BLADDER: Mildly thick walled urinary bladder appears similar, it is mildly distended to 9.6 cm with roughly 5 mm wall, no focal thickening, the wall was 6 mm on prior exam. REPRODUCTIVE: Similar mild fullness of the prostate, transverse diameter 4.3 cm. Vasectomy clips and slight fat in the inguinal rings are noted. ABDOMEN and PELVIS: INTRAPERITONEAL SPACE: Unremarkable. No ascites or other fluid collection. No free air. BONES/JOINTS: Unremarkable. No suspicious lytic or blastic abnormality. SOFT TISSUES: Unremarkable. No discrete abdominal or pelvic wall hernia. VASCULATURE: Unremarkable. Abdominal aorta is non-dilated. LYMPH NODES: Small inguinal lymph nodes are stable. CT/Abdomen/Pelvis WITH Contrast IMPRESSION: Stable exam. Persistent mild diffuse wall thickening of the urinary bladder. Similar postoperative changes of the rectum. No suspicious adenopathy or nodules. Electronically Signed: Gail Damon MD at 7:55 EDT ,
[2021-09-27] MEDS: 0.9% Saline Lock 10 ML Syringe IV (15:35)
[2021-09-27 15:56] LABS: CREATININE FINGERSTICK 1.1 mg/dL (0.70-1.30); EGFR FINGERSTICK > 60.0000 mL/min (>60)
[2021-09-27 16:36] LABS: Absolute Neutrophil Count 2.3 X10^3/uL (2.0-7.7); Basophil# 0.04 X10^3/uL; Eosinophil# 0.12 X10^3/uL; Eosinophils% 3.1 % (0-5); Hematocrit 41.7 % (40-54); Hemoglobin 13.9 g/dL (13.0-16.5); Lymphocyte % 23.6 % (19-41); Mean Corp Hgb Conc 33.3 g/dL (32-36); Mean Corpuscular Hgb 28.4 pg (27.0-32.0); Mean Corpuscular Volume 85.1 fL (80-94); Mean Platelet Vol. 10.6 fl (6.2-12.0); Monocyte# 0.46 X10^3/uL; Monocyte% 12.1 % (0-10); NRBC Flagged by Analyzer 0 % (0-5); Neutrophil # 2.27 X10^3/uL (2.7-7.7); Neutrophil % 59.7 % (47-70); Platelet Count 330 K/mm3 (150-450); RBC Distribution Width CV 13.5 % (11.6-14.6); White Blood Count 3.8 K/mm3 (4.4-11.0)
[2021-09-27 16:47] LABS: ALB/GLOB Ratio 1.1 RATIO (0.9-2.4); AST(SGOT) 17 U/L (15-37); Alanine Aminotransfer ALT/SGPT 27 U/L (16-61); Albumin, Serum 3.9 g/dL (3.2-5.0); Alkaline Phosphatase 81 U/L (45-117); Anion Gap 7 (5-15); BUN 13 mg/dL (7-18); BUN/Creat Ratio 11.6 RATIO (10-20); Calcium,Total 9.3 mg/dL (8.5-10.1); Chloride 104 mmol/L (98-107); Creatinine, Serum 1.12 mg/dL (0.70-1.30); EST Glomerular Filtration Rate 72 mL/min (>60); Est Glom Filt Rate - Afr Amer 87 mL/min (>60); Globulin 3.4 g/dL (2.2-4.2); Glucose 95 mg/dL (74-106); LDH 169 U/L (87-241); Potassium 3.7 mmol/L (3.5-5.1); Protein, Total 7.3 g/dL (6.4-8.2); Sodium Level 140 mmol/L (136-145)
[2021-09-29 13:11] LABS: Carcinoembryonic Antigen 6.8 ng/mL (0.0-4.7)
== END | disposition home or self-care (01) ==
LOC: CT 14:51
PROVIDERS: PCP Family Medicine; Referring Provider Internal Medicine Medical Oncology; Visit Provider Internal Medicine Medical Oncology
DX: C20 Malignant neoplasm of rectum (principal); Z92.21 Personal history of antineoplastic chemotherapy
CPT/HCPCS: 74177; 80053; 82378; 83615; 85025; Q9967; A4216

== ENCOUNTER → 2022-02-17 | Outpatient (CLI) | payer OTHER, SELFPAY ==
[2020-05-07 08:21] VITALS: BMI 31.8
[2022-02-17 12:18] LABS: Absolute Lymphocyte Count 0.64 X10^3/uL (0.83-4.51); Absolute Neutrophil Count 2.2 X10^3/uL (2.0-7.7); Basophil# 0.05 X10^3/uL; Basophil% 1.4 % (0-1); Eosinophil# 0.15 X10^3/uL; Eosinophils% 4.3 % (0-5); Hematocrit 43.2 % (40-54); Hemoglobin 14.4 g/dL (13.0-16.5); Lymphocyte # 0.64 X10^3/ul (0.83-4.51); Lymphocyte % 18.6 % (19-41); Mean Corp Hgb Conc 33.3 g/dL (32-36); Mean Corpuscular Hgb 28.9 pg (27.0-32.0); Mean Corpuscular Volume 86.6 fL (80-94); Mean Platelet Vol. 10.5 fl (6.2-12.0); Monocyte# 0.37 X10^3/uL; Monocyte% 10.7 % (0-10); NRBC Flagged by Analyzer 0 % (0-5); Neutrophil # 2.22 X10^3/uL (2.7-7.7); Neutrophil % 64.4 % (47-70); Platelet Count 323 K/mm3 (150-450); RBC Distribution Width CV 13.4 % (11.6-14.6); RBC Distribution Width SD 42.6 fl (35.1-43.9); Red Blood Count 4.99 M/mm3 (4.6-6.2); White Blood Count 3.5 K/mm3 (4.4-11.0)
[2022-02-17 12:50] LABS: Vitamin D,25 Hydroxy 11.6 ng/mL
[2022-02-17 13:02] LABS: Cholesterol 209 mg/dL (200); High Density Lipoprotein 65 mg/dL; PSA,Total - Annual Screen 1.37 ng/mL (0.00-4.00); Thyroid Stim Hormone (TSH) 3.25 uIU/mL (0.358-3.74); Triglycerides 203 mg/dL; Very Low Density Lipoprotein 41 mg/dL (5-40)
== END | disposition home or self-care (01) ==
LOC: MFPLAB 09:28
PROVIDERS: PCP Family Medicine; Visit Provider Family Medicine
DX: Z00.00 Encounter for general adult medical examination without abnormal findings (principal); R53.83 Other fatigue; Z12.5 Encounter for screening for malignant neoplasm of prostate
CPT/HCPCS: 36415; 80061; 82306; 84153; 84403; 84443; 85025; G0103

== ENCOUNTER → 2022-03-26 | Outpatient (CLI) | payer OTHER, SELFPAY ==
[2020-05-07 08:21] VITALS: BMI 31.8
--- NOTE | 2022-03-26 08:25 | CT_ITS ---
EXAM: CT CHEST, ABDOMEN AND PELVIS WITH INTRAVENOUS CONTRAST CLINICAL INDICATION: rectal cancer, surveillance TECHNIQUE: Helically acquired images were obtained of the chest, abdomen and pelvis with intravenous contrast. This CT exam was performed using one or more of the following dose reduction techniques: automated exposure control, adjustment of the mA and/or kV according to patient size, and/or use of iterative reconstruction technique. This report was created using [employer] report generation technology. CONTRAST: IV 100mL Isovue-300 COMPARISON: CT chest 05/03/2020, CT abdomen and pelvis 09/27/2021 FINDINGS: CHEST: LUNGS AND PLEURAL SPACES: Normal. No mass. No consolidation or edema. No pleural effusion or thickening. No pneumothorax. HEART: Normal. Heart size is normal. No pericardial effusion. MEDIASTINUM: Normal. No mediastinal or hilar adenopathy. Esophagus is unremarkable. No hiatal hernia. THYROID: Normal. No thyroid lesions. ABDOMEN: LIVER: Normal. Homogeneous. No focal mass. GALLBLADDER AND BILE DUCTS: Normal. No calcified gallstones. No gallbladder distention or wall edema. No intra- or extrahepatic biliary ductal dilation. PANCREAS: Normal. No focal cystic or solid mass. SPLEEN: Normal. Normal size without focal cystic or solid mass. ADRENALS: Normal. No nodules. KIDNEYS AND URETERS: Normal. Normal renal size and position. No hydronephrosis. STOMACH AND BOWEL: Surgical anastomosis at the level of the rectum is unchanged. No evidence of residual or recurrent neoplasm. Surgical anastomosis of the small bowel is again seen. PELVIS: APPENDIX: Appendix is visualized and normal in appearance. BLADDER: Normal. REPRODUCTIVE: Unremarkable as visualized. No mass. CHEST, ABDOMEN and PELVIS: INTRAPERITONEAL SPACE: There is focal fat stranding adjacent to the descending colon in a pattern consistent with appendagitis epiploica. No ascites or other fluid collection. No free air. BONES/JOINTS: Normal. No suspicious lytic or blastic abnormality. SOFT TISSUES: Normal. No discrete abdominal or pelvic wall hernia. VASCULATURE: Normal. Aorta is non-dilated. No aortic dissection. No obvious central pulmonary embolism although this study was not performed with the pulmonary embolism protocol. LYMPH NODES: Normal. No enlarged lymph nodes. TUBES, LINES AND DEVICES: Tip of the right IJ infusion catheter extends into the superior vena cava. CT/CT Chest, Abd, Pel w/Contrast IMPRESSION: No evidence of residual or recurrent neoplasm. Electronically Signed: Royce Gonzales MD at 9:39 EST ,
[2022-03-26] MEDS: 0.9 % NaCl (Sterile) Posiflush 10 mL IV (08:30)
[2022-03-26] MEDS: 0.9% Saline Lock 10 ML Syringe IV (08:40)
== END | disposition home or self-care (01) ==
LOC: CT 08:24
PROVIDERS: PCP Family Medicine; Visit Provider Internal Medicine Medical Oncology
DX: C20 Malignant neoplasm of rectum (principal)
CPT/HCPCS: 71260; 74177; Q9967; A4216

== ENCOUNTER → 2022-04-23 | Outpatient (CLI) | payer OTHER, SELFPAY ==
[2020-05-07 08:21] VITALS: BMI 31.8
== END | disposition home or self-care (01) ==
LOC: SL 20:20
PROVIDERS: PCP Family Medicine; Referring Provider Nurse Practitioner Acute Care; Visit Provider Nurse Practitioner Acute Care
DX: G47.33 Obstructive sleep apnea (adult) (pediatric) (principal)
CPT/HCPCS: 95810

== ENCOUNTER → 2022-05-02 | Outpatient (CLI) | payer OTHER, SELFPAY ==
[2020-05-07 08:21] VITALS: BMI 31.8
--- NOTE | 2022-05-02 08:46 | ECHOCS_ITS ---
Reason For Study: ARRHYTHMIA Procedure This was a 2D Doppler, Color Flow transthoracic echocardiogram. The study was technically difficult. Exam performed in department. Left Ventricle Normal size and thickness. Mild concentric left ventricular hypertrophy. Left ventricular systolic function is normal. The estimated ejection fraction is 55 %. Stage 1 diastolic dysfunction. No regional wall motion abnormalities noted. Right Ventricle Normal RV size. Normal systolic function. Atria Normal left atrium. Normal right atrium. Mitral Valve Normal mitral valve. Tricuspid Valve Normal tricuspid valve. Aortic Valve Trisinus/trileaflet aortic valve. Pulmonic Valve The pulmonic valve is not well visualized. Great Vessels Normal aortic root. The pulmonary artery is normal size. Normal inferior vena cava. Pericardium/Pleural No pericardial effusion. Medication 22 gauge I.V. with prn adaptor inserted into right arm. Diluted definity 1.5ml given slow IV push to enhance endocardial definition. MMode/2D Measurements & Calculations LVIDd: 4.1 cm IVSd: 1.2 cm Ao root diam: 3.8 cm LVIDs: 2.8 cm LVPWd: 1.2 cm RVDd: 3.5 cm FS: 31.7 % LAV(MOD-bp): 42.0 ml LVAd ap4: 39.3 cm2 SV(MOD-sp4): 85.6 ml LAV(MOD-bp) Indexed: 19.0 ml/m2 LVLd ap4: 8.9 cm LAV(MOD-sp2): 42.2 ml EDV(MOD-sp4): 142.6 ml LAV(MOD-sp4): 41.3 ml EDV(sp4-el): 146.9 ml LVAs ap4: 21.7 cm2 LVLs ap4: 7.3 cm ESV(MOD-sp4): 57.0 ml ESV(sp4-el): 55.2 ml EF(MOD-sp4): 60.0 % EF(sp4-el): 62.4 % SV(sp4-el): 91.7 ml LA A4 area: 16.4 cm2 LA dimension(2D): 3.9 cm RA A4 area: 15.3 cm2 Time Measurements MV dec time: 0.29 sec Doppler Measurements & Calculations MV E max eliazar: 52.5 cm/sec Lat Peak E' Eliazar: 12.8 cm/sec Med Peak E' Eliazar: 7.3 cm/sec MV A max eliazar: 53.8 cm/sec E/E' lat: 4.1 E/E' med: 7.2 MV E/A: 0.98 Ao V2 max: 115.0 cm/sec LV V1 max: 116.4 cm/sec PA V2 max: 102.3 cm/sec Ao max P.3 mmHg LV V1 max P.4 mmHg ECHO/Echo Complete W/ Contrast Interpretation Summary Normal size and thickness. Left ventricular systolic function is normal. The estimated ejection fraction is 55 %. Stage 1 diastolic dysfunction. Mild concentric left ventricular hypertrophy. Contrast injection was performed. Ordering Physician: Amrit Garcia Referring Physician: PRESTON GARRETT Performed By: Josefina Miller RDCS
--- NOTE | 2022-05-02 16:54 | STRESSREP ---
Stress Test Report Exercise stress test. 57-year-old man with a history of abnormal EKG Stress protocol: Resting EKG demonstrates sinus bradycardia with a rate of 51 bpm and a right bundle branch block with resting blood pressure is 162/88 mmHg. The patient exercised according to the regular Jack protocol for a total duration of 9 minutes attaining a maximum heart rate of 137 bpm which was 84% of maximum predicted heart rate; the maximum workload was 10.4 metabolic equivalents. At rest there were no ST or T wave changes noted to suggest ischemia and at peak exercise upsloping ST changes only were noted which did not meet the criteria for ischemia. The patient maintained sinus rhythm throughout the recording with a right bundle branch block pattern. No clinical angina was noted the test was terminated due to the target heart rate being achieved/fatigue. The peak blood pressure was 206/94 mmHg. Rate-pressure product was 28,200. Conclusion: Normal exercise myocardial perfusion stress test at a high workload. Right bundle branch block is noted with appropriate chronotropic competence.
== END | disposition home or self-care (01) ==
PROVIDERS: PCP Family Medicine; Referring Provider Internal Medicine Cardiovascular Disease; Visit Provider Internal Medicine Cardiovascular Disease
DX: I45.10 Unspecified right bundle-branch block (principal); I25.10 Atherosclerotic heart disease of native coronary artery without angina pectoris; I10 Essential (primary) hypertension
CPT/HCPCS: 93017; 93306; Q9957; A4216; C8929

== ENCOUNTER → 2022-05-05 | Outpatient (CLI) | payer OTHER, SELFPAY ==
[2020-05-07 08:21] VITALS: BMI 31.8
== END | disposition home or self-care (01) ==
LOC: PSN 09:40
PROVIDERS: PCP Family Medicine; Visit Provider Internal Medicine Cardiovascular Disease
DX: I45.10 Unspecified right bundle-branch block (principal); I10 Essential (primary) hypertension
CPT/HCPCS: 93225; 93226

== ENCOUNTER → 2022-10-23 | Outpatient (CLI) | payer OTHER, SELFPAY ==
[2020-05-07 08:21] VITALS: BMI 31.8
--- NOTE | 2022-10-23 08:18 | CT_ITS ---
STUDY: CT ABDOMEN AND PELVIS WITH CONTRAST REASON FOR EXAM: Male, 57 years old. MONITOR RECTAL CANCER; IV ONLY RADIATION DOSAGE (If Supplied By Facility): CTDIvol = ( 17.85 ) mGy, DLP = ( 1297.20 ) mGycm TECHNIQUE: Transaxial images were obtained from the dome of the diaphragm to the symphysis pubis without oral contrast. IV 100mL Isovue-370 was administered. Sagittal and coronal images were reconstructed. Individualized dose optimization techniques were used for this CT. COMPARISON: Comparison is made with prior study dated September 27, 2021. FINDINGS: The visualized lung bases are unremarkable. The visualized portions of the heart are within normal limits. There is decreased attenuation of the liver consistent with steatosis. Normal gallbladder and extrahepatic biliary system. Normal spleen. Normal pancreas. Normal bilateral adrenal glands. Normal right kidney. Normal left kidney. Normal visualized stomach. Normal small intestine. Surgical anastomosis is stable in the rectum. Sutures are also seen in the region of the descending colon. Sigmoid diverticulosis. The appendix is visualized and appears normal. Normal abdominal aorta. Normal inferior vena cava. Normal retroperitoneum. Normal urinary bladder. There are prostatic calcifications. Vasectomy clips are once again seen. There is a left-sided inguinal hernia containing adipose tissue. There are mild degenerative changes of the visualized lumbar spine. CT/Abdomen/Pelvis W IV Cont ONLY IMPRESSION: Stable examination. Fatty infiltration of the liver. Electronically Signed: Salty Montero MD at 15:07 EDT ,
[2022-10-23 09:20] LABS: Absolute Lymphocyte Count 0.72 X10^3/uL (0.83-4.51); Absolute Neutrophil Count 2.1 X10^3/uL (2.0-7.7); Basophil# 0.04 X10^3/uL; Basophil% 1.2 % (0-1); Eosinophil# 0.13 X10^3/uL; Eosinophils% 3.8 % (0-5); Hematocrit 40.7 % (40-54); Lymphocyte # 0.72 X10^3/ul (0.83-4.51); Lymphocyte % 21.2 % (19-41); Mean Corp Hgb Conc 34.4 g/dL (32-36); Mean Corpuscular Hgb 28.7 pg (27.0-32.0); Mean Corpuscular Volume 83.6 fL (80-94); Mean Platelet Vol. 9.6 fl (6.2-12.0); Monocyte# 0.41 X10^3/uL; Monocyte% 12.1 % (0-10); NRBC Flagged by Analyzer 0 % (0-5); Neutrophil # 2.07 X10^3/uL (2.7-7.7); Neutrophil % 61.1 % (47-70); Platelet Count 319 K/mm3 (150-450); RBC Distribution Width CV 13.2 % (11.6-14.6); RBC Distribution Width SD 40.2 fl (35.1-43.9); Red Blood Count 4.87 M/mm3 (4.6-6.2); White Blood Count 3.4 K/mm3 (4.4-11.0)
[2022-10-23 09:50] LABS: AST(SGOT) 18 U/L (15-37); Alanine Aminotransfer ALT/SGPT 32 U/L (16-61); Albumin, Serum 3.4 g/dL (3.2-5.0); Alkaline Phosphatase 76 U/L (45-117); Anion Gap 8 (5-15); BUN 14 mg/dL (7-18); BUN/Creat Ratio 12.7 RATIO (10-20); Calcium,Total 8.8 mg/dL (8.5-10.1); Chloride 104 mmol/L (98-107); EST Glomerular Filtration Rate 73 mL/min (>60); Est Glom Filt Rate - Afr Amer 89 mL/min (>60); Globulin 3.4 g/dL (2.2-4.2); Glucose 102 mg/dL (74-106); LDH 175 U/L (87-241); Potassium 3.8 mmol/L (3.5-5.1); Protein, Total 6.8 g/dL (6.4-8.2); Sodium Level 137 mmol/L (136-145)
[2022-10-23 10:38] LABS: EGFR FINGERSTICK > 60.0000 mL/min (>60)
[2022-10-24 04:07] LABS: Carcinoembryonic Antigen 7.5 ng/mL (0.0-4.7)
== END | disposition home or self-care (01) ==
PROVIDERS: PCP Family Medicine; Referring Provider Internal Medicine Medical Oncology; Visit Provider Internal Medicine Medical Oncology
DX: C20 Malignant neoplasm of rectum (principal)
CPT/HCPCS: 36415; 74177; 80053; 82378; 83615; 85025; Q9967

== ENCOUNTER → 2024-11-15 | Outpatient (CLI) | payer OTHER, SELFPAY ==
[2020-05-07 08:21] VITALS: BMI 31.8
--- NOTE | 2024-11-15 15:55 | RAD_ITS ---
PROCEDURE: CHEST PA AND LATERAL 11/15/2024 REASON FOR EXAM: HX OF RECTAL CA TECHNIQUE: CHEST PA AND LATERAL COMPARISON: Portable chest, 09/21/2020. FINDINGS: The lungs are clear. There is cardiomegaly and aortic tortuosity consistent with benign essential hypertension. There has been interval removal of the right IJ Port-A-Cath. The upper abdominal bowel gas pattern is normal. There are no significant bony abnormalities of the chest. RAD/Chest PA and Lateral IMPRESSION: Findings consistent with hypertension. No evidence of acute cardiopulmonary pa thology. Reading Location: [id number]
== END | disposition home or self-care (01) ==
LOC: RAD 15:58
PROVIDERS: PCP Family Medicine; Referring Provider Internal Medicine Medical Oncology; Visit Provider Internal Medicine Medical Oncology
DX: Z85.048 Personal history of other malignant neoplasm of rectum, rectosigmoid junction, and anus (principal)
CPT/HCPCS: 71046

== ENCOUNTER 2025-02-03 06:07 | Day surgery (SDC) | payer OTHER, SELFPAY ==
[2020-05-07 08:21] VITALS: BMI 31.8
--- NOTE | 2025-02-02 16:57 | PAT.ANESEVAL ---
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 When Was Last Pacemaker Check QUESTION #4 FULL TEXT: You/Your Family Experience fever (hyperthermia) with Anesthesia Last Oral Intake Last Oral intake: Last Oral Intake NPO since Meds taken in AM with sips of water? Meds patient instructed to take am of surgery PONV PONV - hydrogenation operator: PONV - hydrogenation operator Female No 02/02/25 10:53 HX of Motion Sickness No 02/02/25 10:53 HX of N/V After Surgery No 02/02/25 10:53 Non-Smoker Yes 02/02/25 10:53 Duration of Surgery greater No 02/02/25 10:53 than 60 minutes Number of Risk Factors 1 02/02/25 10:53 PONV Score Low Risk 02/02/25 10:53 Height & Weight Height & Weight: Anesthesia: Height & Weight Height 5 ft 10 in 11/15/24 15:35 Respiratory Assessment Respiratory Assessment - hydrogenation operator: Respiratory Tract Infection Hx - hydrogenation operator Hx Respiratory Tract Infection No 02/02/25 10:53 STOP Sleep Apnea STOP Sleep Apnea - hydrogenation operator: STOP Sleep Apnea - hydrogenation operator Hx Hypertension Yes 02/02/25 10:53 Hx Sleep Apnea No 02/02/25 10:53 CPAP BIPAP Do you snore loudly (louder No 02/02/25 10:53 than talking or can be heard Do you often feel tired/ No 02/02/25 10:53 fatigued/ sleepy during daytime? Has anyone observed you stop No 02/02/25 10:53 breathing during sleep? STOP Results Negative 02/02/25 10:53 QUESTION #5 FULL TEXT : Do you snore loudly (louder than talking or can be heard through closed doors)? 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 Specify any problems Hx of Preganancy in last 3 N/A 02/02/25 10:53 Months Nurse Filling Out Transfusion [email or web address] 02/02/25 10:53 & Questions: Date: 02/02/25 02/02/25 10:53 Time: 10:55 02/02/25 10:53 Patient unable to answer at this time (ie. confused, unrespo /Reproduction History /Reproductive History - hydrogenation operator: /Reproductive Hx- hydrogenation operator Hx Now No 02/02/25 10:53 Gestational Age (in weeks): EDC: Hx Hx Para Hx Section SAB No 02/02/25 10:53 Does the father of the baby or his family experience fever w Father of the baby Malignant Hypertension history comment [facility] Medical History (Updated 02/02/25 @ 10:53 by Maribeth Gonzalez) Cardiology follow-up encounter Gastrointestinal problem Essential hypertension Peristomal hernia Hoarseness Wears glasses Cancer Restless legs Former smoker History of echocardiogram Ventral incisional hernia without obstruction or gangrene Constipation Hypokalemia Neutropenia Skin cancer of nose Palmar plantar erythrodysaesthesia Hemorrhoids Blood in stool Diarrhea Abdominal pain Home Medications Medication Instructions Recorded Last Taken Type aspirin 81 mg chewable tablet 81 mg PO DAILY heart health 06/25/16 07/07/21 History hydrochlorothiazide 25 mg tablet 25 mg PO DAILY diuretic 06/25/16 07/07/21 History amlodipine 10 mg tablet 10 mg PO DAILY 04/21/22 Unknown History Allergy/AdvReac Type Severity Reaction Status Date / Time lisinopril Allergy Severe Hives, Verified 02/02/25 10:48 Tongue swelling Family History (Updated 12/21/24 @ 14:11 by Faby Shukla) Mother High cholesterol Hypertension CVA (cerebral vascular accident) Colon polyps Kidney disease Father High cholesterol Hypertension Heart failure Afib CAD (coronary artery disease) Myocardial infarction Melanoma Sister Hypertension Uterine cancer Sister Hypertension Surgical History History of colostomy reversal Hx of ventral hernia repair (07/18/21) History of colonoscopy (~03/2021) Hx of colectomy Hx of surgical procedure History of low anterior resection of rectum History of vasectomy Social History household members: spouse and family Smoking Status: Never smoker alcohol intake: current alcohol intake frequency: a few times a month substance use type: does not use caffeine: Yes Type: coffee Number of servings: 4 Audit: Pertinent Findings Pertinent Findings EKG Perinent findings: 07/05/2021. Sinus bradycardia at 52 bpm with occasional PVCs. LAD. RBBB. Stress test pertinent findings: May 02, 2022. Patient achieved 10.4 METS. Normal exercise myocardial perfusion stress test at high workload. Right bundle branch block is noted with appropriate chronotropic competence. Echo (EF%) pertinent findings: May 02, 2022. EF of 55%. No aortic stenosis. Consult pertinent findings: 12/24/2023. Alex PIMENTEL. 1. Hypertension-elevated in the office today. Usually 130s systolic at home per the patient. Patient to stay on amlodipine and hydrochlorothiazide. He is reluctant to start another medication. Continue to monitor blood pressures at home. 2. Right bundle branch block.-Stress test was negative at a high workload. Echo showed preserved ejection fraction. Appropriate heart rate response to exercise. Will continue to monitor. 3. Palpitations-continue to monitor. Last Holter showed PVC count of 1.2% which may be contributing to his symptoms. Hold off beta-blockers considering average heart rate of 61 bpm. Will repeat Holter if symptoms worsen. Additional pertinent findings: Holter monitor. May 05, 2022. Base rate is sinus rhythm. Ventricular ectopy is 1.2%. Supraventricular ectopy is 0.3%. No atrial fibrillation noted. No ventricular runs noted. No activity or symptoms noted in the 24-hour diary. Recommendation Anesthesia Recommendation Anesthesia recommendation: OPTIMIZED for anesthesia
[2025-02-03] VITALS (7 sets, daily range): BP systolic 105–152; BP diastolic 70–89; PULSE 45–57; RESP 16–20; TEMP 36–36.4; O2SAT 93–97; BMI 33.8
--- NOTE | 2025-02-03 06:31 | PCM.HP.STD ---
[facility] - General General Date of Admission: 02/03/25 Date of Service: 02/03/25 Chief Complaint: Rectal cancer surveillance HPI Narrative LUIS CARLISLE, is a 59 M who presents [Chief Complaint: History of colorectal cancer Patient with history of colorectal cancer identified on CT abdomen pelvis in March 2020. Colonoscopy showing a large fungating, obstructing mass in the rectosigmoid colon, mass was 12 cm from the anal verge. Pathology showing invasive adenocarcinoma. Patient underwent surgery with ileostomy and reversal, chemo and radiation therapy. Patient is currently in remission. Patient has a sigmoidoscopy at [facility] every [address] Dang yearly. Patient denies any new changes in his bowel habits. He denies family history of colon cancer. 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 Hemorrhoids Blood in stool Diarrhea Abdominal pain Home Medications Medication Instructions Recorded Last Taken Type aspirin 81 mg chewable tablet 81 mg PO DAILY heart health 06/25/16 02/02/25 History hydrochlorothiazide 25 mg tablet 25 mg PO DAILY diuretic 06/25/16 02/02/25 History amlodipine 10 mg tablet 10 mg PO DAILY 04/21/22 02/02/25 History Allergy/AdvReac Type Severity Reaction Status Date / Time lisinopril Allergy Severe Hives, Verified 02/02/25 10:48 Tongue swelling Family History Mother High cholesterol Hypertension CVA (cerebral vascular accident) Colon polyps Kidney disease Father High cholesterol Hypertension Heart failure Afib CAD (coronary artery disease) Myocardial infarction Melanoma Sister Hypertension Uterine cancer Sister Hypertension Surgical History History of colostomy reversal Hx of ventral hernia repair (07/18/21) History of colonoscopy (~03/2021) Hx of colectomy Hx of surgical procedure History of low anterior resection of rectum History of vasectomy Social History household members: spouse and family Smoking Status: Never smoker alcohol intake: current alcohol intake frequency: a few times a month substance use type: does not use caffeine: Yes Type: coffee Number of servings: 4 ROS Constitutional Constitutional: Denies fatigue, fever(s), poor appetite, weight gain or weight loss Gastrointestinal Gastrointestinal: Denies belching, bloating, change in bowel habits, change in stool character, chewing difficulty, coffee ground emesis, constipation, cramping, diarrhea, dyspepsia, dysphagia, early satiety, excessive flatus, fecal incontinence, heartburn, hematemesis, hematochezia, hemorrhoids, loose stools, melena, nausea, odynophagia, rectal bleeding, tenesmus, vomiting or weight changes Physical Exam Const alert, oriented x3, no apparent distress and healthy appearing General Appearance: cooperative GI normal to inspection, nondistended, normoactive bowel sounds, soft to palpation, non-tender and non-distended Percussion: normal to percussion Rectal Exam: deferred Assessment & Plan Assessment/Plan (1) H/O malignant neoplasm of rectum: PLAN: Assessment and Plan Assessment and Plan (1) Rectal adenocarcinoma: Status: Chronic Comment: Received DANIELA-currently getting CAPOX, C3 was on 09/10/2020. Had persistent diarrhea due to enterocolitis so C4 was abandoned. Needed Octreotide to stop diarrhea. Had LAR and ileostomy on 10/24/2020 at [facility]. Reversal of ileostomy was done at [facility]. CT 09/27/2020 shows no metastatic disease. CEA was 6.8 on 09/27/2021. CT 03/26/2022 reviewed, no evidence of metastatic disease. Comes for follow up. CT 10/28/2024 report reviewed, no evidence of progressive disease. CEA 7 on 10/17/2024. No evidence of disease clinically. Plan: Luis is a 59-year-old male patient here today for evaluation. Patient has a past medical history of colorectal cancer diagnosed in 2020 after having severe constipation, cramping and blood in his stool. Patient underwent surgery with ileostomy, chemo and radiation. Ileostomy was reversed. Patient currently in remission with a sigmoidoscopy every 6 months and follow-up with Dr. Dang yearly. Patient was advised to have a screening colonoscopy therefore was referred to our office. Patient feeling well with no changes in his bowel habits recently. Patient will be scheduled for colonoscopy today. -Colonoscopy - Follow-up as needed ]
[2025-02-03] MEDS: Lactated Ringers 1,000 ML 15 ML IV (06:43)
--- NOTE | 2025-02-03 06:53 | PCM.PRE.AN2 ---
ASA Classification* ASA Classification ASA Classification: 2 Assessment & Plan Anesthesia* Anesthesia Assessment Anesthesia Assessment: Discussed sedation and/or anesthesia options, risks, benefits, and alternatives with patient/parents/legal guardian/POA. Questions invited. The patient/parents/legal guardian/POA seems to understand and agrees to proceed with anesthesia plan. Reviewed the physical assessment, medical history, allergy history and patient home medications list prior to surgery/procedure/anesthetic and documented any changes. Performed airway and anesthesia risk assessments. Anesthesia Type Anesthesia Type: MAC History Source History Obtained from:: Patient and Chart Anesthesia Focused Assessment* Temperature: 97.6 F Pulse Rate: 57 Blood Pressure: 152/89 Respiratory Rate: 16 Pulse Ox: 94 Oxygen Delivery Method: Room Air Airway Assessment Mouth opens: >3 cm Mallampati Score: IV Teeth Condition: Intact Neck Range of motion (ROM): Full ROM Labs Anesthesia Preop lab: CBC WBC, (4.4-11.0) 4.4 K/mm3 10/17/24, : RBC, (4.6-6.2) 4.83 M/mm3 10/17/24, : Hgb, (13.0-16.5) 13.7 g/dL 10/17/24, : Hct, (40-54) 40.8 % 10/17/24, : Plt Count, (150-450) 318 K/mm3 10/17/24, : CHEMISTRY Potassium, (3.3-5.1) 4.2 mmol/L 10/17/24, : Sodium, (133-145) 139 mmol/L 10/17/24, : Magnesium, (1.6-2.6) 2.2 mg/dL 11/27/20, 10:05 Phosphorus, (2.5-4.9) 3.1 mg/dL 10/01/20, 08:50 BUN, (4-19) 9 mg/dL 10/17/24, : Creatinine, (0.70-1.20) 1.08 mg/dL 10/17/24, : Glucose, (70-99) 143 mg/dL H 10/17/24, : TSH, (0.358-3.74) 3.25 uIU/mL 02/17/22, 09:28 COAG Pre-Assessment Diagnosis/Proposed Procedure Planned Operative Procedure(s): Colonoscopy Anesthesia History 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 When Was Last Pacemaker Check QUESTION #4 FULL TEXT: You/Your Family Experience fever (hyperthermia) with Anesthesia Last Oral Intake Last Oral intake: Last Oral Intake NPO since 03:00 02/03/25 06:41 Meds taken in AM with sips of No 02/03/25 06:41 water? Meds patient instructed to take am of surgery Any additional information?: Yes NPO since: 03:00 (Patient finished his preop prep at 3 AM.) Meds taken in AM with sips of water?: No PONV PONV - trap puller: PONV - trap puller Female No 02/02/25 10:53 HX of Motion Sickness No 02/02/25 10:53 HX of N/V After Surgery No 02/02/25 10:53 Non-Smoker Yes 02/02/25 10:53 Duration of Surgery greater No 02/02/25 10:53 than 60 minutes Number of Risk Factors 1 02/02/25 10:53 PONV Score Low Risk 02/02/25 10:53 Height & Weight Height & Weight: Anesthesia: Height & Weight Height 5 ft 10 in 02/03/25 06:41 Weight: 107 kg 02/03/25 06:41 Body Mass Index (BMI) 33.8 02/03/25 06:41 Respiratory Assessment Respiratory Assessment - trap puller: Respiratory Tract Infection Hx - trap puller Hx Respiratory Tract Infection No 02/02/25 10:53 STOP Sleep Apnea STOP Sleep Apnea - trap puller: STOP Sleep Apnea - trap puller Hx Hypertension Yes 02/02/25 10:53 Hx Sleep Apnea No 02/02/25 10:53 CPAP BIPAP Do you snore loudly (louder No 02/02/25 10:53 than talking or can be heard Do you often feel tired/ No 02/02/25 10:53 fatigued/ sleepy during daytime? Has anyone observed you stop No 02/02/25 10:53 breathing during sleep? STOP Results Negative 02/02/25 10:53 QUESTION #5 FULL TEXT : Do you snore loudly (louder than talking or can be heard through closed doors)? 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 Specify any problems Hx of Preganancy in last 3 N/A 02/02/25 10:53 Months Nurse Filling Out Transfusion NIKA 02/02/25 10:53 & Questions: Date: 02/02/25 02/02/25 10:53 Time: 10:55 02/02/25 10:53 Patient unable to answer at this time (ie. confused, unrespo /Reproduction History /Reproductive History - trap puller: /Reproductive Hx- trap puller Hx Now No 02/02/25 10:53 Gestational Age (in weeks): EDC: Hx Hx Para Hx Section SAB No 02/02/25 10:53 Does the father of the baby or his family experience fever w Father of the baby Malignant Hypertension history comment Active Medications Active Medications: Current Medications Generic Name Dose Route Start Last Admin Trade Name Freq PRN Reason Stop Dose Admin Lactated Ringer's 1,000 mls @ 15 mls/hr 02/03/25 06:15 02/03/25 06:43 IV 15 mls/hr .Q48H TAMIKO Administration PFSH Medical History Cardiology follow-up encounter Gastrointestinal problem Essential hypertension Peristomal hernia Hoarseness Wears glasses Cancer Restless legs Former smoker History of echocardiogram Ventral incisional hernia without obstruction or gangrene Constipation Hypokalemia Neutropenia Skin cancer of nose Palmar plantar erythrodysaesthesia Hemorrhoids Blood in stool Diarrhea Abdominal pain Home Medications Medication Instructions Recorded Last Taken Type aspirin 81 mg chewable tablet 81 mg PO DAILY heart health 06/25/16 02/02/25 History hydrochlorothiazide 25 mg tablet 25 mg PO DAILY diuretic 06/25/16 02/02/25 History amlodipine 10 mg tablet 10 mg PO DAILY 04/21/22 02/02/25 History Allergy/AdvReac Type Severity Reaction Status Date / Time lisinopril Allergy Severe Hives, Verified 02/02/25 10:48 Tongue swelling Family History Mother High cholesterol Hypertension CVA (cerebral vascular accident) Colon polyps Kidney disease Father High cholesterol Hypertension Heart failure Afib CAD (coronary artery disease) Myocardial infarction Melanoma Sister Hypertension Uterine cancer Sister Hypertension Surgical History History of colostomy reversal Hx of ventral hernia repair (07/18/21) History of colonoscopy (~03/2021) Hx of colectomy Hx of surgical procedure History of low anterior resection of rectum History of vasectomy Social History household members: spouse and family Smoking Status: Never smoker alcohol intake: current alcohol intake frequency: a few times a month substance use type: does not use caffeine: Yes Type: coffee Number of servings: 4 Review of Systems (Anesthesia) ROS Narrative System reviewed and no additional complaints, except as documented.
--- NOTE | 2025-02-03 07:00 | COLBX_PTH ---
PATIENT: EZ CARLISLE LOC: EN U#:[id number] AGE/SX: 59/M ROOM: RE02/03/[address]: Dr. Hubert Chacko DO : 1965 BED: DIS: 02/03/2025 SPEC #: [id number] RECD: 02/03/25 07:58 STATUS: TRISTA REIsha #: [id number] NICK: 02/03/25 07:[address]: Hubert Chacko DEPT: SURGICAL PATHOLOGY RECD BY: Sathya Guerrero ENTERED: 02/03/25 09:18 SP TYPE: COLON BX OT DR: Dr. Johann Ramirez MD Tissues: A - Sigmoid colon biopsy B - Cecum, NOS C - COLON BIOPSY Procedures: Surgery Specimen Level IV HEADER OPERATION: Colonoscopy, polypectomy, biopsy PRE-OP DIAGNOSIS: Rectal adenocarcinoma TISSUE SUBMITTED: A- Sigmoid polyp, B- Cecal polyp, C- Anastomosis biopsy MICROSCOPIC DIAGNOSIS A. Colon, Sigmoid colon, polyp, biopsy: * Tubular adenoma B. Colon, Cecum, polyp, biopsy: * Tubular adenoma C. Colon, Anastomosis, biopsy: * Benign colonic mucosa with focally dilated crypts MICROSCOPIC DESCRIPTION Slides are reviewed. GROSS DESCRIPTION A. Received in fixative is one container labeled with the patient's name and designated "Sigmoid polyp." The specimen consists of three irregular fragments of nicole tissue that measure 0.1 to 0.6 cm. The specimen is totally submitted in one cassette. B. Received in fixative is one container labeled with the patient's name and designated "Cecal polyp." The specimen consists of four irregular fragments of nicole tissue that measure <0.1 to 0.3 cm. The specimen is totally submitted in one cassette. C. Received in fixative is one container labeled with the patient's name and designated "Anastamosis biopsy." The specimen consists of four irregular fragments of nicole tissue that measure 0.3 to 0.5 cm. The specimen is totally submitted in one cassette. [place] 02/03/2025 CPT:[id number]
--- NOTE | 2025-02-03 07:32 | PCM.POST.ANE ---
Anesthesia: Postop Eval I Current Vital Signs Temperature: 97.1 F Pulse Rate: 50 Blood Pressure: 105/70 Respiratory Rate: 20 Pulse Ox: 95 Assessment Airway patent: Yes Spontaneous unlabored respirations: Yes nausea: No Vomiting: No Anesthesia Complication: No Fluid Hydration Crystalloid volume administer (ml): 500 Total IV fluid infused: 500 Progress Note Anesthesia document: Postop Eval 1 completed: Yes
--- NOTE | 2025-02-03 07:34 | OP.COLON_ITS ---
Patient Name: Luis Kan Procedure Date: 02/03/2025 6:59 AM Date of : 1965 Age: 59 Procedure: Colonoscopy Indications: High risk colon cancer surveillance: Personal history of colon cancer Providers: Hubert Chacko DO Referring MD: Johann Ramirez MD Medicines: Monitored Anesthesia Care Patient Profile: This is a 59 year old male. Refer to note in patient chart for documentation of history and physical. Last Colonoscopy: several years ago. Complications: No immediate complications. Procedure: Pre-Anesthesia Assessment: - Prior to the procedure, a History and Physical was performed, and patient medications and allergies were reviewed. The patient is competent. The risks and benefits of the procedure and the sedation options and risks were discussed with the patient. All questions were answered and informed consent was obtained. Patient identification and proposed procedure were verified by the physician in the pre-procedure area. Mental Status Examination: alert and oriented. Airway Examination: normal oropharyngeal airway and neck mobility. Respiratory Examination: clear to auscultation. CV Examination: normal. Prophylactic Antibiotics: The patient does not require prophylactic antibiotics. Prior Anticoagulants: The patient has taken no anticoagulant or antiplatelet agents. ASA Grade Assessment: II - A patient with mild systemic disease. After reviewing the risks and benefits, the patient was deemed in satisfactory condition to undergo the procedure. The anesthesia plan was to use monitored anesthesia care (MAC). Immediately prior to administration of medications, the patient was re-assessed for adequacy to receive sedatives. The heart rate, respiratory rate, oxygen saturations, blood pressure, adequacy of pulmonary ventilation, and response to care were monitored throughout the procedure. The physical status of the patient was re-assessed after the procedure. After I obtained informed consent, the scope was passed under direct vision. Throughout the procedure, the patient's blood pressure, pulse, and oxygen saturations were monitored continuously. The Colonoscope was introduced through the anus and advanced to the cecum, identified by appendiceal orifice and ileocecal valve. The colonoscopy was performed without difficulty. The patient tolerated the procedure well. The quality of the bowel preparation was adequate. The ileocecal valve, appendiceal orifice, and rectum were photographed. Scope In: 7:11:03 AM Scope Withdrawal Time 0 hours 8 minutes 42 seconds Scope Out: 7:28:00 AM Total Procedure Duration Time 0 hours 16 minutes 57 seconds Findings: The perianal and digital rectal examinations were normal. There was evidence of a prior end-to-end colo-colonic anastomosis in the rectum. This was patent and was characterized by healthy appearing mucosa. The anastomosis was traversed. Biopsies were taken with a cold forceps for histology. Verification of patient identification for the specimen was done. Estimated blood loss was minimal. Two sessile polyps were found in the sigmoid colon and cecum. The polyps were 8 mm in size. These polyps were removed with a hot snare. Resection and retrieval were complete. Verification of patient identification for the specimen was done. Estimated blood loss was minimal. Retroflexion in the rectum was not performed due to post-surgical anatomy. The exam was otherwise without abnormality. Impression: - Patent end-to-end colo-colonic anastomosis, characterized by healthy appearing mucosa. Biopsied. - Two 8 mm polyps in the sigmoid colon and in the cecum, removed with a hot snare. Resected and retrieved. - The examination was otherwise normal. Recommendation: - Discharge patient to home. - Resume previous diet. - Continue present medications. - Await pathology results. - Repeat colonoscopy in 2 years for surveillance. Procedure Code(s): --- Professional --- 05382, Colonoscopy, flexible; with removal of tumor(s), polyp(s), or other lesion(s) by snare technique 57096, 59, Colonoscopy, flexible; with biopsy, single or multiple CPT copyright 2021 [employer]. All rights reserved. The codes documented in this report are preliminary and upon naphthalene still operator review may be revised to meet current compliance requirements. Hubert Chacko DO 02/03/2025 7:33:57 AM This report has been signed electronically. Number of Addenda: 0 Note Initiated On: 02/03/2025 6:59 AM
--- NOTE | 2025-02-03 07:34 | OP.PROVAT_ITS ---
02/03/2025 Johann Ramirez MD [address] [id number] Re : Colonoscopy procedure for Luis Kan Dear Dr. Ramirez This procedure was performed on Monday, February 03, 2025. My impressions and recommendations are as follows: Impressions : - Patent end-to-end colo-colonic anastomosis, characterized by healthy appearing mucosa. Biopsied. - Two 8 mm polyps in the sigmoid colon and in the cecum, removed with a hot snare. Resected and retrieved. - The examination was otherwise normal. Recommendations : - Discharge patient to home. - Resume previous diet. - Continue present medications. - Await pathology results. - Repeat colonoscopy in 2 years for surveillance. My findings are described in the full procedure note, which is enclosed. If I can be of further assistance, please feel free to contact me at . Sincerely, Hubert Chacko, 02/03/2025 7:33:57 AM This report has been signed electronically.
--- NOTE | 2025-02-03 09:22 | POSTOPAN2_ITS ---
Anesthesia Postop Eval I Sum Postop Eval Completion status Anesthesia document: Postop Eval 1 completed: Yes Anesthesia Postop Eval I Summary Anesthesia Postop Eval I Summary: Anesthesia Postop Eval I: Assessment Summary Airway patent Yes 02/03/25 07:35 CYBER LEGAL ADVISOR.CSIR Spontaneous unlabored Yes 02/03/25 07:35 CYBER LEGAL ADVISOR.CSIR respirations Mental status nausea No 02/03/25 07:35 CYBER LEGAL ADVISOR.CSIR Vomiting No 02/03/25 07:35 CYBER LEGAL ADVISOR.CSIR Anesthesia Postop Eval I: Fluid Summary Crystalloid volume administer 500 02/03/25 07:35 CYBER LEGAL ADVISOR.CSIR (ml) Colloids volume administered ( ml) Blood Product volume administered (ml) Total IV fluid infused 500 02/03/25 07:35 CYBER LEGAL ADVISOR.CSIR Anesthesia Postop Eval I: Summary Notes Anesthesia Complication No 02/03/25 07:35 CYBER LEGAL ADVISOR.CSIR Anesthesia Complication Comment: Post-operative progress note Anesthesia: Postop Eval II Evaluation Mental status: Awake Pain Level: 0 nausea: No Vomiting: No
--- NOTE | 2025-02-03 09:22 | PCM.POSTANE2 ---
Anesthesia Postop Eval I Sum Postop Eval Completion status Anesthesia document: Postop Eval 1 completed: Yes Anesthesia Postop Eval I Summary Anesthesia Postop Eval I Summary: Anesthesia Postop Eval I: Assessment Summary Airway patent Yes 02/03/25 07:35 HARNESS WORKER.CSIR Spontaneous unlabored Yes 02/03/25 07:35 HARNESS WORKER.CSIR respirations Mental status nausea No 02/03/25 07:35 HARNESS WORKER.CSIR Vomiting No 02/03/25 07:35 HARNESS WORKER.CSIR Anesthesia Postop Eval I: Fluid Summary Crystalloid volume administer 500 02/03/25 07:35 HARNESS WORKER.CSIR (ml) Colloids volume administered ( ml) Blood Product volume administered (ml) Total IV fluid infused 500 02/03/25 07:35 HARNESS WORKER.CSIR Anesthesia Postop Eval I: Summary Notes Anesthesia Complication No 02/03/25 07:35 HARNESS WORKER.CSIR Anesthesia Complication Comment: Post-operative progress note Anesthesia: Postop Eval II Evaluation Mental status: Awake Pain Level: 0 nausea: No Vomiting: No
== END 2025-02-03 08:10 | disposition home or self-care (01) ==
LOC: EN 06:07 → AC 06:09
PROVIDERS: PCP Family Medicine; Referring Provider Family Medicine; Visit Provider Internal Medicine Gastroenterology
DX: Z12.11 Encounter for screening for malignant neoplasm of colon (principal); I10 Essential (primary) hypertension; Z79.899 Other long term (current) drug therapy; Z85.038 Personal history of other malignant neoplasm of large intestine; Z79.82 Long term (current) use of aspirin; Z98.0 Intestinal bypass and anastomosis status; D12.5 Benign neoplasm of sigmoid colon; D12.0 Benign neoplasm of cecum
CPT/HCPCS: 45380; 45385; 88305; J2405